=== PATIENT | male | born 1945 | race Caucasian/White ===

== ENCOUNTER 2016-07-11 17:50 | Inpatient (IN) | payer MEDICARE, OTHER ==
[2016-07-11] MEDS ORDERED: Sodium Chloride 0.9% 10 ML Syringe FLUSH PRN (18:50)
[2016-07-11] MEDS ORDERED: Sodium Chloride 0.9% 1,000 ML IV SCH (19:00)
[2016-07-11] MEDS ORDERED: HYDROmorphone 0.5 MG/0.5 ML Syringe IVPUSH ONE (20:59)
[2016-07-11] MEDS ORDERED: Ondansetron 4 MG/2 ML SDV IVPUSH ONE (21:00)
--- NOTE | 2016-07-11 22:17 | EDM.PDOC ---
ED HPI LOWER BACK PAIN/INJURY - General Chief Complaint: Back Pain or Injury Stated Complaint: BACK PAIN Time Seen by Provider: 07/11/16 18:13 Source: Reports: Family History Limitations: Reports: Altered mental status - History of Present Illness INITIAL COMMENTS - FREE TEXT/NARRATIVE: This gentleman is brought in today mostly for back pain. He has a history of spinal stenosis and had an MRI last Saturday. He hasn't ointment tomorrow with the orthopedic surgeon. he's had some flulike symptoms for the past week. There 's been back pain for about one month. It's gotten worse over the past 3 days and now he is unable to get out of bed. His said that she and her son had to help him stand to use a walker and then you really couldn't even do that. He also seems to be confused today and doesn't know the day or date. The patient does complain of some generalized back pain he said his skin of all over the lower back. His did not note any leg weakness when she had him stand up. - Related Data Allergies/ADRs: Allergies Allergy/AdvReac Type Severity Reaction Status Date / Time No Known Allergies Allergy Verified 07/11/16 17:59 Home Meds: Home Meds Atenolol [Atenolol] 50 mg PO DAILY 07/11/16 [History] Carvedilol [Carvedilol] 6.25 mg PO BID 07/11/16 [History] HYDROcodone/Ibuprofen [Hydrocodone-Ibuprofen 5-200 mg] 1 each PO Q4HR 07/11/16 [ History] Insulin Glarg,Human.Rec.Analog [Lantus] 50 units SQ BEDTIME 07/11/16 [History] Pantoprazole [Protonix] 40 mg PO DAILY 07/11/16 [History] Ramipril [Ramipril] 10 mg PO BID 07/11/16 [History] Spironolactone 50 mg PO DAILY 07/11/16 [History] Warfarin [Coumadin] 5 mg PO ASDIRECTED 07/11/16 [History] traMADol [Ultram] 50 mg PO Q4H PRN 07/11/16 [History] Past Medical History Cardiovascular History: Reports: Heart valve replacement, Hypertension Respiratory History: Reports: Sleep apnea Gastrointestinal History: Reports: GERD Musculoskeletal History: Reports: Arthritis, Gout Endocrine/Metabolic History: Reports: Diabetes, type II - Infectious Disease History Infectious Disease History: Reports: Chicken pox, Influenza, Measles - Past Surgical History HEENT Surgical History: Reports: Other (see below) Other HEENT Surgeries/Procedures: eye bleed with repair GI Surgical History: Reports: Appendectomy Social & Family History - Tobacco Use Smoking Status *Q: Former Smoker Tobacco Use Comment: quit 20 years ago - Caffeine Use Caffeine Use: Reports: Coffee - Recreational Drug Use Recreational Drug Use: No ED ROS GENERAL - Review of Systems Review Of Systems: See Below (Review of systems Gen. he is given by his ) Constitutional: Reports: weakness HEENT: Reports: No symptoms Respiratory: Reports: no symptoms Cardiovascular: Reports: No symptoms Endocrine: Reports: no symptoms GI/Abdominal: Reports: No symptoms : Reports: no symptoms Musculoskeletal: Reports: no symptoms Skin: Reports: no symptoms Neurological: Reports: confusion Psychiatric: Reports: No symptoms ED EXAM,LOWER BACK PAIN/INJURY - Physical Exam Exam: See Below Exam Limited By: No limitations General Appearance: alert, mild distress Eye Exam: bilateral eye: normal inspection, PERRL Ears: normal TMs Nose: normal inspection Throat/Mouth: Normal inspection, Normal oropharynx Head: atraumatic Neck: normal inspection Respiratory/Chest: lungs clear Cardiovascular: regular rate, rhythm GI/Abdominal: soft, non tender Back Exam: normal inspection Extremities: normal inspection Neurological: alert, CN II-XII intact, other (Appears to move all extremities normally. I did not stand this patient up to check balance) Psychiatric: normal mood Course - Vital Signs Last Recorded V/S: Last Vital Signs Temp 37.4 C 07/11/16 21:14 Pulse 82 07/11/16 19:37 Resp 16 07/11/16 19:37 BP 161/87 H 07/11/16 19:37 Pulse Ox 96 07/11/16 19:37 - Orders/Labs/Meds Orders: Active Orders 24 hr Category Date Time Status EKG Documentation Completion [RC] ASDIRECTED Care 07/11/16 18:50 Active Abdomen Ltd [US] Stat Exams 07/11/16 22:10 Ordered Abdomen Pelvis wo Cont [CT] Stat Exams 07/11/16 21:13 Taken Chest 2V [CR] Urgent Exams 07/11/16 18:50 Taken Head wo Cont [CT] Stat Exams 07/11/16 21:13 Taken Sodium Chloride 0.9% [Normal Saline] 1,000 ml Med 07/11/16 19:00 Active IV ASDIRECTED Sodium Chloride 0.9% [Saline Flush] Med 07/11/16 18:50 Active 10 ml FLUSH ASDIRECTED PRN Saline Lock Insert [OM.PC] Urgent Oth 07/11/16 18:50 Ordered EKG 12 Lead [EK] Urgent Ther 07/11/16 18:50 Ordered Medication Orders Sodium Chloride (Normal Saline) 1,000 mls @ 999 mls/hr IV ASDIRECTED PATRICK Last Admin: 07/11/16 18:58 Dose: 999 mls/hr Sodium Chloride (Saline Flush) 10 ml FLUSH ASDIRECTED PRN PRN Reason: Keep Vein Open Last Admin: 07/11/16 18:58 Dose: 10 ml Labs: Laboratory Tests 07/11/16 07/11/16 07/11/16 Range/Units 18:50 18:50 18:50 WBC 12.6 H (4.5-11.0) K/uL RBC 4.16 L (4.30-5.90) M/uL Hgb 12.5 (12.0-15.0) g/dL Hct 36.8 L (40.0-54.0) % MCV 89 (80-98) fL MCH 30 (27-31) pg MCHC 34 (32-36) % Plt Count 316 (150-400) K/uL Neut % (Auto) 82 H (36-66) % Lymph % (Auto) 7 L (24-44) % [place] % (Auto) 10 H (2-6) % Eos % (Auto) 1 L (2-4) % Baso % (Auto) 0 (0-1) % PT > 100.0 H (9.5-12.0) sec INR (0.80-1.20) Sodium 129 L (140-148) mmol/L Potassium 4.8 (3.6-5.2) mmol/L Chloride 93 L (100-108) mmol/L Carbon Dioxide 27 (21-32) mmol/L Anion Gap 13.8 (5.0-14.0) mmol/L BUN 18 (7-18) mg/dL Creatinine 1.0 (0.8-1.3) mg/dL Est Cr Clr Drug Dosing 79.92 mL/min Estimated GFR (MDRD) > 60 (>60) Glucose 111 H (74-106) mg/dL Calcium 8.7 (8.5-10.1) mg/dL Total Bilirubin 0.8 (0.2-1.0) mg/dL AST 22 (15-37) U/L ALT 19 (12-78) U/L Alkaline Phosphatase 62 (46-116) U/L Total Protein 7.6 (6.4-8.2) g/dL Albumin 2.7 L (3.4-5.0) g/dL Globulin 4.9 H (2.3-3.5) g/dL Albumin/Globulin Ratio 0.6 L (1.2-2.2) Urine Color Urine Appearance Urine pH (4.5-8.0) Ur Specific [place] (1.008-1.030) Urine Protein (NEGATIVE) mg/dL Urine Glucose (UA) (NEGATIVE) mg/dL Urine Ketones (NEGATIVE) mg/dL Urine Occult Blood (NEGATIVE) Urine Nitrite (NEGAITVE) Urine Bilirubin (NEGATIVE) Urine Urobilinogen (NORMAL) mg/dL Ur Leukocyte Esterase (NEGATIVE) Urine RBC (0-5) Urine WBC (0-5) Ur Epithelial Cells Amorphous Sediment Urine Bacteria Urine Mucus 07/11/16 Range/Units 20:07 WBC (4.5-11.0) K/uL RBC (4.30-5.90) M/uL Hgb (12.0-15.0) g/dL Hct (40.0-54.0) % MCV (80-98) fL MCH (27-31) pg MCHC (32-36) % Plt Count (150-400) K/uL Neut % (Auto) (36-66) % Lymph % (Auto) (24-44) % [place] % (Auto) (2-6) % Eos % (Auto) (2-4) % Baso % (Auto) (0-1) % PT (9.5-12.0) sec INR (0.80-1.20) Sodium (140-148) mmol/L Potassium (3.6-5.2) mmol/L Chloride (100-108) mmol/L Carbon Dioxide (21-32) mmol/L Anion Gap (5.0-14.0) mmol/L BUN (7-18) mg/dL Creatinine (0.8-1.3) mg/dL Est Cr Clr Drug Dosing mL/min Estimated GFR (MDRD) (>60) Glucose (74-106) mg/dL Calcium (8.5-10.1) mg/dL Total Bilirubin (0.2-1.0) mg/dL AST (15-37) U/L ALT (12-78) U/L Alkaline Phosphatase (46-116) U/L Total Protein (6.4-8.2) g/dL Albumin (3.4-5.0) g/dL Globulin (2.3-3.5) g/dL Albumin/Globulin Ratio (1.2-2.2) Urine Color Other Urine Appearance Slightly cloudy Urine pH 5.0 (4.5-8.0) Ur Specific [place] 1.025 (1.008-1.030) Urine Protein 30 H (NEGATIVE) mg/dL Urine Glucose (UA) Normal (NEGATIVE) mg/dL Urine Ketones 15 H (NEGATIVE) mg/dL Urine Occult Blood Large (NEGATIVE) Urine Nitrite Negative (NEGAITVE) Urine Bilirubin Small (NEGATIVE) Urine Urobilinogen 4 (NORMAL) mg/dL Ur Leukocyte Esterase Negative (NEGATIVE) Urine RBC 40-50 H (0-5) Urine WBC 0-5 (0-5) Ur Epithelial Cells Few Amorphous Sediment Few Urine Bacteria Rare Urine Mucus Many Meds: Medications Generic Name Dose Route Start Last Admin Trade Name Freq PRN Reason Stop Dose Admin Sodium Chloride 1,000 mls @ 999 mls/hr 07/11/16 19:00 07/11/16 18:58 Normal Saline IV 999 mls/hr ASDIRECTED PATRICK Administration Sodium Chloride 10 ml 07/11/16 18:50 07/11/16 18:58 Saline Flush FLUSH 10 ml ASDIRECTED PRN Administration Keep Vein Open Discontinued Medications Generic Name Dose Route Start Last Admin Trade Name Freq PRN Reason Stop Dose Admin Hydromorphone HCl 0.5 mg 07/11/16 20:59 07/11/16 21:05 Dilaudid IVPUSH 07/11/16 21:00 0.5 mg ONETIME ONE Administration Ondansetron HCl 4 mg 07/11/16 21:00 07/11/16 21:05 Zofran IVPUSH 07/11/16 21:01 4 mg ONETIME ONE Administration - Radiology Interpretation Free Text/Narrative:: Chest x-ray shows normal heart size normal lung markings. Ahead and abdominal CTs were ordered after the patient was passed off to the hospitalist service. The CT shows an evolving cerebellar infarct - Re-Assessments/Exams Free Text/Narrative Re-Assessment/Exam: 07/11/16 22:21 Lore Mckinley with the hospitalist service was contacted and this patient will be admitted for further care Departure - Departure Time of Disposition: 22:21 Disposition: Admitted As Inpatient 67 Condition: serious Clinical Impression: Cerebellar infarct Forms: ED Department Discharge - My Orders Last 24 Hours: My Active Orders 07/11/16 18:50 EKG Documentation Completion [RC] ASDIRECTED Chest 2V [CR] Urgent Sodium Chloride 0.9% [Saline Flush] 10 ml FLUSH ASDIRECTED PRN Saline Lock Insert [OM.PC] Urgent EKG 12 Lead [EK] Urgent 07/11/16 19:00 Sodium Chloride 0.9% [Normal Saline] 1,000 ml IV ASDIRECTED - Assessment/Plan Last 24 Hours: My Active Orders 07/11/16 18:50 EKG Documentation Completion [RC] ASDIRECTED Chest 2V [CR] Urgent Sodium Chloride 0.9% [Saline Flush] 10 ml FLUSH ASDIRECTED PRN Saline Lock Insert [OM.PC] Urgent EKG 12 Lead [EK] Urgent 07/11/16 19:00 Sodium Chloride 0.9% [Normal Saline] 1,000 ml IV ASDIRECTED
[2016-07-11] MEDS ORDERED: HYDROmorphone 1 MG/ML Syringe IVPUSH ONE (22:33)
[2016-07-12] MEDS ORDERED: Albuterol 0.083% 2.5 MG/3 ML Neb Soln NEB PRN (00:10)
[2016-07-12] MEDS ORDERED: Ondansetron 4 MG Tab.DIS PO PRN (00:10)
[2016-07-12] MEDS ORDERED: LORazepam 2 MG/ML MDV IV PRN (00:10)
[2016-07-12] MEDS ORDERED: Zolpidem 5 MG Tab PO PRN (00:10)
[2016-07-12] MEDS ORDERED: HYDROmorphone 1 MG/ML Syringe IVPUSH PRN (00:10)
[2016-07-12] MEDS ORDERED: Bisacodyl 5 MG Tab PO PRN (00:10)
[2016-07-12] MEDS ORDERED: Docusate Sodium 100 MG Cap PO PRN (00:10)
[2016-07-12] MEDS ORDERED: Naloxone 0.4 MG/ML SDV IVPUSH PRN (00:10)
[2016-07-12] MEDS: Sodium Chloride 0.9% 1,000 ML IV SCH ×4 (01:29→19:22)
[2016-07-12] MEDS: Acetaminophen/HYDROcodone 325-5 MG Tab PO PRN ×4 (01:32→21:36)
--- NOTE | 2016-07-12 07:40 | PCM.HP ---
H&P History of Present Illness - General Date of Service: 07/11/16 Admit Problem/Dx: Admission Diagnosis/Problem Admission Diagnosis/Problem Ischemic stroke/CVA Source of Information: Patient, Family (Spouse) History Limitations: Reports: Altered mental status - History of Present Illness Initial Comments - Free Text/Narative: hsitory of present illness, ER notes This gentleman is brought in today mostly for back pain. He has a history of spinal stenosis and had an MRI last Saturday. He has appointment tomorrow with the orthopedic surgeon. he's had some flu-like symptoms for the past week. There's been back pain for about one month. It's gotten worse over the past 3 days and now he is unable to get out of bed. His said that she and her son had to help him stand to use a walker and then you really couldn't even do that. He also seems to be confused today and doesn't know the day or date. The patient does complain of some generalized back pain he said his skin of all over the lower back. His did not note any leg weakness when she had him stand up. reports did not get out of bed for 3 days due to back pain, decreased appetite. no vomiting., diarrhea, or constipation. Report was active and productive until 05-12-2016, when came in the house from working in the garage, sat down on a chair, said he was cold and didn't feel well. then he was sick for a month with flu like illness, worsen back pain, this past 3 weeks , difficulty walking due to weakness, decreasing appetite, weight loss over 15 pounds, he did have a day of confusion in May, but it was felt due to not eating for a couple of days. She is here today for back pain, unable to care for him at home due to increasing weakness, confusion, and pain. labs and imaging: Chest x-ray shows normal heart size normal lung markings. Ahead and abdominal CTs were ordered after the patient was transfer to the hospitalist service. The CT shows an evolving cerebellar infarct abdomen and pelvis; distended gallbladder withh apparent mild pericholecystic stranding versus artifact, splenomegaly. plan; consult with Hospitalist, and [facility] Neurologist; will admit to [facility] for further care and evaluation. Onset of Symptoms: Reports: gradual Duration of Symptoms: Reports: Getting worse Location: Reports: generalized Quality: Reports: Sharp (back), Stabbing (back) Severity: moderate Improves with: Reports: Rest (and medication) Worsens with: Reports: Movement Associated Symptoms: Reports: confusion (new onset), weakness Middle Back Pain Score (Numeric/FACES): 7 - Related Data Allergies/Adverse Reactions: Allergies Allergy/AdvReac Type Severity Reaction Status Date / Time No Known Allergies Allergy Verified 07/11/16 17:59 Home Medications: Home Meds Atenolol [Atenolol] 50 mg PO DAILY 07/11/16 [History] Carvedilol [Carvedilol] 6.25 mg PO BID 07/11/16 [History] HYDROcodone/Ibuprofen [Hydrocodone-Ibuprofen 5-200 mg] 1 each PO Q4HR 07/11/16 [ History] Insulin Glarg,Human.Rec.Analog [Lantus] 50 units SQ BEDTIME 07/11/16 [History] Pantoprazole [Protonix] 40 mg PO DAILY 07/11/16 [History] Ramipril [Ramipril] 10 mg PO BID 07/11/16 [History] Spironolactone 50 mg PO DAILY 07/11/16 [History] Warfarin [Coumadin] 5 mg PO ASDIRECTED 07/11/16 [History] traMADol [Ultram] 50 mg PO Q4H PRN 07/11/16 [History] Past Medical History Cardiovascular History: Reports: Afib, Heart murmur, Heart valve replacement, Hypertension Respiratory History: Reports: Sleep apnea Gastrointestinal History: Reports: GERD Musculoskeletal History: Reports: Arthritis, Back pain, chronic, Gout Other Neuro History: acute confusion in the last 3 days Endocrine/Metabolic History: Reports: Diabetes, type II - Infectious Disease History Infectious Disease History: Reports: Chicken pox, Influenza, Measles - Past Surgical History HEENT Surgical History: Reports: Other (see below) Other HEENT Surgeries/Procedures: eye bleed with repair of retina Cardiovascular Surgical History: Reports: Valve replacement GI Surgical History: Reports: Appendectomy Other Musculoskeletal Surgeries/Procedures:: spinal stenosis Social & Family History - Family History Cardiac: Reports: ID : Reports: None OBGYN: Reports: None Neurological: Reports: Parkinson's Other Neurological Family History: mother Endocrine/Metabolic: Reports: Diabetes, type II - Tobacco Use Smoking Status *Q: Former Smoker Used Tobacco, but Quit: Yes Month Tobacco Last Used: 16 years ago Tobacco Use Comment: quit 20 years ago - Caffeine Use Caffeine Use: Reports: Coffee Other Caffeine Use: a couple cups a day - Recreational Drug Use Recreational Drug Use: No H&P Review of Systems - Review of Systems: Review Of Systems: See Below General: Reports: other (complaints of acute and chronic back pain for the past month.) HEENT: Reports: visual changes (recent hemorrhage of conjunctivia. has been seen by [facility].) Pulmonary: Reports: cough Cardiovascular: Reports: no symptoms Gastrointestinal: Reports: Abdominal pain Genitourinary: Reports: other (decreasing urine output for 3 days) Musculoskeletal: Reports: neck pain, back pain (MRI spinal stenosis.), muscle pain (generalized back) Skin: Reports: dryness Psychiatric: Reports: confusion (Spouse noted changes today, seem confused with intermittent agitation.) Neurological: Reports: confusion, difficulty walking, weakness, gait disturbance Hematologic/Lymphatic: Reports: easy bleeding (coumadin therapy for heart valve , hx a-fib), easy bruising Immunologic: Reports: no symptoms Exam - Exam Exam: See Below - Vital Signs Vital Signs: Last Vital Signs Temp 35.9 C 07/12/16 07:22 Pulse 72 07/12/16 07:22 Resp 18 07/12/16 07:22 BP 159/88 H 07/12/16 07:22 Pulse Ox 97 07/12/16 07:22 Weight: 101.151 kg - Exam General: alert, cooperative, mild distress HEENT: PERRLA, EOMI, Nares patent, Posterior pharynx clear, Pupils equal, Pupils reactive, TMs clear, Glasses (reading), Other (left conjunctivia with resolving hemorrhage) Neck: supple, trachea midline, other (pain at base of neck with palpation.) Lungs: Clear to auscultation, Normal respiratory effort Cardiovascular: regular rate, regular rhythm, normal S1, normal S2, other ( murmur noted) Abdomen: normal bowel sounds, tenderness (pain across mid section of abdomen. Patient report not painful, but moan and whinces when examined.) (Male) Exam: Deferred Rectal (Males) Exam: Deferred Back Exam: normal inspection, muscle spasm, vertebral tenderness Extremities: normal inspection, normal pulses Skin: warm, dry, intact Neurological: strength equal bilateral Neuro Extensive - Mental Status: alert, disorientation to time, inattentive Neuro Extensive - Motor, Sensory, Reflexes: motor/sensory deficits, abnormal gait Psychiatric: other (pleasant, answer yes to every question) - Patient Data Lab Results last 24 hrs: Laboratory Results - last 24 hr 07/12/16 07/12/16 Range/Units 05:18 05:18 WBC 9.9 (4.5-11.0) K/uL RBC 3.75 L (4.30-5.90) M/uL Hgb 11.4 L (12.0-15.0) g/dL Hct 33.2 L (40.0-54.0) % MCV 89 (80-98) fL MCH 30 (27-31) pg MCHC 34 (32-36) % Plt Count 280 (150-400) K/uL Neut % (Auto) 74 H (36-66) % Lymph % (Auto) 13 L (24-44) % [place] % (Auto) 12 H (2-6) % Eos % (Auto) 1 L (2-4) % Baso % (Auto) 0 (0-1) % Sodium 131 L (140-148) mmol/L Potassium 4.7 (3.6-5.2) mmol/L Chloride 98 L (100-108) mmol/L Carbon Dioxide 24 (21-32) mmol/L Anion Gap 13.7 (5.0-14.0) mmol/L BUN 20 H (7-18) mg/dL Creatinine 1.0 (0.8-1.3) mg/dL Est Cr Clr Drug Dosing 79.92 mL/min Estimated GFR (MDRD) > 60 (>60) Glucose 187 H (74-106) mg/dL Calcium 8.4 L (8.5-10.1) mg/dL Result Diagrams: 07/12/16 05:18 07/12/16 05:18 *Q Meaningful Use (ADM) - VTE *Q VTE Criteria *Q: - Stroke *Q Stroke Criteria *Q: - AMI *Q AMI Criteria *Q: - Problem List (1) Spinal stenosis SNOMED Code(s): 89445784 ICD Code: M48.00 - SPINAL STENOSIS, SITE UNSPECIFIED Status: Acute Priority: High Current Visit: Yes Qualifiers: Spinal region: lumbar Qualified Code(s): M48.06 - Spinal stenosis, lumbar region (2) Cerebellar infarct SNOMED Code(s): 89945417 ICD Code: I63.9 - CEREBRAL INFARCTION, UNSPECIFIED Status: Acute Priority : High Current Visit: Yes (3) Abdominal pain SNOMED Code(s): 50479334 ICD Code: R10.9 - UNSPECIFIED ABDOMINAL PAIN Status: Acute Current Visit : Yes Qualifiers: Abdominal location: upper abdomen, unspecified Qualified Code(s): R10.10 - Upper abdominal pain, unspecified (4) Diabetes type 2, uncontrolled SNOMED Code(s): 61743756, 863149573 ICD Code: E11.65 - TYPE 2 DIABETES MELLITUS WITH HYPERGLYCEMIA Status: Acute Current Visit: Yes Qualifiers: Diabetes mellitus complication status: with ophthalmic complications Diabetes mellitus complication detail: with other ophthalmic complication Diabetes mellitus terminal worker insulin use: with terminal worker use Qualified Code(s) : E11.39 - Type 2 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 ; E11.65 - Type 2 diabetes mellitus with hyperglycemia; 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 Problem List Initiated/Reviewed/Updated: Yes Orders Last 24hrs: Active Orders 24 hr Category Date Time Status Patient Status [ADT] Routine ADT 07/12/16 00:10 Active Bedrest Bedside Commode [RC] ASDIRECTED Care 07/12/16 00:10 Active Blood Glucose Check, Bedside [RC] QIDACANDBED Care 07/12/16 00:10 Active Cardiac Monitoring [RC] .As Directed Care 07/12/16 00:10 Active Diabetes Education [RC] Click to Edit Care 07/12/16 00:10 Active Intake and Output [RC] QSHIFT Care 07/12/16 00:10 Active Notify Provider Consults [RC] ASDIRECTED Care 07/12/16 07:37 Ordered Notify Provider [RC] PRN Care 07/12/16 00:10 Active Oxygen Therapy [RC] PRN Care 07/12/16 00:10 Active RT Aerosol Therapy [RC] ASDIRECTED Care 07/12/16 00:10 Active VTE/DVT Education [RC] Per Unit Routine Care 07/12/16 00:10 Active Vital Signs [RC] Q4H Care 07/12/16 00:10 Active Consult to Physician [CONS] Routine Cons 07/12/16 07:31 Ordered Consult to Spiritual Care [CONS] Routine Cons 07/12/16 00:10 Active Nothing per Oral After Midnight Diet [DIET] Diet 07/12/16 Breakfast Active Brain wo Cont [MR] Urgent Exams 07/12/16 08:10 Ordered CULTURE URINE [RM] Stat Lab 07/12/16 02:07 Received GLUCOSE POC LAB TO COLLECT [POC] QIDACANDBED Lab 07/12/16 11:30 Ordered GLUCOSE POC LAB TO COLLECT [POC] QIDACANDBED Lab 07/12/16 16:30 Ordered GLUCOSE POC LAB TO COLLECT [POC] QIDACANDBED Lab 07/12/16 21:00 Ordered Acetaminophen [Tylenol] Med 07/12/16 00:10 Active 650 mg PO Q4H PRN Acetaminophen/HYDROcodone [[place] 325-5 MG] Med 07/12/16 00:10 Active 2 tab PO Q4H PRN Albuterol [Proventil Neb Soln] Med 07/12/16 00:10 Active 2.5 mg NEB Q4H PRN Atenolol [Tenormin] Med 07/12/16 09:00 Active 50 mg PO DAILY Bisacodyl [Dulcolax] Med 07/12/16 00:10 Active 5 mg PO DAILY PRN Carvedilol [Coreg] Med 07/12/16 09:00 Active 6.25 mg PO BID Docusate Sodium [Colace] Med 07/12/16 00:10 Active 100 mg PO BID PRN HYDROmorphone [Dilaudid] Med 07/12/16 00:10 Active 1 mg IVPUSH Q2H PRN Insulin Aspart [NovoLOG] Med 07/12/16 00:10 Active See Protocol SUBCUT ASDIRECTED Insulin Detemir [Levemir] Med 07/12/16 21:00 Active 50 unit SUBCUT BEDTIME LORazepam [Ativan] Med 07/12/16 00:10 Active 1 mg IV Q6H PRN Naloxone [Narcan] Med 07/12/16 00:10 Active 0.4 mg IVPUSH Q2M PRN Ondansetron [Zofran ODT] Med 07/12/16 00:10 Active 4 mg PO Q6H PRN Pantoprazole [Protonix IV] Med 07/12/16 09:00 Active 40 mg IVPUSH DAILY Ramipril [Altace] Med 07/12/16 09:00 Active 10 mg PO BID Sodium Chloride 0.9% [Normal Saline] 1,000 ml Med 07/12/16 00:10 Active IV ASDIRECTED Spironolactone [Aldactone] Med 07/12/16 09:00 Active 50 mg PO DAILY Zolpidem [Ambien] Med 07/12/16 00:10 Active 5 mg PO BEDTIME PRN Medication Discontinuation Instructions [OM.PC] Stat Oth 07/12/16 00:10 Ordered Sequential Compression Device [OM.PC] Per Unit Routine Oth 07/12/16 00:10 Ordered Resuscitation Status Routine Resus Stat 07/11/16 22:37 Ordered Medication Orders Acetaminophen (Tylenol) 650 mg PO Q4H PRN PRN Reason: Pain (Mild 1-3)/fever Acetaminophen/Hydrocodone Bitart ([place] 325-5 Mg) 2 tab PO Q4H PRN PRN Reason: Pain (moderate 4-6) Last Admin: 07/12/16 05:56 Dose: 2 tab Admin: 07/12/16 01:32 Dose: 2 tab Albuterol (Proventil Neb Soln) 2.5 mg NEB Q4H PRN PRN Reason: Shortness Of Breath/wheezing Atenolol (Tenormin) 50 mg PO DAILY PATRICK Bisacodyl (Dulcolax) 5 mg PO DAILY PRN PRN Reason: Constipation Carvedilol (Coreg) 6.25 mg PO BID PATRICK Docusate Sodium (Colace) 100 mg PO BID PRN PRN Reason: Constipation Hydromorphone HCl (Dilaudid) 1 mg IVPUSH Q2H PRN PRN Reason: Pain Sodium Chloride (Normal Saline) 1,000 mls @ 125 mls/hr IV ASDIRECTED PATRICK Last Admin: 07/12/16 01:29 Dose: 125 mls/hr Insulin Aspart (Novolog) 0 unit SUBCUT ASDIRECTED PATRICK PRN Reason: Protocol Insulin Detemir (Levemir) 50 unit SUBCUT BEDTIME [facility] Lorazepam (Ativan) 1 mg IV Q6H PRN PRN Reason: Nausea/Vomiting Naloxone HCl (Narcan) 0.4 mg IVPUSH Q2M PRN PRN Reason: Respiratory Distress Ondansetron HCl (Zofran Odt) 4 mg PO Q6H PRN PRN Reason: Nausea able to take PO Pantoprazole Sodium (Protonix Iv) 40 mg IVPUSH DAILY PATRICK Ramipril (Altace) 10 mg PO BID PATRICK Spironolactone (Aldactone) 50 mg PO DAILY PATRICK Zolpidem Tartrate (Ambien) 5 mg PO BEDTIME PRN PRN Reason: Sleep Assessment/Plan Comment:: ASSESSMENT / PLAN: admit to [address] [place] [address] of present illness, ER notes This gentleman is brought in today mostly for back pain. He has a history of spinal stenosis and had an MRI last Saturday. He has appointment tomorrow with the orthopedic surgeon. he's had some flu-like symptoms for the past week. There's been back pain for about one month. It's gotten worse over the past 3 days and now he is unable to get out of bed. His said that she and her son had to help him stand to use a walker and then you really couldn't even do that. He also seems to be confused today and doesn't know the day or date. The patient does complain of some generalized back pain he said his skin of all over the lower back. His did not note any leg weakness when she had him stand up. labs and imaging: Chest x-ray shows normal heart size normal lung markings. Ahead and abdominal CTs were ordered after the patient was transfer to the hospitalist service. The CT shows an evolving cerebellar infarct abdomen and pelvis; distended gallbladder withh apparent mild pericholecystic stranding versus artifact, splenomegaly. plan; consult with Hospitalist, and [facility] Neurologist; will admit to [facility] for further care and evaluation. Evolving left cerebellar infarct, additional left temporal lobe evolving ischemia can not be ruled out -consult with Dr. Sousa, Neurologist [facility], recommends MRI in am, and call with results to make recommendations for further care -order MRI of brain in am -bedrest Spinal Stensis -medications order for pain -physician consult to Dr. Tyree Whalen, Orthopedic Surgeon Abdominal pain -ultrasound abdomen complete in am -NPO after midnight til report/testing is completed -IV fluids; Normal Saline 125ml/hr --And a.m. labs: CBC, BMP, PT and INR Diabetes Type 2; poor control -Insulin; order Levimer 50 units at hs -Insulin sliding scale coverage; medium coverage Maintenance issues -Orders home meds: -Nutrition: NPO til am imaging is complete, then contact Hospitalist for order -Ramos catheter not indicated at this time -DVT: SCD, Coumadin therapy for Heart valve, will hold due to possible surgery and high PTT CODE STATUS: Full Admission status: Admit to [address] [place] [address] Admission justification. This patient will be admitted for inpatient services and is medically appropriate meeting medical necessity for inpatient admission as outlined in my documentation. I reasonably expect the patient will require inpatient services that span. Time over 2 midnights. I reasonably expect this patient to be discharged or transferred within 96 hours after admission to the [facility]. Disposition;home with [place] Primary care provider:Azul Palacio
[2016-07-12] MEDS ORDERED: Pantoprazole 40 MG Vial IVPUSH SCH (09:00)
[2016-07-12] MEDS ORDERED: Atenolol 50 MG Tab PO SCH (09:00)
[2016-07-12] MEDS: Spironolactone 25 MG Tab PO SCH (09:15)
--- NOTE | 2016-07-12 09:17 | CR ---
Chest 2V HISTORY: Pain COMPARISON: Chest CT scan 07/11/2016 FINDINGS: Prior median sternotomy. No focal infiltrates or effusions. Prior valve replacement.
[2016-07-12] MEDS: Insulin Aspart 100 Units/ML 3 ML Pen SUBCUT SCH ×3 (09:19→21:41)
--- NOTE | 2016-07-12 09:28 | US ---
Abdomen Ltd HISTORY: Distended gallbladder COMPARISON: CT scan 07/11/2016. FINDINGS: Gallbladder is mildly distended. No positive Friedman's sign. No gallbladder wall thickening . Common bile duct measures 4 mm. Liver appears normal. Right kidney unremarkable. No ascites. Infer ior vena cava patent. Mild splenomegaly. Pancreas not well seen due to overlying bowel gas. Impression: Distended gallbladder however no gallbladder wall thickening or stones seen. If patient has right up per quadrant pain HIDA scan could be considered to evaluate gallbladder function.
[2016-07-12] MEDS ORDERED: Phytonadione ORAL 5mg/5ml Soln Simple Syrup U/D PO ONE (09:45)
--- NOTE | 2016-07-12 10:35 | PCM.PN ---
- General Info Date of Service: 07/12/16 Functional Status: Reports: pain controlled, urinating - Review of Systems General: Reports: weakness Pulmonary: Denies: shortness of breath Gastrointestinal: Denies: Abdominal pain Musculoskeletal: Reports: back pain Systems Review Comment:: no acute events since the time of admission. The patient reports that he is feeling better today other than some lower back pain. No complaints of weakness. Family does report that he seems more confused than usual. He has been telling stories of [place] and thinks that he is in [place]. his echocardiogram looks good with normal left ventricular function and valves appear to be working well. MRI did show an evolving subacute stroke on the left side of the cerebellum. - Patient Data Vitals - most recent: Last Vital Signs Temp 35.9 C 07/12/16 07:22 Pulse 72 07/12/16 07:22 Resp 18 07/12/16 07:22 BP 159/88 H 07/12/16 09:15 Pulse Ox 97 07/12/16 07:22 Weight - most recent: 101.151 kg I&O - last 24 hours: Intake & Output 07/11/16 07/12/16 07/12/16 22:59 06:59 14:59 Output Total 400 Balance -400 Lab Results last 24 hrs: Laboratory Results - last 24 hr 07/12/16 07/12/16 07/12/16 Range/Units 04:50 05:18 05:18 WBC 9.9 (4.5-11.0) K/uL RBC 3.75 L (4.30-5.90) M/uL Hgb 11.4 L (12.0-15.0) g/dL Hct 33.2 L (40.0-54.0) % MCV 89 (80-98) fL MCH 30 (27-31) pg MCHC 34 (32-36) % Plt Count 280 (150-400) K/uL Neut % (Auto) 74 H (36-66) % Lymph % (Auto) 13 L (24-44) % [place] % (Auto) 12 H (2-6) % Eos % (Auto) 1 L (2-4) % Baso % (Auto) 0 (0-1) % PT > 100.0 H (9.5-12.0) sec Sodium 131 L (140-148) mmol/L Potassium 4.7 (3.6-5.2) mmol/L Chloride 98 L (100-108) mmol/L Carbon Dioxide 24 (21-32) mmol/L Anion Gap 13.7 (5.0-14.0) mmol/L BUN 20 H (7-18) mg/dL Creatinine 1.0 (0.8-1.3) mg/dL Est Cr Clr Drug Dosing 79.92 mL/min Estimated GFR (MDRD) > 60 (>60) Glucose 187 H (74-106) mg/dL Calcium 8.4 L (8.5-10.1) mg/dL Med Orders - Current: Current Medications Acetaminophen (Tylenol) 650 mg PO Q4H PRN PRN Reason: Pain (Mild 1-3)/fever Acetaminophen/Hydrocodone Bitart ([place] 325-5 Mg) 2 tab PO Q4H PRN PRN Reason: Pain (moderate 4-6) Last Admin: 07/12/16 05:56 Dose: 2 tab Albuterol (Proventil Neb Soln) 2.5 mg NEB Q4H PRN PRN Reason: Shortness Of Breath/wheezing Bisacodyl (Dulcolax) 5 mg PO DAILY PRN PRN Reason: Constipation Carvedilol (Coreg) 6.25 mg PO BID [facility] Docusate Sodium (Colace) 100 mg PO BID PRN PRN Reason: Constipation Hydromorphone HCl (Dilaudid) 1 mg IVPUSH Q2H PRN PRN Reason: Pain Sodium Chloride (Normal Saline) 1,000 mls @ 125 mls/hr IV ASDIRECTED [facility] Last Admin: 07/12/16 08:30 Dose: 125 mls/hr Insulin Aspart (Novolog) 0 unit SUBCUT ASDIRECTED [facility] PRN Reason: Protocol Last Admin: 07/12/16 09:19 Dose: 2 units Insulin Detemir (Levemir) 50 unit SUBCUT BEDTIME [facility] Lorazepam (Ativan) 1 mg IV Q6H PRN PRN Reason: Nausea/Vomiting Naloxone HCl (Narcan) 0.4 mg IVPUSH Q2M PRN PRN Reason: Respiratory Distress Ondansetron HCl (Zofran Odt) 4 mg PO Q6H PRN PRN Reason: Nausea able to take PO Ramipril (Altace) 10 mg PO BID [facility] Last Admin: 07/12/16 09:15 Dose: 10 mg Spironolactone (Aldactone) 50 mg PO DAILY [facility] Last Admin: 07/12/16 09:15 Dose: 50 mg Zolpidem Tartrate (Ambien) 5 mg PO BEDTIME PRN PRN Reason: Sleep Discontinued Medications Atenolol (Tenormin) 50 mg PO DAILY [facility] Hydromorphone HCl (Dilaudid) 0.5 mg IVPUSH ONETIME ONE Stop: 07/11/16 21:00 Last Admin: 07/11/16 21:05 Dose: 0.5 mg Hydromorphone HCl (Dilaudid) 1 mg IVPUSH ONETIME ONE Stop: 07/11/16 22:34 Last Admin: 07/11/16 22:42 Dose: 1 mg Sodium Chloride (Normal Saline) 1,000 mls @ 999 mls/hr IV ASDIRECTED [facility] Last Admin: 07/11/16 18:58 Dose: 999 mls/hr Ondansetron HCl (Zofran) 4 mg IVPUSH ONETIME ONE Stop: 07/11/16 21:01 Last Admin: 07/11/16 21:05 Dose: 4 mg Pantoprazole Sodium (Protonix Iv) 40 mg IVPUSH DAILY [facility] Last Admin: 07/12/16 09:14 Dose: 40 mg Pantoprazole Sodium (Protonix Iv) 40 mg IVPUSH DAILY [facility] Phytonadione (Aquamephyton) 2.5 mg PO ONETIME ONE Stop: 07/12/16 09:46 Last Admin: 07/12/16 09:57 Dose: 2.5 mg Sodium Chloride (Saline Flush) 10 ml FLUSH ASDIRECTED PRN PRN Reason: Keep Vein Open Last Admin: 07/11/16 18:58 Dose: 10 ml - Exam Quality Assessment: No: supplemental oxygen General: alert, oriented, cooperative, no acute distress HEENT: Pupils equal. No: Scleral icterus Neck: supple Lungs: Clear to auscultation, Normal respiratory effort Cardiovascular: regular rate, regular rhythm, murmurs (blowing beatrice llsb and apex ) Abdomen: soft, no distension Extremities: no edema, normal pulses, no cyanosis Neurological: normal speech, strength equal bilateral, other (EOM intact) Psy/Mental Status: alert, normal affect - Problem List & Annotations (1) Cerebellar infarct SNOMED Code(s): 55938809 Code(s): I63.9 - CEREBRAL INFARCTION, UNSPECIFIED Status: Acute Priority : High Current Visit: Yes (2) Spinal stenosis SNOMED Code(s): 74642530 Code(s): M48.00 - SPINAL STENOSIS, SITE UNSPECIFIED Status: Acute Priority: High Current Visit: Yes Qualifiers: Spinal region: lumbar Qualified Code(s): M48.06 - Spinal stenosis, lumbar region (3) Abdominal pain SNOMED Code(s): 91506327 Code(s): R10.9 - UNSPECIFIED ABDOMINAL PAIN Status: Acute Current Visit: Yes Qualifiers: Abdominal location: upper abdomen, unspecified Qualified Code(s): R10.10 - Upper abdominal pain, unspecified (4) Diabetes type 2, uncontrolled SNOMED Code(s): 82742473, 814441443 Code(s): E11.65 - TYPE 2 DIABETES MELLITUS WITH HYPERGLYCEMIA Status: Acute Current Visit: Yes Qualifiers: Diabetes mellitus complication status: with ophthalmic complications Diabetes mellitus complication detail: with other ophthalmic complication Diabetes mellitus terminal worker insulin use: with terminal worker use Qualified Code(s) : E11.39 - Type 2 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 ; E11.65 - Type 2 diabetes mellitus with hyperglycemia; Z79.4 - [facility] ( current) use of insulin - Problem List Review Problem List Initiated/Reviewed/Updated: Yes - My Orders Last 24 Hours: My Active Orders 07/12/16 09:22 Echo Comp wo Cont [US] Routine 07/13/16 05:00 BASIC METABOLIC PANEL,BMP [CHEM] Timed CBC W/O DIFF,HEMOGRAM [HEME] Timed (1) INR,PT,PROTHROMBIN TIME [COAG] Timed TSH ULTRASENSITIVE [CHEM] Timed 07/13/16 07:30 Pantoprazole [Protonix] 40 mg PO ACBREAKFAST - Plan Plan:: ASSESSMENT / PLAN: Left cerebellar infarct - CT scan suggestive and this was confirmed with an MRI. Appears to be subacute happening within the last few days. No obvious neurologic deficits at this time. Balance not fully assessed today. Echocardiogram did not show obvious source of thrombus. vital signs are acceptable at this time. He would benefit from better glycemic control and increased medical management as discussed below. -blood pressure control -Start statin -Aspirin daily -Warfarin -Physical therapy Supratherapeutic INR - level too high to calculate at this time. He does have a mechanical heart valve. I'm going to give him a small dose of vitamin K and recheck his level. We will need to try to keep him in the therapeutic range. -2.5 mg vitamin K today -INR in the morning Spinal Stensis - worsening back pain recently. X-ray shows mostly lower lumbar arthritis. MRI from [place] revealed lumbar spinal stenosis. -medications order for pain -outpatient followup with Dr. Tyree Whalen, Orthopedic Surgeon Abdominal pain - no pain today. CT scan showed distended gallbladder. Ultrasound did not show definitive evidence for acute cholecystitis. no pain at this time. -trial of regular diet -Monitor for pain Diabetes Type 2; poor control - sugars acceptable so far. -Insulin; order Levimer 50 units at -Insulin sliding scale coverage; medium coverage Maintenance issues -Orders home meds: -Nutrition: consistent carbohydrate diet -Ramos catheter not indicated at this time -DVT: SCD, Coumadin Disposition;home with , [place] Primary care provider:Azul Palacio M.D.
[2016-07-12] MEDS: Carvedilol 6.25 MG Tab PO SCH ×2 (11:50→21:28)
--- NOTE | 2016-07-12 12:00 | CR ---
Lumbar Spine Min 4V HISTORY: Back pain COMPARISON: MRI scan 07/04/2016. FINDINGS: Moderate degenerative change in the lower lumbar spine with loss of disc space and margina l osteophyte formation. With flexion and extension maneuvers there is no anterior or posterior sublu xation seen. No acute fracture.
--- NOTE | 2016-07-12 12:05 | MR ---
Brain wo Cont HISTORY: Evolving left cerebellar infarct COMPARISON: CT brain 07/11/2016 FINDINGS: Diffusion images demonstrate more recent or acute ischemia in the inferior medial aspect o f the left cerebellum measuring 4 cm x 2 cm in size. No other areas of recent ischemia. There is dif fuse cerebral atrophy. Chronic small vessel ischemic change in the periventricular region. No acute hemorrhage. Impression: 1. More recent area of ischemia in the inferior medial left cerebellum likely 3-7 days old. 2. No acute hemorrhage. Diffuse cerebral atrophy.
[2016-07-12] MEDS ORDERED: Insulin Detemir 100 Units/ML 3 ML Pen SUBCUT SCH (21:00)
[2016-07-12] MEDS: atorvaSTATin 20 MG Tab PO SCH (21:29)
[2016-07-12] MEDS: Insulin Detemir 100 Units/ML 3 ML Pen SUBCUT SCH (21:42)
[2016-07-13] MEDS: Sodium Chloride 0.9% 1,000 ML IV SCH ×2 (02:35→10:51)
[2016-07-13] MEDS: Acetaminophen/HYDROcodone 325-5 MG Tab PO PRN (07:29)
[2016-07-13] MEDS: Pantoprazole 40 MG Tab.CR PO SCH (07:29)
[2016-07-13] MEDS ORDERED: Pantoprazole 40 MG Tab.CR PO SCH (07:30)
[2016-07-13] MEDS ORDERED: Pantoprazole 40 MG Vial IVPUSH SCH (09:00)
[2016-07-13] MEDS: Spironolactone 25 MG Tab PO SCH (09:06)
[2016-07-13] MEDS: Carvedilol 6.25 MG Tab PO SCH ×2 (09:07→22:08)
[2016-07-13] MEDS: Aspirin 81 MG Tab.EC PO SCH (09:15)
[2016-07-13] MEDS ORDERED: HYDROmorphone 1 MG/ML Syringe IVPUSH PRN (11:23)
--- NOTE | 2016-07-13 11:25 | PCM.PN ---
- General Info Date of Service: 07/13/16 Functional Status: Reports: pain controlled, tolerating diet, ambulating - Review of Systems General: Reports: weakness Neurological: Reports: difficulty walking Systems Review Comment:: no acute events overnight. Blood sugar was low this morning but responded to juice and crackers. Patient says he feels well other than his ongoing back pain. No complaints of dizziness or lightheadedness. No shortness of breath. Back pain does not radiate. Pain pills aren't helping much. When he worked with physical therapy he had a tendency to lean to one side and backwards. Physical therapy evaluation recommended that he go to a longterm for a while for rehabilitation. - Patient Data Vitals - most recent: Last Vital Signs Temp 36.2 C 07/13/16 10:43 Pulse 71 07/13/16 10:43 Resp 16 07/13/16 10:43 BP 152/74 H 07/13/16 10:43 Pulse Ox 96 07/13/16 10:43 Weight - most recent: 101.151 kg I&O - last 24 hours: Intake & Output 07/12/16 07/13/16 07/13/16 22:59 06:59 14:59 Intake Total 2656 1591 240 Output Total 600 400 Balance 2056 1191 240 Lab Results last 24 hrs: Laboratory Results - last 24 hr 07/13/16 07/13/16 07/13/16 Range/Units 04:45 04:45 05:00 WBC 9.8 (4.5-11.0) K/uL RBC 3.24 L (4.30-5.90) M/uL Hgb 9.7 L (12.0-15.0) g/dL Hct 29.2 L (40.0-54.0) % MCV 90 (80-98) fL MCH 30 (27-31) pg MCHC 33 (32-36) % Plt Count 221 (150-400) K/uL PT 39.7 H (9.5-12.0) sec INR 3.60 H (0.80-1.20) Sodium 134 L (140-148) mmol/L Potassium 4.2 (3.6-5.2) mmol/L Chloride 102 (100-108) mmol/L Carbon Dioxide 26 (21-32) mmol/L Anion Gap 10.2 (5.0-14.0) mmol/L BUN 19 H (7-18) mg/dL Creatinine 0.9 (0.8-1.3) mg/dL Est Cr Clr Drug Dosing 88.83 mL/min Estimated GFR (MDRD) > 60 (>60) Glucose 59 L (74-106) mg/dL Calcium 8.0 L (8.5-10.1) mg/dL TSH, Ultra Sensitive 1.071 (0.358-3.740) uIU/mL Rito Results last 24 hrs: Microbiology 07/12/16 02:07 Urine Culture - Preliminary Urine, Clean Catch MIXED POSITIVE DRE DAY 1 Med Orders - Current: Current Medications Acetaminophen (Tylenol) 650 mg PO Q4H PRN PRN Reason: Pain (Mild 1-3)/fever Acetaminophen/Hydrocodone Bitart ([place] 325-5 Mg) 2 tab PO Q4H PRN PRN Reason: Pain (moderate 4-6) Last Admin: 07/13/16 07:29 Dose: 2 tab Albuterol (Proventil Neb Soln) 2.5 mg NEB Q4H PRN PRN Reason: Shortness Of Breath/wheezing Aspirin (Halfprin) 81 mg PO DAILY [facility] Last Admin: 07/13/16 09:15 Dose: 81 mg Atorvastatin Calcium (Lipitor) 40 mg PO BEDTIME [facility] Last Admin: 07/12/16 21:29 Dose: 40 mg Bisacodyl (Dulcolax) 5 mg PO DAILY PRN PRN Reason: Constipation Carvedilol (Coreg) 6.25 mg PO BID [facility] Last Admin: 07/13/16 09:07 Dose: 6.25 mg Docusate Sodium (Colace) 100 mg PO BID PRN PRN Reason: Constipation Hydromorphone HCl (Dilaudid) 1 mg IVPUSH Q2H PRN PRN Reason: Pain Last Admin: 07/13/16 02:18 Dose: 1 mg Sodium Chloride (Normal Saline) 1,000 mls @ 125 mls/hr IV ASDIRECTED [facility] Last Admin: 07/13/16 10:51 Dose: 125 mls/hr Insulin Aspart (Novolog) 0 unit SUBCUT ASDIRECTED [facility] PRN Reason: Protocol Last Admin: 07/12/16 21:41 Dose: 4 units Insulin Detemir (Levemir) 50 unit SUBCUT BEDTIME [facility] Last Admin: 07/12/16 21:42 Dose: 50 units Lorazepam (Ativan) 1 mg IV Q6H PRN PRN Reason: Nausea/Vomiting Last Admin: 07/12/16 23:18 Dose: 1 mg Naloxone HCl (Narcan) 0.4 mg IVPUSH Q2M PRN PRN Reason: Respiratory Distress Ondansetron HCl (Zofran Odt) 4 mg PO Q6H PRN PRN Reason: Nausea able to take PO Pantoprazole Sodium (Protonix) 40 mg PO ACBREAKFAST [facility] Last Admin: 07/13/16 07:29 Dose: 40 mg Ramipril (Altace) 10 mg PO BID [facility] Last Admin: 07/13/16 09:06 Dose: 10 mg Spironolactone (Aldactone) 50 mg PO DAILY [facility] Last Admin: 07/13/16 09:06 Dose: 50 mg Zolpidem Tartrate (Ambien) 5 mg PO BEDTIME PRN PRN Reason: Sleep Discontinued Medications Atenolol (Tenormin) 50 mg PO DAILY [facility] Last Admin: 07/12/16 15:06 Dose: Not Given Hydromorphone HCl (Dilaudid) 0.5 mg IVPUSH ONETIME ONE Stop: 07/11/16 21:00 Last Admin: 07/11/16 21:05 Dose: 0.5 mg Hydromorphone HCl (Dilaudid) 1 mg IVPUSH ONETIME ONE Stop: 07/11/16 22:34 Last Admin: 07/11/16 22:42 Dose: 1 mg Sodium Chloride (Normal Saline) 1,000 mls @ 999 mls/hr IV ASDIRECTED [facility] Last Admin: 07/11/16 18:58 Dose: 999 mls/hr Ondansetron HCl (Zofran) 4 mg IVPUSH ONETIME ONE Stop: 07/11/16 21:01 Last Admin: 07/11/16 21:05 Dose: 4 mg Pantoprazole Sodium (Protonix Iv) 40 mg IVPUSH DAILY [facility] Last Admin: 07/12/16 09:14 Dose: 40 mg Pantoprazole Sodium (Protonix Iv) 40 mg IVPUSH DAILY [facility] Phytonadione (Aquamephyton) 2.5 mg PO ONETIME ONE Stop: 07/12/16 09:46 Last Admin: 07/12/16 09:57 Dose: 2.5 mg Sodium Chloride (Saline Flush) 10 ml FLUSH ASDIRECTED PRN PRN Reason: Keep Vein Open Last Admin: 07/11/16 18:58 Dose: 10 ml - Exam Quality Assessment: No: supplemental oxygen General: alert, oriented, cooperative, no acute distress Neck: supple Lungs: Normal respiratory effort - Problem List & Annotations (1) Cerebellar infarct SNOMED Code(s): 47264233 Code(s): I63.9 - CEREBRAL INFARCTION, UNSPECIFIED Status: Acute Priority : High Current Visit: Yes (2) Spinal stenosis SNOMED Code(s): 10028456 Code(s): M48.00 - SPINAL STENOSIS, SITE UNSPECIFIED Status: Acute Priority: High Current Visit: Yes Qualifiers: Spinal region: lumbar Qualified Code(s): M48.06 - Spinal stenosis, lumbar region (3) Abdominal pain SNOMED Code(s): 26183138 Code(s): R10.9 - UNSPECIFIED ABDOMINAL PAIN Status: Acute Current Visit: Yes Qualifiers: Abdominal location: upper abdomen, unspecified Qualified Code(s): R10.10 - Upper abdominal pain, unspecified (4) Diabetes type 2, uncontrolled SNOMED Code(s): 41516859, 958987149 Code(s): E11.65 - TYPE 2 DIABETES MELLITUS WITH HYPERGLYCEMIA Status: Acute Current Visit: Yes Qualifiers: Diabetes mellitus complication status: with ophthalmic complications Diabetes mellitus complication detail: with other ophthalmic complication Diabetes mellitus manager long term care insulin use: with [facility] use Qualified Code(s) : E11.39 - Type 2 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 ; E11.65 - Type 2 diabetes mellitus with hyperglycemia; Z79.4 - [facility] ( current) use of insulin - Problem List Review Problem List Initiated/Reviewed/Updated: Yes - My Orders Last 24 Hours: My Active Orders 07/12/16 21:00 atorvaSTATin [Lipitor] 40 mg PO BEDTIME 07/12/16 Dinner Consistent Carbohydrate Diet [DIET] 07/13/16 06:30 POC Glucose [Blood Glucose Check, Bedside] [RC] ONETIME 07/13/16 07:30 Pantoprazole [Protonix] 40 mg PO ACBREAKFAST 07/13/16 09:00 Aspirin [Halfprin] 81 mg PO DAILY 07/13/16 09:39 PT Evaluation and Treatment [CONS] Routine 07/13/16 11:18 oxyCODONE 5 - 10 mg PO Q4H PRN 07/13/16 11:19 Convert IV to Saline Lock [OM.PC] Routine 07/13/16 11:20 Up With Assistance [RC] ASDIRECTED 07/13/16 11:22 Cooling Warming Measures [RC] ASDIRECTED Heat Therapy [OM.PC] Routine 07/13/16 11:23 HYDROmorphone [Dilaudid] 0.5 - 1 mg IVPUSH Q2H PRN 07/13/16 11:30 Gabapentin [Neurontin] 300 mg PO BID Lidocaine 5% [Lidoderm 5%] 700 mg TOP Q24H 07/13/16 13:00 Warfarin [Coumadin] 2.5 mg PO DAILY@1300 07/14/16 05:00 BASIC METABOLIC PANEL,BMP [CHEM] Timed HGB [HEMOGLOBIN] [HEME] Timed INR,PT,PROTHROMBIN TIME [COAG] Timed - Plan Plan:: ASSESSMENT / PLAN: Left cerebellar infarct - CT scan suggestive and this was confirmed with an MRI. clinical deficits currently include some balance difficulties but otherwise he seems to be doing well. Tolerating current medical cares. -blood pressure control -continue statin -Aspirin daily -Warfarin -Physical therapy Supratherapeutic INR - level now in normal range with a small dose of vitamin K. -2.5 mg vitamin K today -INR in the morning Spinal Stensis - worsening back pain recently. X-ray shows mostly lower lumbar arthritis. MRI from [place] revealed lumbar spinal stenosis. -start lidocaine patch -Acetaminophen -Trial of oxycodone -Physical therapy -outpatient followup with Dr. Tyree Whalen, Orthopedic Surgeon Abdominal pain - no pain today. CT scan showed distended gallbladder. Ultrasound did not show definitive evidence for acute cholecystitis. no pain at this time. -trial of regular diet -Monitor for pain Diabetes Type 2; poor control - sugars acceptable other than low sugar this morning. -Insulin; order Levimer 50 units at hs -Insulin sliding scale coverage; medium coverage Maintenance issues -Nutrition: consistent carbohydrate diet -Ramos catheter not indicated at this time -DVT: SCD, Coumadin Disposition - physical therapy recommending subacute rehabilitation at a longterm, no beds available until Saturday. Primary care provider:Azul Palacio M.D.
[2016-07-13] MEDS ORDERED: Lidocaine 5% 700 MG Patch TOP SCH (11:30)
[2016-07-13] MEDS: Gabapentin 300 MG Cap PO SCH ×2 (12:31→22:05)
[2016-07-13] MEDS: Warfarin 2.5 MG Tab PO SCH (12:31)
[2016-07-13] MEDS: oxyCODONE 5 MG Tab PO PRN ×3 (12:32→22:14)
[2016-07-13] MEDS: Acetaminophen 325 MG Tab PO PRN ×3 (12:32→22:14)
[2016-07-13] MEDS: Insulin Aspart 100 Units/ML 3 ML Pen SUBCUT SCH ×3 (12:34→22:02)
[2016-07-13] MEDS ORDERED: LORazepam 1 MG Tab PO PRN (15:21)
[2016-07-13] MEDS: Insulin Detemir 100 Units/ML 3 ML Pen SUBCUT SCH (22:03)
[2016-07-13] MEDS: atorvaSTATin 20 MG Tab PO SCH (22:04)
[2016-07-14] MEDS: oxyCODONE 5 MG Tab PO PRN ×5 (02:14→21:53)
[2016-07-14] MEDS: Pantoprazole 40 MG Tab.CR PO SCH (07:58)
[2016-07-14] MEDS: Lidocaine 5% 700 MG Patch TOP SCH (08:01)
[2016-07-14] MEDS: Insulin Aspart 100 Units/ML 3 ML Pen SUBCUT SCH ×4 (08:13→21:46)
[2016-07-14] MEDS: Carvedilol 12.5 MG Tab PO SCH ×2 (09:45→16:40)
[2016-07-14] MEDS: Spironolactone 25 MG Tab PO SCH (09:45)
[2016-07-14] MEDS: Gabapentin 300 MG Cap PO SCH ×2 (09:46→21:44)
[2016-07-14] MEDS: Aspirin 81 MG Tab.EC PO SCH (09:47)
--- NOTE | 2016-07-14 10:46 | PCM.PN ---
- General Info Date of Service: 07/14/16 Functional Status: Reports: pain controlled, tolerating diet, ambulating - Review of Systems General: Denies: weakness Gastrointestinal: Denies: Abdominal pain Neurological: Reports: difficulty walking Systems Review Comment:: No acute events overnight. Blood sugar was low again this morning though patient does not remember feeling symptomatic. Ongoing back pain but he thinks this is a little better today. Ambulation seems to be improving slightly. No complaints of weakness. Appetite has been good. He did have a fever overnight. No complaints of abdominal pain, cough or shortness of breath. - Patient Data Vitals - most recent: Last Vital Signs Temp 37.3 C 07/14/16 07:37 Pulse 82 07/14/16 09:45 Resp 16 07/14/16 07:37 BP 168/86 H 07/14/16 09:46 Pulse Ox 96 07/14/16 07:37 Weight - most recent: 101.151 kg I&O - last 24 hours: Intake & Output 07/13/16 07/14/16 07/14/16 22:59 06:59 14:59 Intake Total 420 840 Balance 420 840 Lab Results last 24 hrs: Laboratory Results - last 24 hr 07/14/16 07/14/16 07/14/16 Range/Units 05:40 05:40 05:40 Hgb 9.6 L (12.0-15.0) g/dL PT 35.5 H (9.5-12.0) sec INR 3.23 H (0.80-1.20) Sodium 133 L (140-148) mmol/L Potassium 4.1 (3.6-5.2) mmol/L Chloride 101 (100-108) mmol/L Carbon Dioxide 28 (21-32) mmol/L Anion Gap 8.1 (5.0-14.0) mmol/L BUN 15 (7-18) mg/dL Creatinine 0.8 (0.8-1.3) mg/dL Est Cr Clr Drug Dosing 99.94 mL/min Estimated GFR (MDRD) > 60 (>60) Glucose 50 L (74-106) mg/dL Calcium 8.2 L (8.5-10.1) mg/dL Rito Results last 24 hrs: Microbiology 07/12/16 02:07 Urine Culture - Final Urine, Clean Catch MIXED POSITIVE DRE DAY 2 Med Orders - Current: Current Medications Acetaminophen (Tylenol) 650 mg PO Q4H PRN PRN Reason: Pain (Mild 1-3)/fever Last Admin: 07/13/16 22:14 Dose: 650 mg Albuterol (Proventil Neb Soln) 2.5 mg NEB Q4H PRN PRN Reason: Shortness Of Breath/wheezing Aspirin (Halfprin) 81 mg PO DAILY [facility] Last Admin: 07/14/16 09:47 Dose: 81 mg Atorvastatin Calcium (Lipitor) 40 mg PO BEDTIME [facility] Last Admin: 07/13/16 22:04 Dose: 40 mg Bisacodyl (Dulcolax) 5 mg PO DAILY PRN PRN Reason: Constipation Carvedilol (Coreg) 12.5 mg PO BIDMEALS [facility] Last Admin: 07/14/16 09:45 Dose: 12.5 mg Docusate Sodium (Colace) 100 mg PO BID PRN PRN Reason: Constipation Gabapentin (Neurontin) 300 mg PO BID [facility] Last Admin: 07/14/16 09:46 Dose: 300 mg Hydromorphone HCl (Dilaudid) 0.5 - 1 mg IVPUSH Q2H PRN PRN Reason: Pain Insulin Aspart (Novolog) 0 unit SUBCUT ASDIRECTED [facility] PRN Reason: Protocol Last Admin: 07/14/16 08:13 Dose: 2 units Insulin Detemir (Levemir) 45 unit SUBCUT BEDTIME [facility] Lidocaine (Lidoderm 5%) 700 mg TOP Q24H [facility] Last Admin: 07/14/16 08:01 Dose: 700 mg Lorazepam (Ativan) 1 mg PO Q6H PRN PRN Reason: Anxiety Miscellaneous Information (Remove Patch) 0 ea TRDERM Q24H [facility] Naloxone HCl (Narcan) 0.4 mg IVPUSH Q2M PRN PRN Reason: Respiratory Distress Ondansetron HCl (Zofran Odt) 4 mg PO Q6H PRN PRN Reason: Nausea able to take PO Oxycodone HCl (Oxycodone) 5 - 10 mg PO Q4H PRN PRN Reason: Pain Last Admin: 07/14/16 06:50 Dose: 10 mg Pantoprazole Sodium (Protonix) 40 mg PO ACBREAKFAST [facility] Last Admin: 07/14/16 07:58 Dose: 40 mg Ramipril (Altace) 10 mg PO BID [facility] Last Admin: 07/14/16 09:46 Dose: 10 mg Spironolactone (Aldactone) 50 mg PO DAILY [facility] Last Admin: 07/14/16 09:45 Dose: 50 mg Warfarin Sodium (Coumadin) 2.5 mg PO DAILY@1300 [facility] Last Admin: 07/13/16 12:31 Dose: 2.5 mg Zolpidem Tartrate (Ambien) 5 mg PO BEDTIME PRN PRN Reason: Sleep Discontinued Medications Acetaminophen/Hydrocodone Bitart ([place] 325-5 Mg) 2 tab PO Q4H PRN PRN Reason: Pain (moderate 4-6) Last Admin: 07/13/16 07:29 Dose: 2 tab Atenolol (Tenormin) 50 mg PO DAILY [facility] Last Admin: 07/12/16 15:06 Dose: Not Given Carvedilol (Coreg) 6.25 mg PO BID [facility] Last Admin: 07/13/16 22:08 Dose: 6.25 mg Hydromorphone HCl (Dilaudid) 0.5 mg IVPUSH ONETIME ONE Stop: 07/11/16 21:00 Last Admin: 07/11/16 21:05 Dose: 0.5 mg Hydromorphone HCl (Dilaudid) 1 mg IVPUSH ONETIME ONE Stop: 07/11/16 22:34 Last Admin: 07/11/16 22:42 Dose: 1 mg Hydromorphone HCl (Dilaudid) 1 mg IVPUSH Q2H PRN PRN Reason: Pain Last Admin: 07/13/16 02:18 Dose: 1 mg Sodium Chloride (Normal Saline) 1,000 mls @ 999 mls/hr IV ASDIRECTED [facility] Last Admin: 07/11/16 18:58 Dose: 999 mls/hr Sodium Chloride (Normal Saline) 1,000 mls @ 125 mls/hr IV ASDIRECTED [facility] Last Admin: 07/13/16 10:51 Dose: 125 mls/hr Insulin Detemir (Levemir) 50 unit SUBCUT BEDTIME [facility] Last Admin: 07/13/16 22:03 Dose: 50 units Lidocaine (Lidoderm 5%) 700 mg TOP Q24H [facility] Last Admin: 07/13/16 12:31 Dose: 700 mg Lorazepam (Ativan) 1 mg IV Q6H PRN PRN Reason: Nausea/Vomiting Last Admin: 07/12/16 23:18 Dose: 1 mg Miscellaneous Information (Remove Patch) 0 ea TRDERM Q24H [facility] Last Admin: 07/13/16 23:00 Dose: Not Given Ondansetron HCl (Zofran) 4 mg IVPUSH ONETIME ONE Stop: 07/11/16 21:01 Last Admin: 07/11/16 21:05 Dose: 4 mg Pantoprazole Sodium (Protonix Iv) 40 mg IVPUSH DAILY [facility] Last Admin: 07/12/16 09:14 Dose: 40 mg Pantoprazole Sodium (Protonix Iv) 40 mg IVPUSH DAILY [facility] Phytonadione (Aquamephyton) 2.5 mg PO ONETIME ONE Stop: 07/12/16 09:46 Last Admin: 07/12/16 09:57 Dose: 2.5 mg Sodium Chloride (Saline Flush) 10 ml FLUSH ASDIRECTED PRN PRN Reason: Keep Vein Open Last Admin: 07/11/16 18:58 Dose: 10 ml - Exam Quality Assessment: No: supplemental oxygen General: alert, oriented, cooperative, no acute distress Neck: supple Lungs: Clear to auscultation, Normal respiratory effort Cardiovascular: regular rate, regular rhythm Abdomen: soft, no tenderness, no distension Extremities: no edema, no cyanosis Skin: warm, dry Neurological: no new focal deficit Psy/Mental Status: alert, normal affect - Problem List & Annotations (1) Cerebellar infarct SNOMED Code(s): 01976309 Code(s): I63.9 - CEREBRAL INFARCTION, UNSPECIFIED Status: Acute Priority : High Current Visit: Yes (2) Spinal stenosis SNOMED Code(s): 82429799 Code(s): M48.00 - SPINAL STENOSIS, SITE UNSPECIFIED Status: Acute Priority: High Current Visit: Yes Qualifiers: Spinal region: lumbar Qualified Code(s): M48.06 - Spinal stenosis, lumbar region (3) Abdominal pain SNOMED Code(s): 12979153 Code(s): R10.9 - UNSPECIFIED ABDOMINAL PAIN Status: Acute Current Visit: Yes Qualifiers: Abdominal location: upper abdomen, unspecified Qualified Code(s): R10.10 - Upper abdominal pain, unspecified (4) Diabetes type 2, uncontrolled SNOMED Code(s): 10359313, 856832308 Code(s): E11.65 - TYPE 2 DIABETES MELLITUS WITH HYPERGLYCEMIA Status: Acute Current Visit: Yes Qualifiers: Diabetes mellitus complication status: with ophthalmic complications Diabetes mellitus complication detail: with other ophthalmic complication Diabetes mellitus correction insulin use: with correction use Qualified Code(s) : E11.39 - Type 2 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 ; E11.65 - Type 2 diabetes mellitus with hyperglycemia; Z79.4 - correction ( current) use of insulin - Problem List Review Problem List Initiated/Reviewed/Updated: Yes - My Orders Last 24 Hours: My Active Orders 07/13/16 11:18 oxyCODONE 5 - 10 mg PO Q4H PRN 07/13/16 11:19 Convert IV to Saline Lock [OM.PC] Routine 07/13/16 11:20 Up With Assistance [RC] ASDIRECTED 07/13/16 11:22 Cooling Warming Measures [RC] ASDIRECTED Heat Therapy [OM.PC] Routine 07/13/16 11:23 HYDROmorphone [Dilaudid] 0.5 - 1 mg IVPUSH Q2H PRN 07/13/16 11:30 Gabapentin [Neurontin] 300 mg PO BID 07/13/16 13:00 Warfarin [Coumadin] 2.5 mg PO DAILY@1300 07/13/16 15:21 LORazepam [Ativan] 1 mg PO Q6H PRN 07/14/16 08:00 Lidocaine 5% [Lidoderm 5%] 700 mg TOP Q24H 07/14/16 09:30 Carvedilol [Coreg] 12.5 mg PO BIDMEALS 07/14/16 14:00 Acetaminophen [Tylenol Extra Strength] 1,000 mg PO TID 07/14/16 20:00 Remove Patch 0 ea TRDERM Q24H 07/14/16 21:00 Insulin Detemir [Levemir] 45 unit SUBCUT BEDTIME 07/15/16 05:00 BASIC METABOLIC PANEL,BMP [CHEM] Timed INR,PT,PROTHROMBIN TIME [COAG] Timed - Plan Plan:: ASSESSMENT / PLAN: Left cerebellar infarct - CT scan suggestive and this was confirmed with an MRI. Clinically seems a little bit more steady today. Physical therapy evaluation was pending at the time of me seeing him this morning. Physical therapy had been recommending senior care placement for rehabilitation. Blood pressure still elevated. -blood pressure control -continue statin -Aspirin daily -Warfarin -Physical therapy Supratherapeutic INR - level stable and warfarin has been reinitiated. -2.5 mg vitamin K today -INR in the morning Spinal Stensis - worsening back pain recently. X-ray shows mostly lower lumbar arthritis. MRI from [place] revealed lumbar spinal stenosis. -start lidocaine patch -Acetaminophen -Trial of oxycodone -Physical therapy -outpatient followup with Dr. Tyree Whalen, Orthopedic Surgeon Abdominal pain - no pain today. CT scan showed distended gallbladder. Ultrasound did not show definitive evidence for acute cholecystitis. no active abdominal symptoms such as pain, nausea or vomiting. -trial of regular diet -Monitor for pain Diabetes Type 2; poor control - sugars low to mornings in a row. Planning to reduce evening dose. -Insulin; order Levimer 45 units at -Insulin sliding scale coverage; medium coverage Maintenance issues -Nutrition: consistent carbohydrate diet -Ramos catheter not indicated at this time -DVT: SCD, Coumadin Disposition - physical therapy recommending subacute rehabilitation at a senior care, no beds available until Saturday. Primary care provider:Azul Palacio M.D.
[2016-07-14] MEDS: Acetaminophen 500 MG Tab PO SCH ×3 (12:14→21:43)
[2016-07-14] MEDS: Carvedilol 6.25 MG Tab PO SCH (12:56)
[2016-07-14] MEDS: Warfarin 2.5 MG Tab PO SCH (13:27)
[2016-07-14] MEDS: atorvaSTATin 20 MG Tab PO SCH (21:43)
[2016-07-14] MEDS: Insulin Detemir 100 Units/ML 3 ML Pen SUBCUT SCH (21:45)
[2016-07-15] MEDS: oxyCODONE 5 MG Tab PO PRN ×5 (03:51→20:44)
[2016-07-15] MEDS: Pantoprazole 40 MG Tab.CR PO SCH (07:36)
[2016-07-15] MEDS: Lidocaine 5% 700 MG Patch TOP SCH (07:43)
[2016-07-15] MEDS: Acetaminophen 500 MG Tab PO SCH ×4 (07:47→20:39)
[2016-07-15] MEDS: Aspirin 81 MG Tab.EC PO SCH (08:32)
[2016-07-15] MEDS: Spironolactone 25 MG Tab PO SCH (08:32)
[2016-07-15] MEDS: Gabapentin 300 MG Cap PO SCH ×2 (08:32→20:39)
[2016-07-15] MEDS: Carvedilol 12.5 MG Tab PO SCH ×2 (09:09→16:58)
[2016-07-15] MEDS: fentaNYL 12 MCG/HR Transdermal Patch TRDERM SCH (11:53)
--- NOTE | 2016-07-15 12:07 | PCM.PN ---
- General Info Date of Service: 07/15/16 Functional Status: Reports: pain controlled, tolerating diet - Review of Systems General: Denies: weakness Gastrointestinal: Denies: Abdominal pain Musculoskeletal: Reports: other (right 3rd finger pain) Neurological: Reports: tingling (fingertips) Systems Review Comment:: No acute events overnight. Strength seems to be good at this point but he still has some difficulty with his balance. Blood sugar on the low side of normal again this morning. Sugars did run high yesterday afternoon. Continues to endorse a fair amount of lower back pain and is interested in a trial of a long-acting pain medication, at least until he can have his epidural steroid injections. Did run a low-grade temperature again last night but no obvious localizing symptoms. - Patient Data Vitals - most recent: Last Vital Signs Temp 36.5 C 07/15/16 11:59 Pulse 76 07/15/16 11:59 Resp 20 07/15/16 11:59 BP 142/77 H 07/15/16 11:59 Pulse Ox 95 07/15/16 11:59 Weight - most recent: 101.151 kg I&O - last 24 hours: Intake & Output 07/14/16 07/15/16 07/15/16 22:59 06:59 14:59 Intake Total 1080 Output Total 150 Balance -150 1080 Lab Results last 24 hrs: Laboratory Results - last 24 hr 07/15/16 07/15/16 Range/Units 06:03 06:03 PT 39.5 H (9.5-12.0) sec INR 3.58 H (0.80-1.20) Sodium 133 L (140-148) mmol/L Potassium 4.5 (3.6-5.2) mmol/L Chloride 98 L (100-108) mmol/L Carbon Dioxide 29 (21-32) mmol/L Anion Gap 10.5 (5.0-14.0) mmol/L BUN 15 (7-18) mg/dL Creatinine 0.9 (0.8-1.3) mg/dL Est Cr Clr Drug Dosing 88.83 mL/min Estimated GFR (MDRD) > 60 (>60) Glucose 83 (74-106) mg/dL Calcium 8.6 (8.5-10.1) mg/dL Med Orders - Current: Current Medications Acetaminophen (Tylenol Extra Strength) 1,000 mg PO TID [facility] Last Admin: 07/15/16 10:32 Dose: Not Given Albuterol (Proventil Neb Soln) 2.5 mg NEB Q4H PRN PRN Reason: Shortness Of Breath/wheezing Aspirin (Halfprin) 81 mg PO DAILY [facility] Last Admin: 07/15/16 08:32 Dose: 81 mg Atorvastatin Calcium (Lipitor) 40 mg PO BEDTIME [facility] Last Admin: 07/14/16 21:43 Dose: 40 mg Bisacodyl (Dulcolax) 5 mg PO DAILY PRN PRN Reason: Constipation Last Admin: 07/15/16 07:48 Dose: 5 mg Carvedilol (Coreg) 12.5 mg PO BIDMEALS [facility] Last Admin: 07/15/16 09:09 Dose: 12.5 mg Docusate Sodium (Colace) 100 mg PO BID PRN PRN Reason: Constipation Last Admin: 07/15/16 07:48 Dose: 100 mg Fentanyl (Duragesic) 12 mcg TRDERM Q72H [facility] Last Admin: 07/15/16 11:53 Dose: 12 mcg Gabapentin (Neurontin) 300 mg PO BID [facility] Last Admin: 07/15/16 08:32 Dose: 300 mg Hydromorphone HCl (Dilaudid) 0.5 - 1 mg IVPUSH Q2H PRN PRN Reason: Pain Insulin Aspart (Novolog) 0 unit SUBCUT ASDIRECTED [facility] PRN Reason: Protocol Last Admin: 07/14/16 21:46 Dose: 8 units Insulin Detemir (Levemir) 45 unit SUBCUT BEDTIME [facility] Last Admin: 07/14/16 21:45 Dose: 45 units Lorazepam (Ativan) 1 mg PO Q6H PRN PRN Reason: Anxiety Miscellaneous Information (Remove Patch) 0 ea TRDERM Q24H [facility] Last Admin: 07/14/16 21:20 Dose: Not Given Naloxone HCl (Narcan) 0.4 mg IVPUSH Q2M PRN PRN Reason: Respiratory Distress Fentanyl Patch Check 0 each TOP DAILY [facility] Ondansetron HCl (Zofran Odt) 4 mg PO Q6H PRN PRN Reason: Nausea able to take PO Oxycodone HCl (Oxycodone) 5 - 10 mg PO Q4H PRN PRN Reason: Pain Last Admin: 07/15/16 11:49 Dose: 10 mg Pantoprazole Sodium (Protonix) 40 mg PO ACBREAKFAST [facility] Last Admin: 07/15/16 07:36 Dose: 40 mg Ramipril (Altace) 10 mg PO BID [facility] Last Admin: 07/15/16 08:32 Dose: 10 mg Spironolactone (Aldactone) 50 mg PO DAILY [facility] Last Admin: 07/15/16 08:32 Dose: 50 mg Warfarin Sodium (Coumadin) 2.5 mg PO DAILY@1300 [facility] Last Admin: 07/14/16 13:27 Dose: 2.5 mg Zolpidem Tartrate (Ambien) 5 mg PO BEDTIME PRN PRN Reason: Sleep Discontinued Medications Acetaminophen (Tylenol) 650 mg PO Q4H PRN PRN Reason: Pain (Mild 1-3)/fever Last Admin: 07/13/16 22:14 Dose: 650 mg Acetaminophen/Hydrocodone Bitart ([place] 325-5 Mg) 2 tab PO Q4H PRN PRN Reason: Pain (moderate 4-6) Last Admin: 07/13/16 07:29 Dose: 2 tab Atenolol (Tenormin) 50 mg PO DAILY [facility] Last Admin: 07/12/16 15:06 Dose: Not Given Carvedilol (Coreg) 6.25 mg PO BID [facility] Last Admin: 07/14/16 12:56 Dose: Not Given Hydromorphone HCl (Dilaudid) 0.5 mg IVPUSH ONETIME ONE Stop: 07/11/16 21:00 Last Admin: 07/11/16 21:05 Dose: 0.5 mg Hydromorphone HCl (Dilaudid) 1 mg IVPUSH ONETIME ONE Stop: 07/11/16 22:34 Last Admin: 07/11/16 22:42 Dose: 1 mg Hydromorphone HCl (Dilaudid) 1 mg IVPUSH Q2H PRN PRN Reason: Pain Last Admin: 07/13/16 02:18 Dose: 1 mg Sodium Chloride (Normal Saline) 1,000 mls @ 999 mls/hr IV ASDIRECTED [facility] Last Admin: 07/11/16 18:58 Dose: 999 mls/hr Sodium Chloride (Normal Saline) 1,000 mls @ 125 mls/hr IV ASDIRECTED [facility] Last Admin: 07/13/16 10:51 Dose: 125 mls/hr Insulin Detemir (Levemir) 50 unit SUBCUT BEDTIME [facility] Last Admin: 07/13/16 22:03 Dose: 50 units Lidocaine (Lidoderm 5%) 700 mg TOP Q24H [facility] Last Admin: 07/13/16 12:31 Dose: 700 mg Lidocaine (Lidoderm 5%) 700 mg TOP Q24H [facility] Last Admin: 07/15/16 07:43 Dose: 700 mg Lorazepam (Ativan) 1 mg IV Q6H PRN PRN Reason: Nausea/Vomiting Last Admin: 07/12/16 23:18 Dose: 1 mg Miscellaneous Information (Remove Patch) 0 ea TRDERM Q24H [facility] Last Admin: 07/13/16 23:00 Dose: Not Given Ondansetron HCl (Zofran) 4 mg IVPUSH ONETIME ONE Stop: 07/11/16 21:01 Last Admin: 07/11/16 21:05 Dose: 4 mg Pantoprazole Sodium (Protonix Iv) 40 mg IVPUSH DAILY [facility] Last Admin: 07/12/16 09:14 Dose: 40 mg Pantoprazole Sodium (Protonix Iv) 40 mg IVPUSH DAILY [facility] Phytonadione (Aquamephyton) 2.5 mg PO ONETIME ONE Stop: 07/12/16 09:46 Last Admin: 07/12/16 09:57 Dose: 2.5 mg Sodium Chloride (Saline Flush) 10 ml FLUSH ASDIRECTED PRN PRN Reason: Keep Vein Open Last Admin: 07/11/16 18:58 Dose: 10 ml - Exam Quality Assessment: No: supplemental oxygen General: alert, oriented, cooperative, no acute distress Neck: supple Lungs: Clear to auscultation, Normal respiratory effort Cardiovascular: regular rate, regular rhythm Abdomen: soft, no tenderness, no distension Extremities: no edema, normal pulses Skin: warm, dry Neurological: no new focal deficit Psy/Mental Status: alert, normal affect - Problem List & Annotations (1) Cerebellar infarct SNOMED Code(s): 98142696 Code(s): I63.9 - CEREBRAL INFARCTION, UNSPECIFIED Status: Acute Priority : High Current Visit: Yes (2) Spinal stenosis SNOMED Code(s): 87564479 Code(s): M48.00 - SPINAL STENOSIS, SITE UNSPECIFIED Status: Acute Priority: High Current Visit: Yes Qualifiers: Spinal region: lumbar Qualified Code(s): M48.06 - Spinal stenosis, lumbar region (3) Abdominal pain SNOMED Code(s): 61475565 Code(s): R10.9 - UNSPECIFIED ABDOMINAL PAIN Status: Acute Current Visit: Yes Qualifiers: Abdominal location: upper abdomen, unspecified Qualified Code(s): R10.10 - Upper abdominal pain, unspecified (4) Diabetes type 2, uncontrolled SNOMED Code(s): 47240919, 051857422 Code(s): E11.65 - TYPE 2 DIABETES MELLITUS WITH HYPERGLYCEMIA Status: Acute Current Visit: Yes Qualifiers: Diabetes mellitus complication status: with ophthalmic complications Diabetes mellitus complication detail: with other ophthalmic complication Diabetes mellitus termite treater insulin use: with fdc use Qualified Code(s) : E11.39 - Type 2 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 ; E11.65 - Type 2 diabetes mellitus with hyperglycemia; Z79.4 - [facility] ( current) use of insulin - Problem List Review Problem List Initiated/Reviewed/Updated: Yes - My Orders Last 24 Hours: My Active Orders 07/14/16 14:00 Acetaminophen [Tylenol Extra Strength] 1,000 mg PO TID 07/14/16 20:00 Remove Patch 0 ea TRDERM Q24H 07/14/16 21:00 Insulin Detemir [Levemir] 45 unit SUBCUT BEDTIME 07/15/16 12:00 fentaNYL [Duragesic] 12 mcg TRDERM Q72H 07/16/16 05:00 INR,PT,PROTHROMBIN TIME [COAG] Timed 07/16/16 09:00 Non-Formulary Medication [NF Drug] 0 each TOP DAILY - Plan Plan:: ASSESSMENT / PLAN: Left cerebellar infarct - CT scan suggestive and this was confirmed with an MRI. Strength good balance remains an issue. Physical therapy had been recommending prison placement for rehabilitation. Blood pressure still elevated despite medication adjustments. -blood pressure control -continue statin -Aspirin daily -Warfarin -Physical therapy Supratherapeutic INR - level slightly therapeutic and warfarin will be held today. - Hold warfarin today -INR in the morning Spinal Stensis - worsening back pain recently. X-ray shows mostly lower lumbar arthritis. MRI from [place] revealed lumbar spinal stenosis. Lidocaine patch was not effective. -Trial of fentanyl patch -Continue oxycodone -Scheduled acetaminophen -Physical therapy -outpatient followup with Dr. Tyree Whalen, Orthopedic Surgeon Abdominal pain - no pain for the past few days.. CT scan showed distended gallbladder. Ultrasound did not show definitive evidence for acute cholecystitis. no active abdominal symptoms such as pain, nausea or vomiting. -Diabetic diet -Monitor for pain Diabetes Type 2; poor control - sugars running low in the morning but high in the afternoon. May benefit from mealtime insulin. -Insulin; order Levimer 45 units at hs -Insulin sliding scale coverage; medium coverage Maintenance issues -Nutrition: consistent carbohydrate diet -Ramos catheter not indicated at this time -DVT: SCD, Coumadin Disposition - physical therapy recommending subacute rehabilitation at a prison, no beds available until Saturday. Primary care provider:Azul Palacio M.D.
[2016-07-15] MEDS ORDERED: Polyethylene Glycol 3350 Powder 17 GM Packet PO PRN (13:10)
[2016-07-15] MEDS: Insulin Aspart 100 Units/ML 3 ML Pen SUBCUT SCH ×2 (17:03→21:03)
[2016-07-15] MEDS ORDERED: Insulin Aspart 100 Units/ML 3 ML Pen SUBCUT ONE (17:15)
[2016-07-15] MEDS: atorvaSTATin 20 MG Tab PO SCH (20:39)
[2016-07-15] MEDS: Insulin Detemir 100 Units/ML 3 ML Pen SUBCUT SCH (21:02)
[2016-07-16] MEDS: oxyCODONE 5 MG Tab PO PRN ×4 (04:20→17:47)
[2016-07-16] MEDS: Pantoprazole 40 MG Tab.CR PO SCH (07:30)
[2016-07-16] MEDS: Carvedilol 12.5 MG Tab PO SCH ×2 (07:31→17:34)
[2016-07-16] MEDS: Spironolactone 25 MG Tab PO SCH (08:24)
[2016-07-16] MEDS: Aspirin 81 MG Tab.EC PO SCH (08:25)
[2016-07-16] MEDS: Gabapentin 300 MG Cap PO SCH ×2 (08:25→20:10)
[2016-07-16] MEDS: Acetaminophen 500 MG Tab PO SCH ×3 (08:26→20:09)
[2016-07-16] MEDS: FENTANYL PATCH CHECK TOP SCH (08:32)
[2016-07-16] MEDS: Insulin Aspart 100 Units/ML 3 ML Pen SUBCUT SCH ×3 (12:22→21:43)
[2016-07-16] MEDS ORDERED: Insulin Detemir 100 Units/ML 3 ML Pen SUBCUT SCH (14:15)
--- NOTE | 2016-07-16 14:20 | PCM.PN ---
- General Info Date of Service: 07/16/16 - Review of Systems General: Reports: weakness. Denies: fever, chills Pulmonary: Reports: no symptoms Cardiovascular: Reports: no symptoms Gastrointestinal: Reports: No symptoms Neurological: Reports: confusion, difficulty walking, other (discoordination) Systems Review Comment:: Mr. 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 He has been able to walk with use of walker but has significant difficulty with transfers and transitions. experienced hypoglycemia this morning with a glucose of 59 and some associated confusion. He had a second episode of confusion associated with diaphoresis later in the morning, at that time his glucose level was 177. Family has noted some intermittent confusion since his CVA. - Patient Data Vitals - most recent: Last Vital Signs Temp 97.6 F 07/16/16 11:11 Pulse 66 07/16/16 11:11 Resp 17 07/16/16 11:11 BP 141/68 H 07/16/16 11:11 Pulse Ox 96 07/16/16 11:11 Weight - most recent: 222 lb 15.996 oz I&O - last 24 hours: Intake & Output 07/15/16 07/16/16 07/16/16 22:59 06:59 14:59 Intake Total 720 650 480 Output Total 50 Balance 670 650 480 Lab Results last 24 hrs: Laboratory Results - last 24 hr 07/16/16 Range/Units 05:00 PT 41.0 H (9.5-12.0) sec INR 3.71 H (0.80-1.20) Med Orders - Current: Current Medications Acetaminophen (Tylenol Extra Strength) 1,000 mg PO TID [facility] Last Admin: 07/16/16 08:26 Dose: 1,000 mg Albuterol (Proventil Neb Soln) 2.5 mg NEB Q4H PRN PRN Reason: Shortness Of Breath/wheezing Aspirin (Halfprin) 81 mg PO DAILY [facility] Last Admin: 07/16/16 08:25 Dose: 81 mg Atorvastatin Calcium (Lipitor) 40 mg PO BEDTIME [facility] Last Admin: 07/15/16 20:39 Dose: 40 mg Bisacodyl (Dulcolax) 5 mg PO DAILY PRN PRN Reason: Constipation Last Admin: 07/15/16 07:48 Dose: 5 mg Carvedilol (Coreg) 12.5 mg PO BIDMEALS [facility] Last Admin: 07/16/16 07:31 Dose: 12.5 mg Docusate Sodium (Colace) 100 mg PO BID PRN PRN Reason: Constipation Last Admin: 07/15/16 07:48 Dose: 100 mg Fentanyl (Duragesic) 12 mcg TRDERM Q72H [facility] Last Admin: 07/15/16 11:53 Dose: 12 mcg Gabapentin (Neurontin) 300 mg PO BID [facility] Last Admin: 07/16/16 08:25 Dose: 300 mg Hydromorphone HCl (Dilaudid) 0.5 - 1 mg IVPUSH Q2H PRN PRN Reason: Pain Insulin Aspart (Novolog) 0 unit SUBCUT ASDIRECTED [facility] PRN Reason: Protocol Last Admin: 07/16/16 12:22 Dose: 2 units Insulin Detemir (Levemir) 20 unit SUBCUT BID [facility] Lorazepam (Ativan) 1 mg PO Q6H PRN PRN Reason: Anxiety Miscellaneous Information (Remove Patch) 0 ea TRDERM Q24H [facility] Last Admin: 07/15/16 20:36 Dose: Not Given Naloxone HCl (Narcan) 0.4 mg IVPUSH Q2M PRN PRN Reason: Respiratory Distress Fentanyl Patch Check 0 each TOP DAILY [facility] Last Admin: 07/16/16 08:32 Dose: Not Given Ondansetron HCl (Zofran Odt) 4 mg PO Q6H PRN PRN Reason: Nausea able to take PO Oxycodone HCl (Oxycodone) 5 - 10 mg PO Q4H PRN PRN Reason: Pain Last Admin: 07/16/16 12:25 Dose: 10 mg Pantoprazole Sodium (Protonix) 40 mg PO ACBREAKFAST [facility] Last Admin: 07/16/16 07:30 Dose: 40 mg Polyethylene Glycol (Miralax) 17 gm PO DAILY PRN PRN Reason: Constipation Last Admin: 07/15/16 14:35 Dose: 17 gm Ramipril (Altace) 10 mg PO BID [facility] Last Admin: 07/16/16 08:25 Dose: 10 mg Spironolactone (Aldactone) 50 mg PO DAILY [facility] Last Admin: 07/16/16 08:24 Dose: 50 mg Warfarin Sodium (Coumadin) 2.5 mg PO DAILY@1300 [facility] Last Admin: 07/14/16 13:27 Dose: 2.5 mg Zolpidem Tartrate (Ambien) 5 mg PO BEDTIME PRN PRN Reason: Sleep Discontinued Medications Acetaminophen (Tylenol) 650 mg PO Q4H PRN PRN Reason: Pain (Mild 1-3)/fever Last Admin: 07/13/16 22:14 Dose: 650 mg Acetaminophen/Hydrocodone Bitart ([place] 325-5 Mg) 2 tab PO Q4H PRN PRN Reason: Pain (moderate 4-6) Last Admin: 07/13/16 07:29 Dose: 2 tab Atenolol (Tenormin) 50 mg PO DAILY [facility] Last Admin: 07/12/16 15:06 Dose: Not Given Carvedilol (Coreg) 6.25 mg PO BID [facility] Last Admin: 07/14/16 12:56 Dose: Not Given Hydromorphone HCl (Dilaudid) 0.5 mg IVPUSH ONETIME ONE Stop: 07/11/16 21:00 Last Admin: 07/11/16 21:05 Dose: 0.5 mg Hydromorphone HCl (Dilaudid) 1 mg IVPUSH ONETIME ONE Stop: 07/11/16 22:34 Last Admin: 07/11/16 22:42 Dose: 1 mg Hydromorphone HCl (Dilaudid) 1 mg IVPUSH Q2H PRN PRN Reason: Pain Last Admin: 07/13/16 02:18 Dose: 1 mg Sodium Chloride (Normal Saline) 1,000 mls @ 999 mls/hr IV ASDIRECTED [facility] Last Admin: 07/11/16 18:58 Dose: 999 mls/hr Sodium Chloride (Normal Saline) 1,000 mls @ 125 mls/hr IV ASDIRECTED [facility] Last Admin: 07/13/16 10:51 Dose: 125 mls/hr Insulin Aspart (Novolog) 10 unit SUBCUT ONETIME ONE Stop: 07/15/16 17:16 Last Admin: 07/15/16 17:51 Dose: Not Given Insulin Detemir (Levemir) 50 unit SUBCUT BEDTIME [facility] Last Admin: 07/13/16 22:03 Dose: 50 units Insulin Detemir (Levemir) 45 unit SUBCUT BEDTIME [facility] Last Admin: 07/15/16 21:02 Dose: 45 units Insulin Detemir (Levemir) 30 unit SUBCUT BEDTIME [facility] Lidocaine (Lidoderm 5%) 700 mg TOP Q24H [facility] Last Admin: 07/13/16 12:31 Dose: 700 mg Lidocaine (Lidoderm 5%) 700 mg TOP Q24H [facility] Last Admin: 07/15/16 07:43 Dose: 700 mg Lorazepam (Ativan) 1 mg IV Q6H PRN PRN Reason: Nausea/Vomiting Last Admin: 07/12/16 23:18 Dose: 1 mg Miscellaneous Information (Remove Patch) 0 ea TRDERM Q24H [facility] Last Admin: 07/13/16 23:00 Dose: Not Given Ondansetron HCl (Zofran) 4 mg IVPUSH ONETIME ONE Stop: 07/11/16 21:01 Last Admin: 07/11/16 21:05 Dose: 4 mg Pantoprazole Sodium (Protonix Iv) 40 mg IVPUSH DAILY [facility] Last Admin: 07/12/16 09:14 Dose: 40 mg Pantoprazole Sodium (Protonix Iv) 40 mg IVPUSH DAILY [facility] Phytonadione (Aquamephyton) 2.5 mg PO ONETIME ONE Stop: 07/12/16 09:46 Last Admin: 07/12/16 09:57 Dose: 2.5 mg Sodium Chloride (Saline Flush) 10 ml FLUSH ASDIRECTED PRN PRN Reason: Keep Vein Open Last Admin: 07/11/16 18:58 Dose: 10 ml - Exam General: alert, cooperative, no acute distress Lungs: Clear to auscultation, Normal respiratory effort, Decreased breath sounds Cardiovascular: regular rate, regular rhythm, no murmurs Abdomen: bowel sounds present, soft, no tenderness, no distension Extremities: no edema Skin: warm, dry, intact Neurological: no new focal deficit, normal speech, normal tone, strength equal bilateral, sensation intact - Problem List Review Problem List Initiated/Reviewed/Updated: Yes - My Orders Last 24 Hours: My Active Orders 07/16/16 10:22 GLUCOSE POC LAB TO COLLECT [POC] Stat 07/16/16 21:00 Insulin Detemir [Levemir] 20 unit SUBCUT BID 07/17/16 05:00 BASIC METABOLIC PANEL,BMP [CHEM] Timed CBC WITH AUTO DIFF [HEME] Timed INR,PT,PROTHROMBIN TIME [COAG] Timed - Plan Plan:: ASSESSMENT / PLAN: Left cerebellar infarct - CT scan suggestive and this was confirmed with an MRI. Strength good balance remains an issue. Physical therapy had been recommending fdc placement for rehabilitation. Blood pressure still elevated despite medication adjustments. -blood pressure control -continue statin -Aspirin daily -Warfarin -Physical therapy Supratherapeutic INR - level slightly therapeutic and warfarin will be held today. - Hold warfarin today -INR in the morning Spinal Stenosis - worsening back pain recently. X-ray shows mostly lower lumbar arthritis. MRI from [place] revealed lumbar spinal stenosis. Lidocaine patch was not effective. -Trial of fentanyl patch -Continue oxycodone -Scheduled acetaminophen -Physical therapy -outpatient followup with Dr. Tyree Whalen, Orthopedic Surgeon Abdominal pain - resolved -Diabetic diet -Monitor for pain Diabetes Type 2; poor control - sugars running low in the morning but high in the afternoon. -Insulin; change oligomeric to 20 units in the morning and 20 units in the evening -Insulin sliding scale coverage; medium coverage Maintenance issues -Nutrition: consistent carbohydrate diet -Ramos catheter not indicated at this time -DVT: SCD, Coumadin Disposition - physical therapy recommending subacute rehabilitation at a fdc, no beds available until Saturday. Primary care provider:Azul Palacio
[2016-07-16] MEDS: HYDROmorphone 2 MG Tab PO PRN (20:07)
[2016-07-16] MEDS: atorvaSTATin 20 MG Tab PO SCH (20:10)
[2016-07-16] MEDS: Insulin Detemir 100 Units/ML 3 ML Pen SUBCUT SCH (21:42)
[2016-07-17] MEDS: HYDROmorphone 2 MG Tab PO PRN ×5 (01:04→21:38)
[2016-07-17] MEDS: Pantoprazole 40 MG Tab.CR PO SCH (07:13)
[2016-07-17] MEDS: Carvedilol 12.5 MG Tab PO SCH ×2 (07:14→17:12)
[2016-07-17] MEDS: Gabapentin 300 MG Cap PO SCH ×2 (08:21→21:34)
[2016-07-17] MEDS: Spironolactone 25 MG Tab PO SCH (08:21)
[2016-07-17] MEDS: Acetaminophen 500 MG Tab PO SCH ×3 (08:21→21:34)
[2016-07-17] MEDS: Aspirin 81 MG Tab.EC PO SCH (08:21)
[2016-07-17] MEDS: FENTANYL PATCH CHECK TOP SCH (08:33)
[2016-07-17] MEDS: Insulin Detemir 100 Units/ML 3 ML Pen SUBCUT SCH ×2 (08:36→21:32)
[2016-07-17] MEDS: Warfarin 2.5 MG Tab PO SCH (13:37)
--- NOTE | 2016-07-17 14:57 | PCM.PN ---
- General Info Date of Service: 07/17/16 Functional Status: Reports: pain controlled - Review of Systems General: Reports: weakness Pulmonary: Reports: no symptoms Cardiovascular: Reports: no symptoms Gastrointestinal: Reports: No symptoms Musculoskeletal: Reports: back pain Systems Review Comment:: This patient appears to be somewhat improved today, reports that his back pain is under better control. Vital signs have been stable and he has remained afebrile. Sodium level is lower than it had been at previous baseline likely secondary to mild fluid overload. - Patient Data Vitals - most recent: Last Vital Signs Temp 99.1 F 07/17/16 14:21 Pulse 76 07/17/16 14:21 Resp 18 07/17/16 14:21 BP 110/87 07/17/16 14:21 Pulse Ox 94 L 07/17/16 14:21 Weight - most recent: 222 lb 15.996 oz I&O - last 24 hours: Intake & Output 07/16/16 07/17/16 07/17/16 22:59 06:59 14:59 Intake Total 680 600 720 Output Total 300 Balance 680 300 720 Lab Results last 24 hrs: Laboratory Results - last 24 hr 07/17/16 07/17/16 07/17/16 Range/Units 05:00 05:00 05:00 WBC 11.2 H (4.5-11.0) K/uL RBC 3.35 L (4.30-5.90) M/uL Hgb 9.8 L (12.0-15.0) g/dL Hct 29.8 L (40.0-54.0) % MCV 89 (80-98) fL MCH 29 (27-31) pg MCHC 33 (32-36) % Plt Count 297 (150-400) K/uL Neut % (Auto) 75 H (36-66) % Lymph % (Auto) 14 L (24-44) % Todd % (Auto) 9 H (2-6) % Eos % (Auto) 2 (2-4) % Baso % (Auto) 0 (0-1) % PT 32.1 H (9.5-12.0) sec INR 2.93 H (0.80-1.20) Sodium 128 L (140-148) mmol/L Potassium 4.8 (3.6-5.2) mmol/L Chloride 95 L (100-108) mmol/L Carbon Dioxide 28 (21-32) mmol/L Anion Gap 9.8 (5.0-14.0) mmol/L BUN 16 (7-18) mg/dL Creatinine 1.0 (0.8-1.3) mg/dL Est Cr Clr Drug Dosing 79.95 mL/min Estimated GFR (MDRD) > 60 (>60) Glucose 134 H (74-106) mg/dL Calcium 8.5 (8.5-10.1) mg/dL Med Orders - Current: Current Medications Acetaminophen (Tylenol Extra Strength) 1,000 mg PO TID [facility] Last Admin: 07/17/16 13:38 Dose: 1,000 mg Albuterol (Proventil Neb Soln) 2.5 mg NEB Q4H PRN PRN Reason: Shortness Of Breath/wheezing Aspirin (Halfprin) 81 mg PO DAILY [facility] Last Admin: 07/17/16 08:21 Dose: 81 mg Atorvastatin Calcium (Lipitor) 40 mg PO BEDTIME [facility] Last Admin: 07/16/16 20:10 Dose: 40 mg Bisacodyl (Dulcolax) 5 mg PO DAILY PRN PRN Reason: Constipation Last Admin: 07/15/16 07:48 Dose: 5 mg Carvedilol (Coreg) 12.5 mg PO BIDMEALS [facility] Last Admin: 07/17/16 07:14 Dose: 12.5 mg Docusate Sodium (Colace) 100 mg PO BID PRN PRN Reason: Constipation Last Admin: 07/15/16 07:48 Dose: 100 mg Fentanyl (Duragesic) 12 mcg TRDERM Q72H [facility] Last Admin: 07/15/16 11:53 Dose: 12 mcg Furosemide (Lasix) 40 mg IVPUSH NOW ONE Stop: 07/17/16 14:53 Gabapentin (Neurontin) 300 mg PO BID [facility] Last Admin: 07/17/16 08:21 Dose: 300 mg Hydromorphone HCl (Dilaudid) 2 - 4 mg PO Q3H PRN PRN Reason: Pain Last Admin: 07/17/16 13:37 Dose: 4 mg Insulin Aspart (Novolog) 0 unit SUBCUT ASDIRECTED [facility] PRN Reason: Protocol Last Admin: 07/16/16 21:43 Dose: 6 units Insulin Detemir (Levemir) 20 unit SUBCUT BID [facility] Last Admin: 07/17/16 08:36 Dose: 20 units Lorazepam (Ativan) 1 mg PO Q6H PRN PRN Reason: Anxiety Miscellaneous Information (Remove Patch) 0 ea TRDERM Q24H [facility] Last Admin: 07/16/16 20:09 Dose: Not Given Naloxone HCl (Narcan) 0.4 mg IVPUSH Q2M PRN PRN Reason: Respiratory Distress Fentanyl Patch Check 0 each TOP DAILY [facility] Last Admin: 07/17/16 08:33 Dose: Not Given Ondansetron HCl (Zofran Odt) 4 mg PO Q6H PRN PRN Reason: Nausea able to take PO Pantoprazole Sodium (Protonix) 40 mg PO ACBREAKFAST [facility] Last Admin: 07/17/16 07:13 Dose: 40 mg Polyethylene Glycol (Miralax) 17 gm PO DAILY PRN PRN Reason: Constipation Last Admin: 07/15/16 14:35 Dose: 17 gm Ramipril (Altace) 10 mg PO BID [facility] Last Admin: 07/17/16 08:22 Dose: 10 mg Spironolactone (Aldactone) 50 mg PO DAILY [facility] Last Admin: 07/17/16 08:21 Dose: 50 mg Warfarin Sodium (Coumadin) 2.5 mg PO DAILY@1300 [facility] Last Admin: 07/17/16 13:37 Dose: 2.5 mg Zolpidem Tartrate (Ambien) 5 mg PO BEDTIME PRN PRN Reason: Sleep Discontinued Medications Acetaminophen (Tylenol) 650 mg PO Q4H PRN PRN Reason: Pain (Mild 1-3)/fever Last Admin: 07/13/16 22:14 Dose: 650 mg Acetaminophen/Hydrocodone Bitart ([place] 325-5 Mg) 2 tab PO Q4H PRN PRN Reason: Pain (moderate 4-6) Last Admin: 07/13/16 07:29 Dose: 2 tab Atenolol (Tenormin) 50 mg PO DAILY [facility] Last Admin: 07/12/16 15:06 Dose: Not Given Carvedilol (Coreg) 6.25 mg PO BID [facility] Last Admin: 07/14/16 12:56 Dose: Not Given Hydromorphone HCl (Dilaudid) 0.5 mg IVPUSH ONETIME ONE Stop: 07/11/16 21:00 Last Admin: 07/11/16 21:05 Dose: 0.5 mg Hydromorphone HCl (Dilaudid) 1 mg IVPUSH ONETIME ONE Stop: 07/11/16 22:34 Last Admin: 07/11/16 22:42 Dose: 1 mg Hydromorphone HCl (Dilaudid) 1 mg IVPUSH Q2H PRN PRN Reason: Pain Last Admin: 07/13/16 02:18 Dose: 1 mg Hydromorphone HCl (Dilaudid) 0.5 - 1 mg IVPUSH Q2H PRN PRN Reason: Pain Sodium Chloride (Normal Saline) 1,000 mls @ 999 mls/hr IV ASDIRECTED [facility] Last Admin: 07/11/16 18:58 Dose: 999 mls/hr Sodium Chloride (Normal Saline) 1,000 mls @ 125 mls/hr IV ASDIRECTED [facility] Last Admin: 07/13/16 10:51 Dose: 125 mls/hr Insulin Aspart (Novolog) 10 unit SUBCUT ONETIME ONE Stop: 07/15/16 17:16 Last Admin: 07/15/16 17:51 Dose: Not Given Insulin Detemir (Levemir) 50 unit SUBCUT BEDTIME [facility] Last Admin: 07/13/16 22:03 Dose: 50 units Insulin Detemir (Levemir) 45 unit SUBCUT BEDTIME [facility] Last Admin: 07/15/16 21:02 Dose: 45 units Insulin Detemir (Levemir) 30 unit SUBCUT BEDTIME [facility] Lidocaine (Lidoderm 5%) 700 mg TOP Q24H [facility] Last Admin: 07/13/16 12:31 Dose: 700 mg Lidocaine (Lidoderm 5%) 700 mg TOP Q24H [facility] Last Admin: 07/15/16 07:43 Dose: 700 mg Lorazepam (Ativan) 1 mg IV Q6H PRN PRN Reason: Nausea/Vomiting Last Admin: 07/12/16 23:18 Dose: 1 mg Miscellaneous Information (Remove Patch) 0 ea TRDERM Q24H [facility] Last Admin: 07/13/16 23:00 Dose: Not Given Ondansetron HCl (Zofran) 4 mg IVPUSH ONETIME ONE Stop: 07/11/16 21:01 Last Admin: 07/11/16 21:05 Dose: 4 mg Oxycodone HCl (Oxycodone) 5 - 10 mg PO Q4H PRN PRN Reason: Pain Last Admin: 07/16/16 17:47 Dose: 10 mg Pantoprazole Sodium (Protonix Iv) 40 mg IVPUSH DAILY [facility] Last Admin: 07/12/16 09:14 Dose: 40 mg Pantoprazole Sodium (Protonix Iv) 40 mg IVPUSH DAILY [facility] Phytonadione (Aquamephyton) 2.5 mg PO ONETIME ONE Stop: 07/12/16 09:46 Last Admin: 07/12/16 09:57 Dose: 2.5 mg Sodium Chloride (Saline Flush) 10 ml FLUSH ASDIRECTED PRN PRN Reason: Keep Vein Open Last Admin: 07/11/16 18:58 Dose: 10 ml - Exam Quality Assessment: DVT prophylaxis General: alert, cooperative, no acute distress Lungs: Clear to auscultation, Normal respiratory effort Cardiovascular: regular rate, regular rhythm, no murmurs Abdomen: bowel sounds present, soft, no tenderness, no distension Extremities: no edema, edema Skin: warm, dry, intact - Problem List Review Problem List Initiated/Reviewed/Updated: Yes - My Orders Last 24 Hours: My Active Orders 07/16/16 19:49 HYDROmorphone [Dilaudid] 2 - 4 mg PO Q3H PRN 07/16/16 21:00 Insulin Detemir [Levemir] 20 unit SUBCUT BID 07/17/16 14:52 Furosemide [Lasix] 40 mg IVPUSH NOW ONE 07/18/16 05:00 BASIC METABOLIC PANEL,BMP [CHEM] Timed INR,PT,PROTHROMBIN TIME [COAG] Timed 07/18/16 08:00 Cholescintigraphy w Pharm Int [NM] Urgent - Plan Plan:: ASSESSMENT / PLAN: Left cerebellar infarct - CT scan suggestive and this was confirmed with an MRI. Strength good balance remains an issue. Physical therapy had been recommending jail placement for rehabilitation. Blood pressure still elevated despite medication adjustments. -blood pressure control -continue statin -Aspirin daily -Warfarin -Physical therapy Hyponatremia-likely secondary to increase fluids given during hospitalization -Furosemide 40 mg IV now -Recheck sodium in the a.m. Supratherapeutic INR - INR within the desired range today -Resume usual dose of warfarin -INR in the morning Spinal Stenosis - worsening back pain recently. X-ray shows mostly lower lumbar arthritis. MRI from [place] revealed lumbar spinal stenosis. Lidocaine patch was not effective. -Trial of fentanyl patch -Continue oxycodone -Scheduled acetaminophen -Physical therapy -CCK stimulated HIDA scan in a.m. to rule out gallbladder disease as a potential cause of back pain -outpatient followup with Dr. Tyree Whalen, Orthopedic Surgeon Abdominal pain - resolved -Diabetic diet -Monitor for pain Diabetes Type 2; poor control -glucose management improved with current regimen -Insulin; change Levemir to 20 units in the morning and 20 units in the evening -Insulin sliding scale coverage; medium coverage Maintenance issues -Nutrition: consistent carbohydrate diet -Ramos catheter not indicated at this time -DVT: SCD, Coumadin Disposition - physical therapy recommending subacute rehabilitation at a jail, no beds available until Saturday. Primary care provider:Azul Palacio
[2016-07-17] MEDS ORDERED: Furosemide 40 MG/4 ML VIAL IVPUSH ONE (15:15)
[2016-07-17] MEDS: Insulin Aspart 100 Units/ML 3 ML Pen SUBCUT SCH (21:31)
[2016-07-17] MEDS: atorvaSTATin 20 MG Tab PO SCH (21:34)
[2016-07-18] MEDS: HYDROmorphone 2 MG Tab PO PRN ×5 (03:34→19:53)
[2016-07-18] MEDS ORDERED: Furosemide 40 MG/4 ML VIAL IVPUSH ONE (08:00)
[2016-07-18] MEDS: Aspirin 81 MG Tab.EC PO SCH (09:24)
[2016-07-18] MEDS: Spironolactone 25 MG Tab PO SCH (09:24)
[2016-07-18] MEDS: Gabapentin 300 MG Cap PO SCH ×2 (09:24→21:55)
[2016-07-18] MEDS: Pantoprazole 40 MG Tab.CR PO SCH (09:24)
[2016-07-18] MEDS: Carvedilol 12.5 MG Tab PO SCH ×2 (09:24→18:08)
[2016-07-18] MEDS: Acetaminophen 500 MG Tab PO SCH ×3 (09:25→21:55)
[2016-07-18] MEDS: FENTANYL PATCH CHECK TOP SCH (09:26)
--- NOTE | 2016-07-18 11:45 | NM ---
Nuclear medicine HIDA scan. History: Back pain and nausea. Technique: The patient received intravenously 5.05 millicuries of technetium 99 Choletec followed by static imaging of the upper abdomen. Subsequently, the patient received 2.02 micrograms of CCK foll owed by the gallbladder ejection fraction calculation. The patient complained of back pain and nausea following CCK administration. Findings: There is uniform distribution of the radiopharmaceutical throughout the liver. The gallbla dder is visualized at 25 minutes into the exam. There is emptying through the common bile duct into the small bowel. The gallbladder ejection fraction is significantly decreased equal to 10.6%. Iva l is generally considered greater than 35%. Impression: 1. Abnormal low ejection fraction with reproduction of the presenting symptoms. The findings suggest underlying biliary dyskinesia. 2. Normal visualization of the gallbladder.
[2016-07-18] MEDS ORDERED: Phytonadione 10 MG in Sodium Chloride 0.9% 50 ML IV ONE (13:30)
[2016-07-18] MEDS: fentaNYL 12 MCG/HR Transdermal Patch TRDERM SCH (14:01)
[2016-07-18] MEDS: Warfarin 2.5 MG Tab PO SCH (14:01)
[2016-07-18] MEDS: Insulin Detemir 100 Units/ML 3 ML Pen SUBCUT SCH ×2 (14:05→21:54)
--- NOTE | 2016-07-18 16:09 | PCM.PN ---
- General Info Date of Service: 07/18/16 Functional Status: Reports: pain controlled - Review of Systems General: Reports: weakness. Denies: fever, chills Pulmonary: Reports: no symptoms Cardiovascular: Reports: no symptoms Gastrointestinal: Reports: Abdominal pain. Denies: Nausea, Vomiting Musculoskeletal: Reports: back pain Systems Review Comment:: This patient has been fairly stable since yesterday, CCK stimulated HIDA scan reproduced symptoms that he is had with eating and showed significantly decreased ejection fraction consistent with chronic cholecystitis. Vital signs have been stable and he has remained afebrile. He is been seen and evaluated by Dr. Whalen with the plan for laparoscopic cholecystectomy tomorrow. Anticoagulation will be reversed today with vitamin K. - Patient Data Vitals - most recent: Last Vital Signs Temp 97.9 F 07/18/16 14:33 Pulse 84 07/18/16 14:33 Resp 16 07/18/16 14:33 BP 144/76 H 07/18/16 14:33 Pulse Ox 98 07/18/16 14:33 Weight - most recent: 222 lb 15.996 oz I&O - last 24 hours: Intake & Output 07/18/16 07/18/16 07/18/16 06:59 14:59 22:59 Intake Total 540 Output Total 275 100 Balance -275 440 Lab Results last 24 hrs: Laboratory Results - last 24 hr 07/18/16 07/18/16 Range/Units 05:00 05:00 PT 32.0 H (9.5-12.0) sec INR 2.92 H (0.80-1.20) Sodium 129 L (140-148) mmol/L Potassium 4.1 (3.6-5.2) mmol/L Chloride 94 L (100-108) mmol/L Carbon Dioxide 29 (21-32) mmol/L Anion Gap 10.1 (5.0-14.0) mmol/L BUN 16 (7-18) mg/dL Creatinine 1.0 (0.8-1.3) mg/dL Est Cr Clr Drug Dosing 79.95 mL/min Estimated GFR (MDRD) > 60 (>60) Glucose 108 H (74-106) mg/dL Calcium 8.5 (8.5-10.1) mg/dL Med Orders - Current: Current Medications Acetaminophen (Tylenol Extra Strength) 1,000 mg PO TID [facility] Last Admin: 07/18/16 14:01 Dose: 1,000 mg Albuterol (Proventil Neb Soln) 2.5 mg NEB Q4H PRN PRN Reason: Shortness Of Breath/wheezing Aspirin (Halfprin) 81 mg PO DAILY [facility] Last Admin: 07/18/16 09:24 Dose: 81 mg Atorvastatin Calcium (Lipitor) 40 mg PO BEDTIME [facility] Last Admin: 07/17/16 21:34 Dose: 40 mg Bisacodyl (Dulcolax) 5 mg PO DAILY PRN PRN Reason: Constipation Last Admin: 07/15/16 07:48 Dose: 5 mg Carvedilol (Coreg) 12.5 mg PO BIDMEALS [facility] Last Admin: 07/18/16 09:24 Dose: 12.5 mg Docusate Sodium (Colace) 100 mg PO BID PRN PRN Reason: Constipation Last Admin: 07/15/16 07:48 Dose: 100 mg Fentanyl (Duragesic) 12 mcg TRDERM Q72H [facility] Last Admin: 07/18/16 14:01 Dose: 12 mcg Gabapentin (Neurontin) 300 mg PO BID [facility] Last Admin: 07/18/16 09:24 Dose: 300 mg Hydromorphone HCl (Dilaudid) 2 - 4 mg PO Q3H PRN PRN Reason: Pain Last Admin: 07/18/16 14:01 Dose: 4 mg Cefoxitin Sodium 2 gm/ Sodium (Chloride) 50 mls @ 100 mls/hr IV ONETIME ONE Stop: 07/19/16 10:29 Potassium Chloride/Sodium Chloride (Normal Saline With 20 Meq Kcl) 1,000 mls @ 100 mls/hr IV ASDIRECTED [facility] Insulin Aspart (Novolog) 0 unit SUBCUT ASDIRECTED [facility] PRN Reason: Protocol Last Admin: 07/17/16 21:31 Dose: 2 units Insulin Detemir (Levemir) 20 unit SUBCUT BID [facility] Last Admin: 07/18/16 14:05 Dose: 20 units Lorazepam (Ativan) 1 mg PO Q6H PRN PRN Reason: Anxiety Miscellaneous Information (Remove Patch) 0 ea TRDERM Q24H [facility] Last Admin: 07/17/16 21:33 Dose: Not Given Naloxone HCl (Narcan) 0.4 mg IVPUSH Q2M PRN PRN Reason: Respiratory Distress Fentanyl Patch Check 0 each TOP DAILY [facility] Last Admin: 07/18/16 09:26 Dose: Not Given Ondansetron HCl (Zofran Odt) 4 mg PO Q6H PRN PRN Reason: Nausea able to take PO Pantoprazole Sodium (Protonix) 40 mg PO ACBREAKFAST [facility] Last Admin: 07/18/16 09:24 Dose: 40 mg Polyethylene Glycol (Miralax) 17 gm PO DAILY PRN PRN Reason: Constipation Last Admin: 07/15/16 14:35 Dose: 17 gm Ramipril (Altace) 10 mg PO BID [facility] Last Admin: 07/18/16 09:24 Dose: 10 mg Spironolactone (Aldactone) 50 mg PO DAILY [facility] Last Admin: 07/18/16 09:24 Dose: 50 mg Zolpidem Tartrate (Ambien) 5 mg PO BEDTIME PRN PRN Reason: Sleep Discontinued Medications Acetaminophen (Tylenol) 650 mg PO Q4H PRN PRN Reason: Pain (Mild 1-3)/fever Last Admin: 07/13/16 22:14 Dose: 650 mg Acetaminophen/Hydrocodone Bitart ([place] 325-5 Mg) 2 tab PO Q4H PRN PRN Reason: Pain (moderate 4-6) Last Admin: 07/13/16 07:29 Dose: 2 tab Atenolol (Tenormin) 50 mg PO DAILY [facility] Last Admin: 07/12/16 15:06 Dose: Not Given Carvedilol (Coreg) 6.25 mg PO BID [facility] Last Admin: 07/14/16 12:56 Dose: Not Given Furosemide (Lasix) 40 mg IVPUSH NOW ONE Stop: 07/17/16 15:16 Last Admin: 07/17/16 17:11 Dose: 40 mg Furosemide (Lasix) 40 mg IVPUSH NOW ONE Stop: 07/18/16 08:01 Last Admin: 07/18/16 08:01 Dose: 40 mg Hydromorphone HCl (Dilaudid) 0.5 mg IVPUSH ONETIME ONE Stop: 07/11/16 21:00 Last Admin: 07/11/16 21:05 Dose: 0.5 mg Hydromorphone HCl (Dilaudid) 1 mg IVPUSH ONETIME ONE Stop: 07/11/16 22:34 Last Admin: 07/11/16 22:42 Dose: 1 mg Hydromorphone HCl (Dilaudid) 1 mg IVPUSH Q2H PRN PRN Reason: Pain Last Admin: 07/13/16 02:18 Dose: 1 mg Hydromorphone HCl (Dilaudid) 0.5 - 1 mg IVPUSH Q2H PRN PRN Reason: Pain Sodium Chloride (Normal Saline) 1,000 mls @ 999 mls/hr IV ASDIRECTED [facility] Last Admin: 07/11/16 18:58 Dose: 999 mls/hr Sodium Chloride (Normal Saline) 1,000 mls @ 125 mls/hr IV ASDIRECTED [facility] Last Admin: 07/13/16 10:51 Dose: 125 mls/hr Phytonadione 10 mg/ Sodium (Chloride) 51 mls @ 100 mls/hr IV ONETIME ONE Stop: 07/18/16 14:00 Potassium Chloride/Dextrose/Sod Cl (D5 1/2 Ns W/ 20 Meq/L Kcl) 1,000 mls @ 100 mls/hr IV ASDIRECTED [facility] Insulin Aspart (Novolog) 10 unit SUBCUT ONETIME ONE Stop: 07/15/16 17:16 Last Admin: 07/15/16 17:51 Dose: Not Given Insulin Detemir (Levemir) 50 unit SUBCUT BEDTIME [facility] Last Admin: 07/13/16 22:03 Dose: 50 units Insulin Detemir (Levemir) 45 unit SUBCUT BEDTIME [facility] Last Admin: 07/15/16 21:02 Dose: 45 units Insulin Detemir (Levemir) 30 unit SUBCUT BEDTIME [facility] Lidocaine (Lidoderm 5%) 700 mg TOP Q24H [facility] Last Admin: 07/13/16 12:31 Dose: 700 mg Lidocaine (Lidoderm 5%) 700 mg TOP Q24H [facility] Last Admin: 07/15/16 07:43 Dose: 700 mg Lorazepam (Ativan) 1 mg IV Q6H PRN PRN Reason: Nausea/Vomiting Last Admin: 07/12/16 23:18 Dose: 1 mg Miscellaneous Information (Remove Patch) 0 ea TRDERM Q24H [facility] Last Admin: 07/13/16 23:00 Dose: Not Given Ondansetron HCl (Zofran) 4 mg IVPUSH ONETIME ONE Stop: 07/11/16 21:01 Last Admin: 07/11/16 21:05 Dose: 4 mg Oxycodone HCl (Oxycodone) 5 - 10 mg PO Q4H PRN PRN Reason: Pain Last Admin: 07/16/16 17:47 Dose: 10 mg Pantoprazole Sodium (Protonix Iv) 40 mg IVPUSH DAILY [facility] Last Admin: 07/12/16 09:14 Dose: 40 mg Pantoprazole Sodium (Protonix Iv) 40 mg IVPUSH DAILY [facility] Phytonadione (Aquamephyton) 2.5 mg PO ONETIME ONE Stop: 07/12/16 09:46 Last Admin: 07/12/16 09:57 Dose: 2.5 mg Sodium Chloride (Saline Flush) 10 ml FLUSH ASDIRECTED PRN PRN Reason: Keep Vein Open Last Admin: 07/11/16 18:58 Dose: 10 ml Warfarin Sodium (Coumadin) 2.5 mg PO DAILY@1300 [facility] Last Admin: 07/18/16 14:01 Dose: Not Given - Exam General: alert, cooperative, no acute distress Lungs: Clear to auscultation, Normal respiratory effort Cardiovascular: regular rate, regular rhythm, no murmurs Abdomen: bowel sounds present, soft, no tenderness, no distension Extremities: no edema Skin: warm, dry, intact - Problem List Review Problem List Initiated/Reviewed/Updated: Yes - My Orders Last 24 Hours: My Active Orders 07/18/16 20:00 NS + KCl 20mEq/L [Normal Saline with 20 mEq KCl] 1,000 ml IV ASDIRECTED 07/19/16 05:00 BASIC METABOLIC PANEL,BMP [CHEM] Timed - Plan Plan:: ASSESSMENT / PLAN: Left cerebellar infarct - CT scan suggestive and this was confirmed with an MRI. Strength good balance remains an issue. Physical therapy had been recommending custodial placement for rehabilitation. Blood pressure still elevated despite medication adjustments. -blood pressure control -continue statin -Aspirin daily -Hold Warfarin -Physical therapy Acute on chronic cholecystitis-likely explains prolonged illness over the past few months and ongoing difficulty with pain. Would prefer to hold off on surgery until one month after his CVA but because of ongoing symptoms I do not think we'll be able to do this. -Laparoscopic cholecystectomy in a.m. Hyponatremia-likely secondary to increase fluids given during hospitalization -Recheck sodium in the a.m. Chronic anticoagulation- INR within the desired range today, but anticoagulation will be reversed because of pending surgery -Hold warfarin -vitamin K as ordered by Dr. Whalen -INR in the morning Spinal Stenosis - some of his current back pain may be secondary to cholecystitis, hopefully we'll see improvement following surgery tomorrow -Trial of fentanyl patch -Continue oxycodone -Scheduled acetaminophen -Physical therapy -CCK stimulated HIDA scan in a.m. to rule out gallbladder disease as a potential cause of back pain -outpatient followup with Dr. Tyree Whalen, Orthopedic Surgeon Abdominal pain - resolved -Diabetic diet -Monitor for pain Diabetes Type 2; poor control -glucose management improved with current regimen -Insulin; change Levemir to 20 units in the morning and 20 units in the evening -Insulin sliding scale coverage; medium coverage Maintenance issues -Nutrition: consistent carbohydrate diet -Ramos catheter not indicated at this time -DVT: SCD, Coumadin Disposition - physical therapy recommending subacute rehabilitation at a custodial, no beds available until Saturday. Primary care provider:Azul Palacio
[2016-07-18] MEDS: Insulin Aspart 100 Units/ML 3 ML Pen SUBCUT SCH (18:09)
[2016-07-18] MEDS ORDERED: D5 1/2 NS w/ 20 mEq/L KCl 1,000 ML IV SCH (20:00)
[2016-07-18] MEDS ORDERED: Insulin Aspart 100 Units/ML 3 ML Pen SUBCUT ONE (21:20)
[2016-07-18] MEDS: atorvaSTATin 20 MG Tab PO SCH (21:55)
[2016-07-19] MEDS: NS + KCl 20mEq/L 1,000 ML IV SCH ×4 (00:14→23:41)
[2016-07-19] MEDS: HYDROmorphone 2 MG Tab PO PRN ×3 (00:52→07:37)
[2016-07-19] MEDS ORDERED: Insulin Aspart 100 Units/ML 3 ML Pen SUBCUT SCH (07:00)
--- NOTE | 2016-07-19 08:02 | PN ---
DATE OF SERVICE: 07/19/2016 SUBJECTIVE: Peter is n.p.o. He will be having a laparoscopic cholecystectomy today for abnormal HIDA scan. Preoperative instructions, possible risks and benefits were discussed with both and Ms. Simms. Vital signs have been stable. He had a low-grade temp max of 100.1. PT this morning was 1.42, blood sugar was 95. REVIEW OF SYSTEMS: Remainder of review of systems negative for any pertinent positives and negatives. OBJECTIVE: GENERAL: Peter Simms is a 71-year-old male. VITAL SIGNS: TPR is 99.3, 83, 18. Blood pressure 178/92. HEENT: Negative. NECK: Supple. HEART: Regular rate and rhythm. LUNGS: Clear. ABDOMEN: Slightly distended. Minimal tenderness in the right upper quadrant. EXTREMITIES: Without peripheral edema. ASSESSMENT: Biliary dyskinesia. PLAN: 1. Check CMP. 2. Incentive spirometer. Teach patient to use 10 times every hour while awake. 3. Orders will be written postoperatively. Yumiko Hernandez PA-C /[id number]
[2016-07-19] MEDS: Pantoprazole 40 MG Tab.CR PO SCH (08:40)
[2016-07-19] MEDS: Gabapentin 300 MG Cap PO SCH ×2 (08:41→20:32)
[2016-07-19] MEDS: Acetaminophen 500 MG Tab PO SCH ×3 (08:41→20:32)
[2016-07-19] MEDS: Aspirin 81 MG Tab.EC PO SCH (08:41)
[2016-07-19] MEDS: Carvedilol 12.5 MG Tab PO SCH ×2 (08:44→17:54)
[2016-07-19] MEDS: Spironolactone 25 MG Tab PO SCH (08:45)
[2016-07-19] MEDS: FENTANYL PATCH CHECK TOP SCH (08:47)
[2016-07-19] MEDS ORDERED: Bupivacaine 0.5%/EPINEPHrine 1:200,000 50 ML MDV ONE (11:25)
[2016-07-19] MEDS ORDERED: fentaNYL 250 MCG/5 ML SDV ONE (11:28)
[2016-07-19] MEDS ORDERED: Propofol 200 MG/20 ML SDV ONE (11:29)
[2016-07-19] MEDS ORDERED: Rocuronium 50 MG/5 ML Vial ONE (11:29)
[2016-07-19] MEDS ORDERED: Dexamethasone 4 MG/ML SDV ONE (11:29)
[2016-07-19] MEDS ORDERED: Ondansetron 4 MG/2 ML SDV ONE (11:29)
[2016-07-19] MEDS: Insulin Detemir 100 Units/ML 3 ML Pen SUBCUT SCH ×2 (11:39→21:45)
[2016-07-19] MEDS: Insulin Aspart 100 Units/ML 3 ML Pen SUBCUT SCH ×3 (11:40→21:46)
[2016-07-19] MEDS ORDERED: Lactated Ringers 1,000 ML ONE (12:24)
[2016-07-19] MEDS: cefOXitin 2 GM in Sodium Chloride 0.9% 50 ML IV ONE ×2 (12:29→13:55)
[2016-07-19] MEDS ORDERED: Neostigmine Methylsulfate 1 MG/ML 5 ML Syringe ONE (12:43)
[2016-07-19] MEDS ORDERED: fentaNYL 100 MCG/2 ML SDV ONE (12:46)
--- NOTE | 2016-07-19 13:09 | PCM.PN ---
- General Info Date of Service: 07/19/16 - Review of Systems General: Reports: weakness. Denies: fever, chills Pulmonary: Reports: no symptoms Cardiovascular: Reports: no symptoms Gastrointestinal: Reports: No symptoms Musculoskeletal: Reports: back pain, leg pain Systems Review Comment:: This patient had an abnormal gallbladder evaluation and is scheduled for laparoscopic cholecystectomy today. When seen this morning he reports posterior left hip pain, he did fall 2 days ago and at that time reported no significant pain or injury. Now has a fairly large ecchymosis over the area and will require further evaluation with x-rays. - Patient Data Vitals - most recent: Last Vital Signs Temp 100 F 07/19/16 11:07 Pulse 82 07/19/16 11:07 Resp 16 07/19/16 11:07 BP 153/90 H 07/19/16 11:07 Pulse Ox 96 07/19/16 11:07 Weight - most recent: 222 lb 15.996 oz I&O - last 24 hours: Intake & Output 07/18/16 07/19/16 07/19/16 22:59 06:59 14:59 Intake Total 50 1480 Output Total 725 250 Balance 50 755 -250 Lab Results last 24 hrs: Laboratory Results - last 24 hr 07/19/16 07/19/16 07/19/16 Range/Units 04:00 04:00 06:53 PT 15.2 H (9.5-12.0) sec INR 1.42 H (0.80-1.20) Sodium 129 L (140-148) mmol/L Potassium 4.5 (3.6-5.2) mmol/L Chloride 94 L (100-108) mmol/L Carbon Dioxide 30 (21-32) mmol/L Anion Gap 9.5 (5.0-14.0) mmol/L BUN 20 H (7-18) mg/dL Creatinine 1.0 (0.8-1.3) mg/dL Est Cr Clr Drug Dosing 79.95 mL/min Estimated GFR (MDRD) > 60 (>60) Glucose 195 H (74-106) mg/dL Calcium 8.2 L (8.5-10.1) mg/dL Total Bilirubin 0.6 (0.2-1.0) mg/dL Direct Bilirubin 0.18 (0.0-0.2) mg/dL Indirect Bilirubin 0.42 AST 28 (15-37) U/L ALT 26 (12-78) U/L Alkaline Phosphatase 71 (46-116) U/L Total Protein 6.3 L (6.4-8.2) g/dL Albumin 2.0 L (3.4-5.0) g/dL Globulin 4.3 H (2.3-3.5) g/dL Albumin/Globulin Ratio 0.5 L (1.2-2.2) Med Orders - Current: Current Medications Acetaminophen (Tylenol Extra Strength) 1,000 mg PO TID [facility] Last Admin: 07/19/16 08:41 Dose: Not Given Albuterol (Proventil Neb Soln) 2.5 mg NEB Q4H PRN PRN Reason: Shortness Of Breath/wheezing Aspirin (Halfprin) 81 mg PO DAILY [facility] Last Admin: 07/19/16 08:41 Dose: Not Given Atorvastatin Calcium (Lipitor) 40 mg PO BEDTIME [facility] Last Admin: 07/18/16 21:55 Dose: 40 mg Bisacodyl (Dulcolax) 5 mg PO DAILY PRN PRN Reason: Constipation Last Admin: 07/15/16 07:48 Dose: 5 mg Carvedilol (Coreg) 12.5 mg PO BIDMEALS [facility] Last Admin: 07/19/16 08:44 Dose: 12.5 mg Docusate Sodium (Colace) 100 mg PO BID PRN PRN Reason: Constipation Last Admin: 07/15/16 07:48 Dose: 100 mg Fentanyl (Duragesic) 12 mcg TRDERM Q72H [facility] Last Admin: 07/18/16 14:01 Dose: 12 mcg Gabapentin (Neurontin) 300 mg PO BID [facility] Last Admin: 07/19/16 08:41 Dose: Not Given Hydromorphone HCl (Dilaudid) 2 - 4 mg PO Q3H PRN PRN Reason: Pain Last Admin: 07/19/16 07:37 Dose: 4 mg Potassium Chloride/Sodium Chloride (Normal Saline With 20 Meq Kcl) 1,000 mls @ 100 mls/hr IV ASDIRECTED [facility] Last Admin: 07/19/16 10:09 Dose: 100 mls/hr Insulin Aspart (Novolog) 0 unit SUBCUT ASDIRECTED [facility] PRN Reason: Protocol Stop: 07/24/16 07:00 Last Admin: 07/19/16 11:40 Dose: 4 units Insulin Detemir (Levemir) 20 unit SUBCUT BID [facility] Last Admin: 07/19/16 11:39 Dose: 20 units Lorazepam (Ativan) 1 mg PO Q6H PRN PRN Reason: Anxiety Miscellaneous Information (Remove Patch) 0 ea TRDERM Q24H [facility] Last Admin: 07/18/16 19:55 Dose: Not Given Naloxone HCl (Narcan) 0.4 mg IVPUSH Q2M PRN PRN Reason: Respiratory Distress Fentanyl Patch Check 0 each TOP DAILY [facility] Last Admin: 07/19/16 08:47 Dose: Not Given Ondansetron HCl (Zofran Odt) 4 mg PO Q6H PRN PRN Reason: Nausea able to take PO Pantoprazole Sodium (Protonix) 40 mg PO ACBREAKFAST [facility] Last Admin: 07/19/16 08:40 Dose: Not Given Polyethylene Glycol (Miralax) 17 gm PO DAILY PRN PRN Reason: Constipation Last Admin: 07/15/16 14:35 Dose: 17 gm Ramipril (Altace) 10 mg PO BID [facility] Last Admin: 07/19/16 08:44 Dose: 10 mg Spironolactone (Aldactone) 50 mg PO DAILY [facility] Last Admin: 07/19/16 08:45 Dose: 50 mg Zolpidem Tartrate (Ambien) 5 mg PO BEDTIME PRN PRN Reason: Sleep Discontinued Medications Acetaminophen (Tylenol) 650 mg PO Q4H PRN PRN Reason: Pain (Mild 1-3)/fever Last Admin: 07/13/16 22:14 Dose: 650 mg Acetaminophen/Hydrocodone Bitart ([place] 325-5 Mg) 2 tab PO Q4H PRN PRN Reason: Pain (moderate 4-6) Last Admin: 07/13/16 07:29 Dose: 2 tab Atenolol (Tenormin) 50 mg PO DAILY [facility] Last Admin: 07/12/16 15:06 Dose: Not Given Bupivacaine HCl/Epinephrine Bitart ([place] 0.5%/Epinephrine 1:200,000) Confirm Administered Dose 50 ml .ROUTE .STK-MED ONE Stop: 07/19/16 11:26 Last Admin: 07/19/16 12:33 Dose: 5 ml Carvedilol (Coreg) 6.25 mg PO BID [facility] Last Admin: 07/14/16 12:56 Dose: Not Given Dexamethasone (Dexamethasone) Confirm Administered Dose 4 mg .ROUTE .STK-MED ONE Stop: 07/19/16 11:30 Fentanyl (Sublimaze) Confirm Administered Dose 250 mcg .ROUTE .STK-MED ONE Stop: 07/19/16 11:29 Fentanyl (Sublimaze) Confirm Administered Dose 100 mcg .ROUTE .STK-MED ONE Stop: 07/19/16 12:47 Furosemide (Lasix) 40 mg IVPUSH NOW ONE Stop: 07/17/16 15:16 Last Admin: 07/17/16 17:11 Dose: 40 mg Furosemide (Lasix) 40 mg IVPUSH NOW ONE Stop: 07/18/16 08:01 Last Admin: 07/18/16 08:01 Dose: 40 mg Glycopyrrolate () Confirm Administered Dose 1 mg .ROUTE .STK-MED ONE Stop: 07/19/16 12:44 Hydromorphone HCl (Dilaudid) 0.5 mg IVPUSH ONETIME ONE Stop: 07/11/16 21:00 Last Admin: 07/11/16 21:05 Dose: 0.5 mg Hydromorphone HCl (Dilaudid) 1 mg IVPUSH ONETIME ONE Stop: 07/11/16 22:34 Last Admin: 07/11/16 22:42 Dose: 1 mg Hydromorphone HCl (Dilaudid) 1 mg IVPUSH Q2H PRN PRN Reason: Pain Last Admin: 07/13/16 02:18 Dose: 1 mg Hydromorphone HCl (Dilaudid) 0.5 - 1 mg IVPUSH Q2H PRN PRN Reason: Pain Sodium Chloride (Normal Saline) 1,000 mls @ 999 mls/hr IV ASDIRECTED [facility] Last Admin: 07/11/16 18:58 Dose: 999 mls/hr Sodium Chloride (Normal Saline) 1,000 mls @ 125 mls/hr IV ASDIRECTED [facility] Last Admin: 07/13/16 10:51 Dose: 125 mls/hr Phytonadione 10 mg/ Sodium (Chloride) 51 mls @ 100 mls/hr IV ONETIME ONE Stop: 07/18/16 14:00 Last Admin: 07/18/16 16:25 Dose: 100 mls/hr Potassium Chloride/Dextrose/Sod Cl (D5 1/2 Ns W/ 20 Meq/L Kcl) 1,000 mls @ 100 mls/hr IV ASDIRECTED [facility] Cefoxitin Sodium 2 gm/ Sodium (Chloride) 50 mls @ 100 mls/hr IV ONETIME ONE Stop: 07/19/16 10:29 Last Admin: 07/19/16 12:29 Dose: 100 mls/hr Lactated Ringer's (Ringers, Lactated) Confirm Administered Dose 1,000 mls @ as directed .ROUTE .STK-MED ONE Stop: 07/19/16 12:25 Insulin Aspart (Novolog) 0 unit SUBCUT ASDIRECTED [facility] PRN Reason: Protocol Last Admin: 07/18/16 18:09 Dose: 6 units Insulin Aspart (Novolog) 10 unit SUBCUT ONETIME ONE Stop: 07/15/16 17:16 Last Admin: 07/15/16 17:51 Dose: Not Given Insulin Aspart (Novolog) 10 unit SUBCUT ONETIME ONE PRN Reason: Protocol Stop: 07/18/16 21:21 Last Admin: 07/18/16 21:53 Dose: 10 units Insulin Aspart (Novolog) 0 unit SUBCUT QIDACANDBED [facility] PRN Reason: Protocol Stop: 07/24/16 07:00 Insulin Detemir (Levemir) 50 unit SUBCUT BEDTIME [facility] Last Admin: 07/13/16 22:03 Dose: 50 units Insulin Detemir (Levemir) 45 unit SUBCUT BEDTIME [facility] Last Admin: 07/15/16 21:02 Dose: 45 units Insulin Detemir (Levemir) 30 unit SUBCUT BEDTIME [facility] Lidocaine (Lidoderm 5%) 700 mg TOP Q24H [facility] Last Admin: 07/13/16 12:31 Dose: 700 mg Lidocaine (Lidoderm 5%) 700 mg TOP Q24H [facility] Last Admin: 07/15/16 07:43 Dose: 700 mg Lorazepam (Ativan) 1 mg IV Q6H PRN PRN Reason: Nausea/Vomiting Last Admin: 07/12/16 23:18 Dose: 1 mg Miscellaneous Information (Remove Patch) 0 ea TRDERM Q24H [facility] Last Admin: 07/13/16 23:00 Dose: Not Given Neostigmine Methylsulfate (Neostigmine) Confirm Administered Dose 5 mg .ROUTE .STK-MED ONE Stop: 07/19/16 12:44 Ondansetron HCl (Zofran) 4 mg IVPUSH ONETIME ONE Stop: 07/11/16 21:01 Last Admin: 07/11/16 21:05 Dose: 4 mg Ondansetron HCl (Zofran) Confirm Administered Dose 4 mg .ROUTE .STK-MED ONE Stop: 07/19/16 11:30 Oxycodone HCl (Oxycodone) 5 - 10 mg PO Q4H PRN PRN Reason: Pain Last Admin: 07/16/16 17:47 Dose: 10 mg Pantoprazole Sodium (Protonix Iv) 40 mg IVPUSH DAILY [facility] Last Admin: 07/12/16 09:14 Dose: 40 mg Pantoprazole Sodium (Protonix Iv) 40 mg IVPUSH DAILY [facility] Phytonadione (Aquamephyton) 2.5 mg PO ONETIME ONE Stop: 07/12/16 09:46 Last Admin: 07/12/16 09:57 Dose: 2.5 mg Propofol (Diprivan 20 Ml) Confirm Administered Dose 200 mg .ROUTE .STK-MED ONE Stop: 07/19/16 11:30 Rocuronium S[place] (Zemuron) Confirm Administered Dose 50 mg .ROUTE .STK-MED ONE Stop: 07/19/16 11:30 Sodium Chloride (Saline Flush) 10 ml FLUSH ASDIRECTED PRN PRN Reason: Keep Vein Open Last Admin: 07/11/16 18:58 Dose: 10 ml Warfarin Sodium (Coumadin) 2.5 mg PO DAILY@1300 [facility] Last Admin: 07/18/16 14:01 Dose: Not Given - Exam General: alert, cooperative, mild distress Lungs: Clear to auscultation, Normal respiratory effort Cardiovascular: regular rate, regular rhythm, no murmurs Abdomen: bowel sounds present, soft, no tenderness, no distension Extremities: other (Ecchymosis left buttock and lateral hip) Skin: warm, dry, intact - Problem List Review Problem List Initiated/Reviewed/Updated: Yes - My Orders Last 24 Hours: My Active Orders 07/18/16 20:00 NS + KCl 20mEq/L [Normal Saline with 20 mEq KCl] 1,000 ml IV ASDIRECTED 07/19/16 12:55 Hip Min 3V or 4V w Pelvis Bi [CR] Urgent 07/20/16 05:00 BASIC METABOLIC PANEL,BMP [CHEM] Timed INR,PT,PROTHROMBIN TIME [COAG] Timed - Plan Plan:: ASSESSMENT / PLAN: Left cerebellar infarct - CT scan suggestive and this was confirmed with an MRI. Strength good balance remains an issue. Physical therapy had been recommending jail placement for rehabilitation. -blood pressure control -continue statin -Aspirin daily -Hold Warfarin -Physical therapy Acute on chronic cholecystitis-likely explains prolonged illness over the past few months and ongoing difficulty with pain. Would prefer to hold off on surgery until one month after his CVA but because of ongoing symptoms I do not think we'll be able to do this. -Laparoscopic cholecystectomy today Left lateral and posterior hip pain-he did experience a fall 2 days ago -Pelvic and left hip x-rays Hyponatremia-likely secondary to increase fluids given during hospitalization -Recheck sodium in the a.m. Chronic anticoagulation- INR within the desired range today, but anticoagulation will be reversed because of pending surgery -Hold warfarin -vitamin K as ordered by Dr. Whalen -INR in the morning Spinal Stenosis - some of his current back pain may be secondary to cholecystitis, hopefully we'll see improvement following surgery -Trial of fentanyl patch -Continue oxycodone -Scheduled acetaminophen -Physical therapy -CCK stimulated HIDA scan in a.m. to rule out gallbladder disease as a potential cause of back pain -outpatient followup with Dr. Tyree Whalen, Orthopedic Surgeon Abdominal pain - resolved -Diabetic diet -Monitor for pain Diabetes Type 2; poor control -glucose management improved with current regimen -Insulin; change Levemir to 20 units in the morning and 20 units in the evening -Insulin sliding scale coverage; medium coverage Maintenance issues -Nutrition: consistent carbohydrate diet -Ramos catheter not indicated at this time -DVT: SCD, Coumadin Disposition - physical therapy recommending subacute rehabilitation at a jail, no beds available until Saturday. Primary care provider:Azul Palacio
[2016-07-19] MEDS ORDERED: Naloxone 0.4 MG/ML SDV IV PRN (14:10)
[2016-07-19] MEDS ORDERED: HYDROmorphone/Normal Saline 15 MG/30 ML PCA IV PRN (14:10)
[2016-07-19] MEDS: Acetaminophen/HYDROcodone 325-5 MG Tab PO PRN ×2 (14:35→18:25)
--- NOTE | 2016-07-19 14:36 | CR ---
Pelvis bilateral hips The pelvic structures are unremarkable. The hips demonstrate mild joint space loss bilaterally. Ther e are no posttraumatic findings. The soft tissues are unremarkable. Impression: 1. 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
[2016-07-19] MEDS: cefOXitin 2 GM in Sodium Chloride 0.9% 50 ML IV SCH ×2 (17:46→23:34)
[2016-07-19] MEDS ORDERED: Enoxaparin 100 MG/1 ML Syringe SUBCUT ONE (18:00)
[2016-07-19] MEDS ORDERED: HYDROmorphone/Normal Saline 15 MG/30 ML PCA IV ONE (18:44)
[2016-07-19] MEDS ORDERED: Warfarin 5 MG Tab PO ONE (20:00)
[2016-07-19] MEDS: atorvaSTATin 20 MG Tab PO SCH (20:38)
[2016-07-19] MEDS: VERIFY FENT PATCH TOP SCH (21:44)
[2016-07-20] MEDS: cefOXitin 2 GM in Sodium Chloride 0.9% 50 ML IV SCH ×3 (05:44→20:57)
[2016-07-20] MEDS ORDERED: Acetaminophen/HYDROcodone 325-5 MG Tab PO PRN (07:13)
[2016-07-20] MEDS ORDERED: NS + KCl 20mEq/L 1,000 ML IV SCH (07:16)
[2016-07-20] MEDS: Pantoprazole 40 MG Tab.CR PO SCH (07:49)
[2016-07-20] MEDS: Carvedilol 12.5 MG Tab PO SCH ×2 (07:50→16:36)
[2016-07-20] MEDS: Acetaminophen/HYDROcodone 325-5 MG Tab PO PRN ×3 (08:28→16:39)
--- NOTE | 2016-07-20 08:53 | PN ---
DATE OF SERVICE: 07/20/2016 SUBJECTIVE: Peter is postop day 1 following a laparoscopic cholecystectomy. His vital signs have been stable. His PT was 13.9, INR is 1.30. Hemoglobin is 8.4. Magnesium is 1.4. DOLORES drain has put out 60 mL of a pink serosanguinous drainage. There is no bile noted. REVIEW OF SYSTEMS: Remainder of review of systems negative for any pertinent positives and negatives. OBJECTIVE: GENERAL: Peter Simms is a 71-year-old male, somewhat confused. VITAL SIGNS: TPR is 98.9, 76, 20. Blood pressure 161/81. HEENT: Negative. NECK: Supple. HEART: Regular rate and rhythm. LUNGS: Clear. ABDOMEN: Dressings dry and intact. DOLORES drain as above. EXTREMITIES: Without peripheral edema. ASSESSMENT: Laparoscopic cholecystectomy. PLAN: 1. Magnesium 2 g IV q.6 hours x72 hours. 2. Lovenox 100 subcu tonight one time. 3. Coumadin 7.5 mg p.o. one time today. 4. [place] 5/325 mg 1 to 2 every 4 hours p.r.n. pain. 5. Regular consistent carb diet. 6. Atenolol 50 mg p.o. daily. 7. Decrease lactated Ringer's IV to 60 mL/h. 8. Good pulmonary toilet encouraged. 9. We will evaluate p.r.n. or in a.m. Yumiko Hernandez PA-C /[id number]
[2016-07-20] MEDS ORDERED: Warfarin 2.5 MG Tab PO ONE (09:00)
[2016-07-20] MEDS ORDERED: Enoxaparin 100 MG/1 ML Syringe SUBCUT ONE (09:00)
[2016-07-20] MEDS: Gabapentin 300 MG Cap PO SCH ×2 (09:01→21:03)
[2016-07-20] MEDS: Atenolol 50 MG Tab PO SCH (09:01)
[2016-07-20] MEDS: Aspirin 81 MG Tab.EC PO SCH (09:01)
[2016-07-20] MEDS: Spironolactone 25 MG Tab PO SCH (09:03)
[2016-07-20] MEDS: Acetaminophen 500 MG Tab PO SCH ×3 (09:04→21:05)
[2016-07-20] MEDS: Magnesium Sulfate/Water 2 GM in Premix Bag 1 BAG IV SCH ×3 (09:05→22:16)
[2016-07-20] MEDS: VERIFY FENT PATCH TOP SCH ×2 (09:07→21:04)
[2016-07-20] MEDS: Insulin Detemir 100 Units/ML 3 ML Pen SUBCUT SCH ×2 (09:14→22:17)
--- NOTE | 2016-07-20 13:25 | PCM.PN ---
- General Info Date of Service: 07/20/16 Functional Status: Reports: pain controlled, ambulating, urinating - Review of Systems General: Reports: weakness. Denies: fever, chills Pulmonary: Reports: no symptoms Cardiovascular: Reports: no symptoms Gastrointestinal: Reports: Abdominal pain, Decreased appetite, Flatus. Denies: Nausea, Vomiting Musculoskeletal: Reports: back pain Psychiatric: Reports: confusion Systems Review Comment:: This patient has done well since laparoscopic cholecystectomy was performed yesterday. Vital signs have been stable and he has remained afebrile. Thus far he is tolerating a diet without significant difficulty and has been able to ambulate in the hallway with assistance. Continues to experience some back pain but it does seem to be somewhat improved since the cholecystectomy. X- rays were obtained yesterday because of left hip and buttock pain following a fall 3 days previous. X-rays were negative showing no evidence of acute fracture. - Patient Data Vitals - most recent: Last Vital Signs Temp 98.1 F 07/20/16 10:55 Pulse 65 07/20/16 10:55 Resp 18 07/20/16 10:55 BP 134/65 07/20/16 10:55 Pulse Ox 96 07/20/16 10:55 Weight - most recent: 222 lb 15.996 oz I&O - last 24 hours: Intake & Output 07/19/16 07/20/16 07/20/16 22:59 06:59 14:59 Intake Total 838 1603 740 Output Total 150 660 200 Balance 688 943 540 Lab Results last 24 hrs: Laboratory Results - last 24 hr 07/20/16 07/20/16 07/20/16 Range/Units 03:57 03:57 04:02 WBC 9.2 (4.5-11.0) K/uL RBC 2.84 L (4.30-5.90) M/uL Hgb 8.4 L (12.0-15.0) g/dL Hct 25.3 L (40.0-54.0) % MCV 89 (80-98) fL MCH 30 (27-31) pg MCHC 33 (32-36) % Plt Count 364 (150-400) K/uL PT 13.9 H (9.5-12.0) sec INR 1.30 H (0.80-1.20) Sodium 131 L (140-148) mmol/L Potassium 4.5 (3.6-5.2) mmol/L Chloride 97 L (100-108) mmol/L Carbon Dioxide 28 (21-32) mmol/L Anion Gap 10.5 (5.0-14.0) mmol/L BUN 14 (7-18) mg/dL Creatinine 1.0 (0.8-1.3) mg/dL Est Cr Clr Drug Dosing 79.95 mL/min Estimated GFR (MDRD) > 60 (>60) Glucose 76 (74-106) mg/dL Calcium 8.3 L (8.5-10.1) mg/dL Phosphorus 3.7 (2.5-4.9) mg/dL Magnesium 1.4 L (1.8-2.4) mg/dL Total Bilirubin 0.6 (0.2-1.0) mg/dL AST 50 H D (15-37) U/L ALT 37 (12-78) U/L Alkaline Phosphatase 58 (46-116) U/L Total Protein 6.3 L (6.4-8.2) g/dL Albumin 2.0 L (3.4-5.0) g/dL Globulin 4.3 H (2.3-3.5) g/dL Albumin/Globulin Ratio 0.5 L (1.2-2.2) Med Orders - Current: Current Medications Acetaminophen (Tylenol Extra Strength) 1,000 mg PO TID [facility] Last Admin: 07/20/16 09:04 Dose: Not Given Acetaminophen/Hydrocodone Bitart ([place] 325-5 Mg) 1 - 2 tab PO Q4H PRN PRN Reason: PAIN Last Admin: 07/20/16 12:39 Dose: 2 tab Albuterol (Proventil Neb Soln) 2.5 mg NEB Q4H PRN PRN Reason: Shortness Of Breath/wheezing Aspirin (Halfprin) 81 mg PO DAILY [facility] Last Admin: 07/20/16 09:01 Dose: 81 mg Atenolol (Tenormin) 50 mg PO DAILY [facility] Last Admin: 07/20/16 09:01 Dose: 50 mg Atorvastatin Calcium (Lipitor) 40 mg PO BEDTIME [facility] Last Admin: 07/19/16 20:38 Dose: 40 mg Bisacodyl (Dulcolax) 5 mg PO DAILY PRN PRN Reason: Constipation Last Admin: 07/15/16 07:48 Dose: 5 mg Carvedilol (Coreg) 12.5 mg PO BIDMEALS [facility] Last Admin: 07/20/16 07:50 Dose: 12.5 mg Docusate Sodium (Colace) 100 mg PO BID PRN PRN Reason: Constipation Last Admin: 07/15/16 07:48 Dose: 100 mg Fentanyl (Duragesic) 12 mcg TRDERM Q72H [facility] Last Admin: 07/18/16 14:01 Dose: 12 mcg Gabapentin (Neurontin) 300 mg PO BID [facility] Last Admin: 07/20/16 09:01 Dose: 300 mg Cefoxitin Sodium 2 gm/ Sodium (Chloride) 50 mls @ 100 mls/hr IV Q6H [facility] Last Admin: 07/20/16 11:42 Dose: 100 mls/hr Magnesium Sulfate 2 gm/ Premix 50 mls @ 25 mls/hr IV Q6H [facility] Stop: 07/23/16 05:59 Last Admin: 07/20/16 09:05 Dose: 25 mls/hr Insulin Aspart (Novolog) 0 unit SUBCUT ASDIRECTED [facility] PRN Reason: Protocol Stop: 07/24/16 07:00 Last Admin: 07/19/16 21:46 Dose: 2 units Insulin Detemir (Levemir) 20 unit SUBCUT BID [facility] Last Admin: 07/20/16 09:14 Dose: 20 units Lorazepam (Ativan) 1 mg PO Q6H PRN PRN Reason: Anxiety Verify Fent Patch 0 each TOP BID [facility] Last Admin: 07/20/16 09:07 Dose: Not Given Ondansetron HCl (Zofran Odt) 4 mg PO Q6H PRN PRN Reason: Nausea able to take PO Pantoprazole Sodium (Protonix) 40 mg PO ACBREAKFAST [facility] Last Admin: 07/20/16 07:49 Dose: 40 mg Polyethylene Glycol (Miralax) 17 gm PO DAILY PRN PRN Reason: Constipation Last Admin: 07/15/16 14:35 Dose: 17 gm Ramipril (Altace) 10 mg PO BID [facility] Last Admin: 07/20/16 09:02 Dose: 10 mg Spironolactone (Aldactone) 50 mg PO DAILY [facility] Last Admin: 07/20/16 09:03 Dose: 50 mg Zolpidem Tartrate (Ambien) 5 mg PO BEDTIME PRN PRN Reason: Sleep Discontinued Medications Acetaminophen (Tylenol) 650 mg PO Q4H PRN PRN Reason: Pain (Mild 1-3)/fever Last Admin: 07/13/16 22:14 Dose: 650 mg Acetaminophen/Hydrocodone Bitart ([place] 325-5 Mg) 2 tab PO Q4H PRN PRN Reason: Pain (moderate 4-6) Last Admin: 07/13/16 07:29 Dose: 2 tab Atenolol (Tenormin) 50 mg PO DAILY [facility] Last Admin: 07/12/16 15:06 Dose: Not Given Bupivacaine HCl/Epinephrine Bitart ([place] 0.5%/Epinephrine 1:200,000) Confirm Administered Dose 50 ml .ROUTE .STK-MED ONE Stop: 07/19/16 11:26 Last Admin: 07/19/16 12:33 Dose: 5 ml Carvedilol (Coreg) 6.25 mg PO BID [facility] Last Admin: 07/14/16 12:56 Dose: Not Given Dexamethasone (Dexamethasone) Confirm Administered Dose 4 mg .ROUTE .STK-MED ONE Stop: 07/19/16 11:30 Enoxaparin Sodium (Lovenox) 100 mg SUBCUT ONETIME ONE Stop: 07/19/16 18:01 Last Admin: 07/19/16 17:55 Dose: 100 mg Enoxaparin Sodium (Lovenox) 100 mg SUBCUT ONETIME ONE Stop: 07/20/16 09:01 Last Admin: 07/20/16 09:02 Dose: 100 mg Fentanyl (Sublimaze) Confirm Administered Dose 250 mcg .ROUTE .STK-MED ONE Stop: 07/19/16 11:29 Fentanyl (Sublimaze) Confirm Administered Dose 100 mcg .ROUTE .STK-MED ONE Stop: 07/19/16 12:47 Furosemide (Lasix) 40 mg IVPUSH NOW ONE Stop: 07/17/16 15:16 Last Admin: 07/17/16 17:11 Dose: 40 mg Furosemide (Lasix) 40 mg IVPUSH NOW ONE Stop: 07/18/16 08:01 Last Admin: 07/18/16 08:01 Dose: 40 mg Glycopyrrolate () Confirm Administered Dose 1 mg .ROUTE .STK-MED ONE Stop: 07/19/16 12:44 Hydromorphone HCl (Dilaudid) 0.5 mg IVPUSH ONETIME ONE Stop: 07/11/16 21:00 Last Admin: 07/11/16 21:05 Dose: 0.5 mg Hydromorphone HCl (Dilaudid) 1 mg IVPUSH ONETIME ONE Stop: 07/11/16 22:34 Last Admin: 07/11/16 22:42 Dose: 1 mg Hydromorphone HCl (Dilaudid) 1 mg IVPUSH Q2H PRN PRN Reason: Pain Last Admin: 07/13/16 02:18 Dose: 1 mg Hydromorphone HCl (Dilaudid) 0.5 - 1 mg IVPUSH Q2H PRN PRN Reason: Pain Hydromorphone HCl (Dilaudid) 2 - 4 mg PO Q3H PRN PRN Reason: Pain Last Admin: 07/19/16 07:37 Dose: 4 mg Hydromorphone HCl (Dilaudid Penology Professor 15 Mg In Ns 30 Ml) 0 mg IV ASDIRECTED PRN; Protocol PRN Reason: [employer] PAIN CONTROL Last Admin: 07/19/16 18:53 Dose: 15 mg Hydromorphone HCl (Dilaudid Penology Professor 15 Mg In Ns 30 Ml) Confirm Administered Dose 15 mg IV .STK-MED ONE Stop: 07/19/16 18:45 Last Admin: 07/19/16 20:16 Dose: Not Given Sodium Chloride (Normal Saline) 1,000 mls @ 999 mls/hr IV ASDIRECTED [facility] Last Admin: 07/11/16 18:58 Dose: 999 mls/hr Sodium Chloride (Normal Saline) 1,000 mls @ 125 mls/hr IV ASDIRECTED [facility] Last Admin: 07/13/16 10:51 Dose: 125 mls/hr Phytonadione 10 mg/ Sodium (Chloride) 51 mls @ 100 mls/hr IV ONETIME ONE Stop: 07/18/16 14:00 Last Admin: 07/18/16 16:25 Dose: 100 mls/hr Potassium Chloride/Dextrose/Sod Cl (D5 1/2 Ns W/ 20 Meq/L Kcl) 1,000 mls @ 100 mls/hr IV ASDIRECTED [facility] Cefoxitin Sodium 2 gm/ Sodium (Chloride) 50 mls @ 100 mls/hr IV ONETIME ONE Stop: 07/19/16 10:29 Last Admin: 07/19/16 13:55 Dose: Not Given Potassium Chloride/Sodium Chloride (Normal Saline With 20 Meq Kcl) 1,000 mls @ 100 mls/hr IV ASDIRECTED [facility] Last Admin: 07/19/16 23:41 Dose: 100 mls/hr Lactated Ringer's (Ringers, Lactated) Confirm Administered Dose 1,000 mls @ as directed .ROUTE .STK-MED ONE Stop: 07/19/16 12:25 Potassium Chloride/Sodium Chloride (Normal Saline With 20 Meq Kcl) 1,000 mls @ 60 mls/hr IV ASDIRECTED [facility] Insulin Aspart (Novolog) 0 unit SUBCUT ASDIRECTED [facility] PRN Reason: Protocol Last Admin: 07/18/16 18:09 Dose: 6 units Insulin Aspart (Novolog) 10 unit SUBCUT ONETIME ONE Stop: 07/15/16 17:16 Last Admin: 07/15/16 17:51 Dose: Not Given Insulin Aspart (Novolog) 10 unit SUBCUT ONETIME ONE PRN Reason: Protocol Stop: 07/18/16 21:21 Last Admin: 07/18/16 21:53 Dose: 10 units Insulin Aspart (Novolog) 0 unit SUBCUT QIDACANDBED [facility] PRN Reason: Protocol Stop: 07/24/16 07:00 Insulin Detemir (Levemir) 50 unit SUBCUT BEDTIME [facility] Last Admin: 07/13/16 22:03 Dose: 50 units Insulin Detemir (Levemir) 45 unit SUBCUT BEDTIME [facility] Last Admin: 07/15/16 21:02 Dose: 45 units Insulin Detemir (Levemir) 30 unit SUBCUT BEDTIME [facility] Lidocaine (Lidoderm 5%) 700 mg TOP Q24H [facility] Last Admin: 07/13/16 12:31 Dose: 700 mg Lidocaine (Lidoderm 5%) 700 mg TOP Q24H [facility] Last Admin: 07/15/16 07:43 Dose: 700 mg Lorazepam (Ativan) 1 mg IV Q6H PRN PRN Reason: Nausea/Vomiting Last Admin: 07/12/16 23:18 Dose: 1 mg Miscellaneous Information (Remove Patch) 0 ea TRDERM Q24H [facility] Last Admin: 07/13/16 23:00 Dose: Not Given Miscellaneous Information (Remove Patch) 0 ea TRDERM Q24H [facility] Last Admin: 07/18/16 19:55 Dose: Not Given Naloxone HCl (Narcan) 0.4 mg IVPUSH Q2M PRN PRN Reason: Respiratory Distress Naloxone HCl (Narcan) 0.1 mg IV ASDIRECTED PRN PRN Reason: decreased respiratory rate Neostigmine Methylsulfate (Neostigmine) Confirm Administered Dose 5 mg .ROUTE .STK-MED ONE Stop: 07/19/16 12:44 Fentanyl Patch Check 0 each TOP DAILY [facility] Last Admin: 07/19/16 08:47 Dose: Not Given Ondansetron HCl (Zofran) 4 mg IVPUSH ONETIME ONE Stop: 07/11/16 21:01 Last Admin: 07/11/16 21:05 Dose: 4 mg Ondansetron HCl (Zofran) Confirm Administered Dose 4 mg .ROUTE .STK-MED ONE Stop: 07/19/16 11:30 Oxycodone HCl (Oxycodone) 5 - 10 mg PO Q4H PRN PRN Reason: Pain Last Admin: 07/16/16 17:47 Dose: 10 mg Pantoprazole Sodium (Protonix Iv) 40 mg IVPUSH DAILY [facility] Last Admin: 07/12/16 09:14 Dose: 40 mg Pantoprazole Sodium (Protonix Iv) 40 mg IVPUSH DAILY [facility] Phytonadione (Aquamephyton) 2.5 mg PO ONETIME ONE Stop: 07/12/16 09:46 Last Admin: 07/12/16 09:57 Dose: 2.5 mg Propofol (Diprivan 20 Ml) Confirm Administered Dose 200 mg .ROUTE .STK-MED ONE Stop: 07/19/16 11:30 Rocuronium [place] (Zemuron) Confirm Administered Dose 50 mg .ROUTE .STK-MED ONE Stop: 07/19/16 11:30 Sodium Chloride (Saline Flush) 10 ml FLUSH ASDIRECTED PRN PRN Reason: Keep Vein Open Last Admin: 07/11/16 18:58 Dose: 10 ml Warfarin Sodium (Coumadin) 2.5 mg PO DAILY@1300 [facility] Last Admin: 07/18/16 14:01 Dose: Not Given Warfarin Sodium (Coumadin) 5 mg PO ONETIME ONE Stop: 07/19/16 20:01 Last Admin: 03/09/17 20:32 Dose: 5 mg Warfarin Sodium (Coumadin) 7.5 mg PO ONETIME ONE Stop: 07/20/16 09:01 Last Admin: 07/20/16 09:01 Dose: 7.5 mg - Exam Quality Assessment: DVT prophylaxis General: alert, cooperative, mild distress Lungs: Clear to auscultation, Normal respiratory effort, Decreased breath sounds Cardiovascular: regular rate, regular rhythm, no murmurs Abdomen: bowel sounds present, soft, tenderness. No: rigidity, rebound, guarding, distension Extremities: no edema Skin: warm, dry, intact - Problem List Review Problem List Initiated/Reviewed/Updated: Yes - My Orders Last 24 Hours: My Active Orders 07/20/16 13:18 Convert IV to Saline Lock [OM.PC] Routine 07/21/16 05:00 BASIC METABOLIC PANEL,BMP [CHEM] Timed CBC WITH AUTO DIFF [HEME] Timed MAGNESIUM [CHEM] Timed - Plan Plan:: ASSESSMENT / PLAN: Left cerebellar infarct - CT scan suggestive and this was confirmed with an MRI. Strength good balance remains an issue. Physical therapy had been recommending half-way placement for rehabilitation. -blood pressure control -continue statin -Aspirin daily -Hold Warfarin -Physical therapy Acute on chronic cholecystitis-likely explains prolonged illness over the past few months and ongoing difficulty with pain. He is stable following laparoscopic cholecystectomy done yesterday by Dr. Whalen. -Postoperative care per Dr. Whalen Left lateral and posterior hip pain-x-rays of the hip and pelvis showed no evidence of fracture Hyponatremia-improved over the past few days -Recheck sodium in the a.m. Chronic anticoagulation- INR now subtherapeutic following reversal with vitamin K for surgery -Warfarin 7.5 mg by mouth today -INR in the morning Spinal Stenosis - pain has improved following cholecystectomy -Continue fentanyl patch 12 mcg -Continue oxycodone -Scheduled acetaminophen -Physical therapy -outpatient followup with Dr. Tyree Whalen, Orthopedic Surgeon Diabetes Type 2; poor control -glucose management improved with current regimen -Insulin; change Levemir to 20 units in the morning and 20 units in the evening -Insulin sliding scale coverage; medium coverage Maintenance issues -Nutrition: consistent carbohydrate diet -Ramos catheter not indicated at this time -DVT: SCD, Coumadin Disposition - physical therapy recommending subacute rehabilitation at a half-way, anticipate discharge tomorrow Primary care provider:Azul Palacio
[2016-07-20] MEDS: Insulin Aspart 100 Units/ML 3 ML Pen SUBCUT SCH ×2 (13:54→17:53)
[2016-07-20] MEDS: atorvaSTATin 20 MG Tab PO SCH (21:02)
[2016-07-21] MEDS: cefOXitin 2 GM in Sodium Chloride 0.9% 50 ML IV SCH ×2 (01:00→06:25)
[2016-07-21] MEDS: Acetaminophen/HYDROcodone 325-5 MG Tab PO PRN ×2 (01:00→09:43)
[2016-07-21] MEDS: Magnesium Sulfate/Water 2 GM in Premix Bag 1 BAG IV SCH ×2 (04:23→09:29)
[2016-07-21] MEDS: Pantoprazole 40 MG Tab.CR PO SCH (07:13)
--- NOTE | 2016-07-21 08:55 | PN ---
DATE OF SERVICE: 07/21/2016 SUBJECTIVE: Peter is postop day #2, following a laparoscopic cholecystectomy. He did have a CPAP prior to surgery, remains to be confused, white count is 13.2, temp max 99.8. DOLORES drain put out 70 mL of a light pink serous drainage. Oral fluids 500 and output incontinent. REVIEW OF SYSTEMS: Remainder of review of systems negative for any pertinent positives and negatives. OBJECTIVE: GENERAL: Peter Simms is a 71-year-old male. He is sitting up in the chair, cooperative, appears to be uncomfortable. VITAL SIGNS: TPR is 96.5, 65, 18, blood pressure 152/66. HEENT: Negative. NECK: Supple. HEART: Regular rate and rhythm. LUNGS: Clear. ABDOMEN: Incisions look good and DOLORES drain intact as above. Abdominal binder has been on. EXTREMITIES: Without peripheral edema. ASSESSMENT: Laparoscopic cholecystectomy on 07/19/2016. PLAN: 1. Remove DOLOERS drain and place 4x4 over DOLORES drain site. He plans to be discharged per Dr. Yogesh Laughlin to snf today, to follow up in Surgery Department on 07/30/2016 with Yumiko Hernandez PA-C, on 07/30/2016 at 10:00 a.m. 2. Continue good pulmonary toilet. 3. We will evaluate p.r.n. or in a.m. Yumiko Hernandez PA-C /[id number]
[2016-07-21] MEDS: Acetaminophen 500 MG Tab PO SCH (09:27)
[2016-07-21] MEDS: Atenolol 50 MG Tab PO SCH (09:27)
[2016-07-21 09:28] VITALS: BP 158/72
[2016-07-21] MEDS: Gabapentin 300 MG Cap PO SCH (09:28)
[2016-07-21] MEDS: Spironolactone 25 MG Tab PO SCH (09:28)
[2016-07-21] MEDS: Carvedilol 12.5 MG Tab PO SCH (09:28)
[2016-07-21] MEDS: Aspirin 81 MG Tab.EC PO SCH (09:28)
[2016-07-21] MEDS: VERIFY FENT PATCH TOP SCH (09:32)
[2016-07-21] MEDS: Insulin Detemir 100 Units/ML 3 ML Pen SUBCUT SCH (09:33)
[2016-07-21] MEDS ORDERED: Furosemide 20 MG/2 ML VIAL IV ONE (10:00)
--- NOTE | 2016-07-21 11:18 | PCM.DCSUM1 ---
Discharge Summary - Hospital Course Brief History: This patient is a 71-year-old gentleman who was admitted through the emergency room with weakness and instability secondary to a left cerebellar CVA. - Discharge Data Discharge Date: 07/21/16 Discharge Disposition: DC/Tfer to [facility] Condition: Fair - Discharge Diagnosis/Problem(s) (1) Cholecystitis SNOMED Code(s): 34171584 ICD Code: K81.9 - CHOLECYSTITIS, UNSPECIFIED Status: Acute (2) Dementia SNOMED Code(s): 02910377 ICD Code: F03.90 - UNSPECIFIED DEMENTIA WITHOUT BEHAVIORAL DISTURBANCE Status: Acute (3) Hyponatremia SNOMED Code(s): 60771860 ICD Code: E87.1 - HYPO-OSMOLALITY AND HYPONATREMIA Status: Acute (4) Cerebellar infarct SNOMED Code(s): 44294607 ICD Code: I63.9 - CEREBRAL INFARCTION, UNSPECIFIED Status: Acute Priority : High (5) Spinal stenosis SNOMED Code(s): 07330139 ICD Code: M48.00 - SPINAL STENOSIS, SITE UNSPECIFIED Status: Acute Priority: High Qualifiers: Spinal region: lumbar Qualified Code(s): M48.06 - Spinal stenosis, lumbar region (6) Diabetes type 2, uncontrolled SNOMED Code(s): 55560165, 047569000 ICD Code: E11.65 - TYPE 2 DIABETES MELLITUS WITH HYPERGLYCEMIA Status: Acute Qualifiers: Diabetes mellitus complication status: with ophthalmic complications Diabetes mellitus complication detail: with other ophthalmic complication Diabetes mellitus nursing home insulin use: with exterminator termite use Qualified Code(s) : E11.39 - Type 2 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 ; E11.65 - Type 2 diabetes mellitus with hyperglycemia; Z79.4 - half-way ( current) use of insulin - Patient Summary/Data Consults: Consultations 07/12/16 00:10 Consult to Spiritual Care [CONS] Routine 07/12/16 07:31 Consult to Physician [CONS] Routine Consulting Provider: Tyree Whalen Call Completed to Consulting Physician: No Reason for Consult: spinal stenosis Special Instructions: patient had an [facility] , would like patient seen in hospital. 07/13/16 09:39 PT Evaluation and Treatment [CONS] Routine Please Evaluate and Treat. PT Reason for Consult: Ambulation This query below is only for informational purposes and is not editable. Admission Diagnosis/Problem: Ischemic stroke/CVA Hospital Course: Mr. Simms is a 71-year-old gentleman who is admitted through the emergency department because of weakness and marked instability. Over the past 2 months prior to admission had had progressive decline and weakness. Prior to that he been functioning fairly well, but his reported that he had began to have some significant memory problems over the past year. For 3 days prior to admission he was unable to get out of bed was very weak on initial assessment. CT scan obtained initially and followed up by MRI documented a left cerebellar infarct. Initially was admitted and given IV fluids for hydration. Carotid Doppler studies were obtained and showed no significant occlusion that needed intervention. He was seen and evaluated by physical therapy and by the time of discharge was transferring and ambulating more independently but still had some obvious ataxia. During his hospital stay had ongoing difficulty with back pain he has a known history of spinal stenosis. He was seen and evaluated by Dr. Tyree Whalen for orthopedic and spine consult, was recommended that he can have injections as an outpatient once he had recovered from his current illness. He was given pain medication as needed for his back pain and started on a fentanyl patch 12 mcg in addition to hydrocodone. Because of the history of smoldering progressive weakness as well as some difficulty with eating nausea and increased back pain. HIDA scan was obtained with CCK stimulation, this did document reproduction of symptoms with CCK injection as well as severely decreased ejection fraction consistent with gallbladder disease. He was seen and evaluated by Dr. Jacoby Whalen or surgical consult and did undergo a laparoscopic cholecystectomy. There was some improvement in his symptoms with eating as well as back pain following cholecystectomy. Because of his known CVA he was evaluated for wrist fractures for cerebral vascular disease and treated for hypertension and as well as his hypercholesterolemia. Diabetes was monitored throughout his hospital stay and by the time of discharge his glucose levels were relatively stable on current management. He has a known history of atrial fibrillation and chronic anticoagulation with warfarin. INR levels were within the desired range prior to surgery but his INR was reversed with vitamin K prior to the cholecystectomy. After surgery was treated with Lovenox and restarted on oral anticoagulation with warfarin. Prior to discharge his INR was therapeutic, he will remain on warfarin 2 mg daily and a followup INR will be obtained in 2 days time. He was noted to have persistent hyponatremia throughout his hospital stay, prior to discharge his sodium had dropped to 127 which was felt to be secondary to increased fluids and he was given IV Lasix prior to discharge. He will have a followup sodium level obtained in 2 days time. He also had anemia noted through the hospital stay which became mildly worse following his cholecystectomy. He will be placed on iron therapy and a followup hemoglobin level will be obtained in 2 days time. He will be discharged to [facility] where he can receive restorative physical therapy and occupational therapy. Activity will be as tolerated and he will be on a low-sodium and diabetic diet. Followup will be with primary care at the [facility] as needed. - Patient Instructions Diet: Diabetic Diet Activity: As Tolerated Other/Special Instructions: Restorative physical therapy and occupational therapy while at the [facility]. Followup laboratory studies to be obtained on July 23; BMP, CBC, and INR. - Discharge Plan Prescriptions/Med Rec: Acetaminophen/HYDROcodone [[place] 325-5 MG] 1 tab PO Q4H PRN #40 tablet PRN Reason: Pain Aspirin [Halfprin] 81 mg PO DAILY #100 tab.ec Gabapentin [Neurontin] 300 mg PO BID #60 cap Insulin Detemir [Levemir] 25 unit SUBCUT BID #3 pen Warfarin [Coumadin] 2.5 mg PO DAILY #60 tablet atorvaSTATin [Lipitor] 40 mg PO BEDTIME #30 tablet fentaNYL [Duragesic] 12 mcg TRDERM Q72H #10 patch Home Medications: Home Meds Atenolol 50 mg PO DAILY 07/11/16 [History] Carvedilol 6.25 mg PO BID 07/11/16 [History] Pantoprazole [Protonix] 40 mg PO DAILY 07/11/16 [History] Ramipril 10 mg PO BID 07/11/16 [History] Spironolactone 50 mg PO DAILY 07/11/16 [History] Acetaminophen/HYDROcodone [[place] 325-5 MG] 1 tab PO Q4H PRN #40 tablet 07/21/16 [Rx] Aspirin [Halfprin] 81 mg PO DAILY #100 tab.ec 07/21/16 [Rx] Gabapentin [Neurontin] 300 mg PO BID #60 cap 07/21/16 [Rx] Insulin Detemir [Levemir] 25 unit SUBCUT BID #3 pen 07/21/16 [Rx] Warfarin [Coumadin] 2.5 mg PO DAILY #60 tablet 07/21/16 [Rx] atorvaSTATin [Lipitor] 40 mg PO BEDTIME #30 tablet 07/21/16 [Rx] fentaNYL [Duragesic] 12 mcg TRDERM Q72H #10 patch 07/21/16 [Rx] Forms: ED Department Discharge Referrals: Marizol Crane PA-C [Primary Care Provider] - Yumiko Hernandez PA-C [Physician Order Checker] - 07/30/16 10:00 am - Patient Data Vitals - Most Recent: Last Vital Signs Temp 96.5 F 07/21/16 07:38 Pulse 70 07/21/16 09:28 Resp 18 07/21/16 07:38 BP 158/72 H 07/21/16 09:28 Pulse Ox 96 07/21/16 07:38 Weight - Most Recent: 222 lb 15.996 oz I&O - Last 24 hours: Intake & Output 07/20/16 07/21/16 07/21/16 22:59 06:59 14:59 Intake Total 580 1010 Output Total 540 1280 Balance 40 -270 Lab Results - Last 24 hrs: Laboratory Results - last 24 hr 07/21/16 07/21/16 07/21/16 Range/Units 04:30 04:30 04:30 WBC 13.2 H (4.5-11.0) K/uL RBC 3.01 L (4.30-5.90) M/uL Hgb 8.8 L (12.0-15.0) g/dL Hct 26.9 L (40.0-54.0) % MCV 89 (80-98) fL MCH 29 (27-31) pg MCHC 33 (32-36) % Plt Count 538 H (150-400) K/uL Neut % (Auto) 76 H (36-66) % Lymph % (Auto) 9 L (24-44) % Greer % (Auto) 13 H (2-6) % Eos % (Auto) 2 (2-4) % Baso % (Auto) 0 (0-1) % PT (9.5-12.0) sec INR (0.80-1.20) Sodium 127 L (140-148) mmol/L Potassium 4.3 (3.6-5.2) mmol/L Chloride 96 L (100-108) mmol/L Carbon Dioxide 26 (21-32) mmol/L Anion Gap 9.3 (5.0-14.0) mmol/L BUN 15 (7-18) mg/dL Creatinine 1.0 (0.8-1.3) mg/dL Est Cr Clr Drug Dosing 79.95 mL/min Estimated GFR (MDRD) > 60 (>60) Glucose 62 L (74-106) mg/dL Calcium 8.7 (8.5-10.1) mg/dL Magnesium 2.0 D (1.8-2.4) mg/dL 07/21/16 Range/Units 04:30 WBC (4.5-11.0) K/uL RBC (4.30-5.90) M/uL Hgb (12.0-15.0) g/dL Hct (40.0-54.0) % MCV (80-98) fL MCH (27-31) pg MCHC (32-36) % Plt Count (150-400) K/uL Neut % (Auto) (36-66) % Lymph % (Auto) (24-44) % Greer % (Auto) (2-6) % Eos % (Auto) (2-4) % Baso % (Auto) (0-1) % PT 25.5 H (9.5-12.0) sec INR 2.34 H (0.80-1.20) Sodium (140-148) mmol/L Potassium (3.6-5.2) mmol/L Chloride (100-108) mmol/L Carbon Dioxide (21-32) mmol/L Anion Gap (5.0-14.0) mmol/L BUN (7-18) mg/dL Creatinine (0.8-1.3) mg/dL Est Cr Clr Drug Dosing mL/min Estimated GFR (MDRD) (>60) Glucose (74-106) mg/dL Calcium (8.5-10.1) mg/dL Magnesium (1.8-2.4) mg/dL Med Orders - Current: Current Medications Discontinued Medications Acetaminophen (Tylenol) 650 mg PO Q4H PRN PRN Reason: Pain (Mild 1-3)/fever Last Admin: 07/13/16 22:14 Dose: 650 mg Acetaminophen (Tylenol Extra Strength) 1,000 mg PO TID [facility] Last Admin: 07/21/16 09:27 Dose: Not Given Acetaminophen/Hydrocodone Bitart ([place] 325-5 Mg) 2 tab PO Q4H PRN PRN Reason: Pain (moderate 4-6) Last Admin: 07/13/16 07:29 Dose: 2 tab Acetaminophen/Hydrocodone Bitart ([place] 325-5 Mg) 1 - 2 tab PO Q4H PRN PRN Reason: PAIN Last Admin: 07/21/16 09:43 Dose: 2 tab Albuterol (Proventil Neb Soln) 2.5 mg NEB Q4H PRN PRN Reason: Shortness Of Breath/wheezing Aspirin (Halfprin) 81 mg PO DAILY [facility] Last Admin: 07/21/16 09:28 Dose: 81 mg Atenolol (Tenormin) 50 mg PO DAILY [facility] Last Admin: 07/12/16 15:06 Dose: Not Given Atenolol (Tenormin) 50 mg PO DAILY [facility] Last Admin: 07/21/16 09:27 Dose: 50 mg Atorvastatin Calcium (Lipitor) 40 mg PO BEDTIME [facility] Last Admin: 07/20/16 21:02 Dose: 40 mg Bisacodyl (Dulcolax) 5 mg PO DAILY PRN PRN Reason: Constipation Last Admin: 07/15/16 07:48 Dose: 5 mg Bupivacaine HCl/Epinephrine Bitart (Marcaine 0.5%/Epinephrine 1:200,000) Confirm Administered Dose 50 ml .ROUTE .STK-MED ONE Stop: 07/19/16 11:26 Last Admin: 07/19/16 12:33 Dose: 5 ml Carvedilol (Coreg) 6.25 mg PO BID [facility] Last Admin: 07/14/16 12:56 Dose: Not Given Carvedilol (Coreg) 12.5 mg PO BIDMEALS [facility] Last Admin: 07/21/16 09:28 Dose: 12.5 mg Dexamethasone (Dexamethasone) Confirm Administered Dose 4 mg .ROUTE .STK-MED ONE Stop: 07/19/16 11:30 Docusate Sodium (Colace) 100 mg PO BID PRN PRN Reason: Constipation Last Admin: 07/15/16 07:48 Dose: 100 mg Enoxaparin Sodium (Lovenox) 100 mg SUBCUT ONETIME ONE Stop: 07/19/16 18:01 Last Admin: 07/19/16 17:55 Dose: 100 mg Enoxaparin Sodium (Lovenox) 100 mg SUBCUT ONETIME ONE Stop: 07/20/16 09:01 Last Admin: 07/20/16 09:02 Dose: 100 mg Fentanyl (Duragesic) 12 mcg TRDERM Q72H [facility] Last Admin: 07/18/16 14:01 Dose: 12 mcg Fentanyl (Sublimaze) Confirm Administered Dose 250 mcg .ROUTE .STK-MED ONE Stop: 07/19/16 11:29 Fentanyl (Sublimaze) Confirm Administered Dose 100 mcg .ROUTE .STK-MED ONE Stop: 07/19/16 12:47 Furosemide (Lasix) 40 mg IVPUSH NOW ONE Stop: 07/17/16 15:16 Last Admin: 07/17/16 17:11 Dose: 40 mg Furosemide (Lasix) 40 mg IVPUSH NOW ONE Stop: 07/18/16 08:01 Last Admin: 07/18/16 08:01 Dose: 40 mg Furosemide (Lasix) 20 mg IV ONETIME ONE Stop: 07/21/16 10:01 Last Admin: 07/21/16 10:03 Dose: 20 mg Gabapentin (Neurontin) 300 mg PO BID [facility] Last Admin: 07/21/16 09:28 Dose: 300 mg Glycopyrrolate () Confirm Administered Dose 1 mg .ROUTE .STK-MED ONE Stop: 07/19/16 12:44 Hydromorphone HCl (Dilaudid) 0.5 mg IVPUSH ONETIME ONE Stop: 07/11/16 21:00 Last Admin: 07/11/16 21:05 Dose: 0.5 mg Hydromorphone HCl (Dilaudid) 1 mg IVPUSH ONETIME ONE Stop: 07/11/16 22:34 Last Admin: 07/11/16 22:42 Dose: 1 mg Hydromorphone HCl (Dilaudid) 1 mg IVPUSH Q2H PRN PRN Reason: Pain Last Admin: 07/13/16 02:18 Dose: 1 mg Hydromorphone HCl (Dilaudid) 0.5 - 1 mg IVPUSH Q2H PRN PRN Reason: Pain Hydromorphone HCl (Dilaudid) 2 - 4 mg PO Q3H PRN PRN Reason: Pain Last Admin: 07/19/16 07:37 Dose: 4 mg Hydromorphone HCl (Dilaudid [employer] 15 Mg In Ns 30 Ml) 0 mg IV ASDIRECTED PRN; Protocol PRN Reason: KNOT SAW OPERATOR PAIN CONTROL Last Admin: 07/19/16 18:53 Dose: 15 mg Hydromorphone HCl (Dilaudid [employer] 15 Mg In Ns 30 Ml) Confirm Administered Dose 15 mg IV .STK-MED ONE Stop: 07/19/16 18:45 Last Admin: 07/19/16 20:16 Dose: Not Given Sodium Chloride (Normal Saline) 1,000 mls @ 999 mls/hr IV ASDIRECTED [facility] Last Admin: 07/11/16 18:58 Dose: 999 mls/hr Sodium Chloride (Normal Saline) 1,000 mls @ 125 mls/hr IV ASDIRECTED [facility] Last Admin: 07/13/16 10:51 Dose: 125 mls/hr Phytonadione 10 mg/ Sodium (Chloride) 51 mls @ 100 mls/hr IV ONETIME ONE Stop: 07/18/16 14:00 Last Admin: 07/18/16 16:25 Dose: 100 mls/hr Potassium Chloride/Dextrose/Sod Cl (D5 1/2 Ns W/ 20 Meq/L Kcl) 1,000 mls @ 100 mls/hr IV ASDIRECTED [facility] Cefoxitin Sodium 2 gm/ Sodium (Chloride) 50 mls @ 100 mls/hr IV ONETIME ONE Stop: 07/19/16 10:29 Last Admin: 07/19/16 13:55 Dose: Not Given Potassium Chloride/Sodium Chloride (Normal Saline With 20 Meq Kcl) 1,000 mls @ 100 mls/hr IV ASDIRECTED [facility] Last Admin: 07/19/16 23:41 Dose: 100 mls/hr Lactated Ringer's (Ringers, Lactated) Confirm Administered Dose 1,000 mls @ as directed .ROUTE .STK-MED ONE Stop: 07/19/16 12:25 Cefoxitin Sodium 2 gm/ Sodium (Chloride) 50 mls @ 100 mls/hr IV Q6H [facility] Last Admin: 07/21/16 06:25 Dose: 100 mls/hr Magnesium Sulfate 2 gm/ Premix 50 mls @ 25 mls/hr IV Q6H [facility] Stop: 07/23/16 05:59 Last Admin: 07/21/16 09:29 Dose: 25 mls/hr Potassium Chloride/Sodium Chloride (Normal Saline With 20 Meq Kcl) 1,000 mls @ 60 mls/hr IV ASDIRECTED PATRICK Insulin Aspart (Novolog) 0 unit SUBCUT ASDIRECTED PATRICK PRN Reason: Protocol Last Admin: 07/18/16 18:09 Dose: 6 units Insulin Aspart (Novolog) 10 unit SUBCUT ONETIME ONE Stop: 07/15/16 17:16 Last Admin: 07/15/16 17:51 Dose: Not Given Insulin Aspart (Novolog) 10 unit SUBCUT ONETIME ONE PRN Reason: Protocol Stop: 07/18/16 21:21 Last Admin: 07/18/16 21:53 Dose: 10 units Insulin Aspart (Novolog) 0 unit SUBCUT QIDACANDBED [facility] PRN Reason: Protocol Stop: 07/24/16 07:00 Insulin Aspart (Novolog) 0 unit SUBCUT ASDIRECTED [facility] PRN Reason: Protocol Stop: 07/24/16 07:00 Last Admin: 07/20/16 17:53 Dose: 2 units Insulin Detemir (Levemir) 50 unit SUBCUT BEDTIME [facility] Last Admin: 07/13/16 22:03 Dose: 50 units Insulin Detemir (Levemir) 45 unit SUBCUT BEDTIME [facility] Last Admin: 07/15/16 21:02 Dose: 45 units Insulin Detemir (Levemir) 30 unit SUBCUT BEDTIME [facility] Insulin Detemir (Levemir) 20 unit SUBCUT BID [facility] Last Admin: 07/21/16 09:33 Dose: 20 units Lidocaine (Lidoderm 5%) 700 mg TOP Q24H [facility] Last Admin: 07/13/16 12:31 Dose: 700 mg Lidocaine (Lidoderm 5%) 700 mg TOP Q24H [facility] Last Admin: 07/15/16 07:43 Dose: 700 mg Lorazepam (Ativan) 1 mg IV Q6H PRN PRN Reason: Nausea/Vomiting Last Admin: 07/12/16 23:18 Dose: 1 mg Lorazepam (Ativan) 1 mg PO Q6H PRN PRN Reason: Anxiety Miscellaneous Information (Remove Patch) 0 ea TRDERM Q24H [facility] Last Admin: 07/13/16 23:00 Dose: Not Given Miscellaneous Information (Remove Patch) 0 ea TRDERM Q24H [facility] Last Admin: 07/18/16 19:55 Dose: Not Given Naloxone HCl (Narcan) 0.4 mg IVPUSH Q2M PRN PRN Reason: Respiratory Distress Naloxone HCl (Narcan) 0.1 mg IV ASDIRECTED PRN PRN Reason: decreased respiratory rate Neostigmine Methylsulfate (Neostigmine) Confirm Administered Dose 5 mg .ROUTE .STK-MED ONE Stop: 07/19/16 12:44 Fentanyl Patch Check 0 each TOP DAILY [facility] Last Admin: 07/19/16 08:47 Dose: Not Given Verify Fent Patch 0 each TOP BID [facility] Last Admin: 07/21/16 09:32 Dose: Not Given Ondansetron HCl (Zofran) 4 mg IVPUSH ONETIME ONE Stop: 07/11/16 21:01 Last Admin: 07/11/16 21:05 Dose: 4 mg Ondansetron HCl (Zofran Odt) 4 mg PO Q6H PRN PRN Reason: Nausea able to take PO Ondansetron HCl (Zofran) Confirm Administered Dose 4 mg .ROUTE .STK-MED ONE Stop: 07/19/16 11:30 Oxycodone HCl (Oxycodone) 5 - 10 mg PO Q4H PRN PRN Reason: Pain Last Admin: 07/16/16 17:47 Dose: 10 mg Pantoprazole Sodium (Protonix Iv) 40 mg IVPUSH DAILY [facility] Last Admin: 07/12/16 09:14 Dose: 40 mg Pantoprazole Sodium (Protonix Iv) 40 mg IVPUSH DAILY [facility] Pantoprazole Sodium (Protonix) 40 mg PO ACBREAKFAST [facility] Last Admin: 07/21/16 07:13 Dose: 40 mg Phytonadione (Aquamephyton) 2.5 mg PO ONETIME ONE Stop: 07/12/16 09:46 Last Admin: 07/12/16 09:57 Dose: 2.5 mg Polyethylene Glycol (Miralax) 17 gm PO DAILY PRN PRN Reason: Constipation Last Admin: 07/15/16 14:35 Dose: 17 gm Propofol (Diprivan 20 Ml) Confirm Administered Dose 200 mg .ROUTE .STK-MED ONE Stop: 07/19/16 11:30 Ramipril (Altace) 10 mg PO BID [facility] Last Admin: 07/21/16 09:27 Dose: 10 mg Rocuronium [place] (Zemuron) Confirm Administered Dose 50 mg .ROUTE .STK-MED ONE Stop: 07/19/16 11:30 Sodium Chloride (Saline Flush) 10 ml FLUSH ASDIRECTED PRN PRN Reason: Keep Vein Open Last Admin: 07/11/16 18:58 Dose: 10 ml Spironolactone (Aldactone) 50 mg PO DAILY [facility] Last Admin: 07/21/16 09:28 Dose: 50 mg Warfarin Sodium (Coumadin) 2.5 mg PO DAILY@1300 [facility] Last Admin: 07/18/16 14:01 Dose: Not Given Warfarin Sodium (Coumadin) 5 mg PO ONETIME ONE Stop: 07/19/16 20:01 Last Admin: 07/19/16 20:32 Dose: 5 mg Warfarin Sodium (Coumadin) 7.5 mg PO ONETIME ONE Stop: 07/20/16 09:01 Last Admin: 07/20/16 09:01 Dose: 7.5 mg Zolpidem Tartrate (Ambien) 5 mg PO BEDTIME PRN PRN Reason: Sleep *Q Meaningful Use (DIS) - VTE *Q VTE Criteria *Q: - Stroke *Q Stroke Criteria *Q: - AMI *Q AMI Criteria *Q:
--- NOTE | 2016-07-23 09:57 | OR ---
DATE OF PROCEDURE: 07/19/2016 PREOPERATIVE DIAGNOSIS: Biliary dyskinesia. POSTOPERATIVE DIAGNOSIS: Biliary dyskinesia associated with subacute cholecystitis. OPERATIVE PROCEDURE: Laparoscopic cholecystectomy (66557). ANESTHESIA: General. VERTICAL MILL OPERATOR: Yumiko Hernandez PA-C. INDICATION FOR PROCEDURE: A 71-year-old male presenting with some ongoing upper abdominal pain and nausea. Workup eventually included a CCK-stimulated HIDA scan which showed an 11% ejection fraction and the CCK injection also reproducing his symptoms. Given this, he is to undergo a cholecystectomy at this time. Potential risks including bleeding, infection, injury to underlying viscera, possible persistent symptoms postoperatively were all reviewed and the patient then wishes to proceed. DETAILS OF PROCEDURE: The patient was taken to the operating room and placed in a supine position. After general endotracheal anesthesia was induced, the abdomen was prepped and draped, a transverse incision just to the right of the umbilicus was made and peritoneal cavity was entered under direct vision with Optiview trocar inflated to 15 mmHg pressure with CO2. Laparoscope was reinserted. No underlying trocar insertion site injuries were seen. Following this, a HIDA 12-mm epigastric trocar was placed along with a single 5 mm right abdominal trocar. The upper abdomen was examined. The patient noted to have a subacute cholecystitis with gallbladder being quite strikingly edematous and distended. Gallbladder was retracted anterolaterally and dissection began on the gallbladder neck, continued around the gallbladder neck and cystic duct junction. Once that area was well delineated as was the cystic artery, both structures were clipped 3 times proximally and once distally and divided. The gallbladder was then dissected off the gallbladder bed with the Harmonic scalpel and delivered through the epigastric trocar site, noted to contain some fine sludge within the wall, as well as quite a bit in the way of cholesterolosis of the gallbladder mucosa. At this point, no further problems were noted. A Wilfredo-Desai drain was taken out through the right lateral trocar site, placed in the area of the gallbladder bed and remaining trocars were removed and the cavity deflated. The fascia at the 12-mm site was closed with 0-Vicryl stitch and the skin with 6-0 Vicryl skin stitch. Dressing was applied. The patient was taken to the recovery room in a satisfactory condition. Jacoby Whalen MD /[id number]
== END 2016-07-21 10:30 | DRG 988 ==
LOC: JP.ED 17:50 → JP.MS 22:34
PROVIDERS: ADMIT Internal Medicine; ATTEND Hospitalist
PROC: 0FT44ZZ Resection of Gallbladder, Percutaneous Endoscopic Approach (ICD-10-PCS; principal; 2016-07-19)
DX: I63.9 Cerebral infarction, unspecified (principal); K81.2 Acute cholecystitis with chronic cholecystitis; E87.1 Hypo-osmolality and hyponatremia; R26.0 Ataxic gait; M48.06 Spinal stenosis, lumbar region; I10 Essential (primary) hypertension; E11.65 Type 2 diabetes mellitus with hyperglycemia; Z79.4 Long term (current) use of insulin; Z87.891 Personal history of nicotine dependence; E11.39 Type 2 diabetes mellitus with other diabetic ophthalmic complication; R10.10 Upper abdominal pain, unspecified; R53.1 Weakness; R41.82 Altered mental status, unspecified; R79.1 Abnormal coagulation profile; I48.91 Unspecified atrial fibrillation; M46.96 Unspecified inflammatory spondylopathy, lumbar region; M19.90 Unspecified osteoarthritis, unspecified site; K21.9 Gastro-esophageal reflux disease without esophagitis; G47.30 Sleep apnea, unspecified; Z95.2 Presence of prosthetic heart valve; Z79.82 Long term (current) use of aspirin; Z79.01 Long term (current) use of anticoagulants; D64.9 Anemia, unspecified; M25.552 Pain in left hip; S70.12XA Contusion of left thigh, initial encounter; W18.30XA Fall on same level, unspecified, initial encounter; Y92.239 Unspecified place in hospital as the place of occurrence of the external cause
CPT/HCPCS: 36415; 70450; 71020 ×2; 74176; 80053; 81001; 85025; 85610; 93005; 93010; 96374; 96375; 99285 ×2; J1170; J2405; J7040; J7050; 70551; 70551-26; 72110; 72110-26; 73522; 73522-26; 76705; 76705-26; 78227; 78227-26; 80048; 80076; 82962; 83735; 84100; 84443; 85018; 85027; 87086; 88304; 93306; 94762; 96376; 97110-GP; 97116-GP; 97140-GP; 97162-GP; 97530-GP; A9270-GY; C9113; J0694; J1100; J1650; J1940; J2060; J2704; J3010; J3430; J3475; J3480; J7120

== ENCOUNTER 2016-07-30 11:27 | Emergency (ER) | payer MEDICARE, OTHER ==
[2016-07-30] MEDS ORDERED: HYDROmorphone 0.5 MG/0.5 ML Syringe IM ONE (12:37)
--- NOTE | 2016-07-30 12:38 | EDM.PDOC ---
ED HPI LOWER BACK PAIN/INJURY - General Chief Complaint: Back Pain or Injury Stated Complaint: BACK PAIN Time Seen by Provider: 07/30/16 12:38 Source: Reports: Patient History Limitations: Reports: No limitations - History of Present Illness INITIAL COMMENTS - FREE TEXT/NARRATIVE: PT HAS HAD INCREASED PAIN IN HIS BACK. hE WAS SCHEDULED FOR AN EPIDURAL AND AND HIS iNR WAS TOO HIGH SO IT WAS NOT DONE. hE IS SCHEDULED FOR A SECOND ON . . hE HAS SEVERE PAIN GOING DOWN BOTH LEGS. Timing/Duration: Reports: Day(s):, Getting worse Location: Reports: lower Associated Symptoms: Reports: Difficulty walking, Other ( INCREASED PAIN GOING DOWN BOTH LEGS. ) - Related Data Allergies/ADRs: Allergies Allergy/AdvReac Type Severity Reaction Status Date / Time No Known Allergies Allergy Verified 07/30/16 11:50 Home Meds: Home Meds Atenolol 50 mg PO DAILY 07/11/16 [History] Carvedilol 6.25 mg PO BID 07/11/16 [History] Pantoprazole [Protonix] 40 mg PO DAILY 07/11/16 [History] Ramipril 10 mg PO BID 07/11/16 [History] Spironolactone 50 mg PO DAILY 07/11/16 [History] Acetaminophen/HYDROcodone [Somers 325-5 MG] 1 tab PO Q4H PRN #40 tablet 07/21/16 [Rx] Aspirin [Halfprin] 81 mg PO DAILY #100 tab.ec 07/21/16 [Rx] Gabapentin [Neurontin] 300 mg PO BID #60 cap 07/21/16 [Rx] Insulin Detemir [Levemir] 25 unit SUBCUT BID #3 pen 07/21/16 [Rx] Warfarin [Coumadin] 2.5 mg PO DAILY #60 tablet 07/21/16 [Rx] atorvaSTATin [Lipitor] 40 mg PO BEDTIME #30 tablet 07/21/16 [Rx] fentaNYL [Duragesic] 12 mcg TRDERM Q72H #10 patch 07/21/16 [Rx] Past Medical History Cardiovascular History: Reports: Afib, Heart murmur, Heart valve replacement, Hypertension Respiratory History: Reports: Sleep apnea Gastrointestinal History: Reports: GERD Musculoskeletal History: Reports: Arthritis, Back pain, chronic, Gout Other Neuro History: acute confusion in the last 3 days Endocrine/Metabolic History: Reports: Diabetes, type II - Infectious Disease History Infectious Disease History: Reports: Chicken pox, Influenza, Measles - Past Surgical History HEENT Surgical History: Reports: Other (see below) Other HEENT Surgeries/Procedures: eye bleed with repair of retina Cardiovascular Surgical History: Reports: Valve replacement GI Surgical History: Reports: Appendectomy Other Musculoskeletal Surgeries/Procedures:: spinal stenosis Social & Family History - Family History Cardiac: Reports: [place] : Reports: None OBGYN: Reports: None Neurological: Reports: Parkinson's Other Neurological Family History: mother Endocrine/Metabolic: Reports: Diabetes, type II - Tobacco Use Smoking Status *Q: Never Smoker Used Tobacco, but Quit: Yes Month Tobacco Last Used: 16 years ago - Caffeine Use Caffeine Use: Reports: Coffee Other Caffeine Use: a couple cups a day - Recreational Drug Use Recreational Drug Use: No ED ROS GENERAL - Review of Systems Review Of Systems: See Below Constitutional: Reports: no symptoms HEENT: Reports: No symptoms Respiratory: Reports: No Symptoms Cardiovascular: Reports: No symptoms Endocrine: Reports: no symptoms GI/Abdominal: Reports: No symptoms : Reports: no symptoms Musculoskeletal: Reports: other ( INCREASED PAIN IN HIS LOW BACK AND DOWN BOTH LEGS. ) ED EXAM,LOWER BACK PAIN/INJURY - Physical Exam Exam: See Below Text/Narrative:: pT IS HAVING INCREASED PAIN IN THE LOWER BACK AND GOING DOWN BOTH LEGS. Exam Limited By: No limitations General Appearance: alert, anxious, moderate distress Ears: normal TMs Nose: normal inspection Throat/Mouth: Normal inspection Head: atraumatic Neck: normal inspection Respiratory/Chest: no respiratory distress Back Exam: other (PT IS TENDER OVER HIS LOWER BACK AND VERY UNCOMFORTABLE WHEN HIS LEGS ARE RAISED. ) Extremities: normal inspection Neurological: alert Course - Vital Signs Last Recorded V/S: Last Vital Signs Temp 36.9 C 07/30/16 11:49 Pulse 75 07/30/16 14:25 Resp 15 07/30/16 14:25 BP 155/76 H 07/30/16 14:25 Pulse Ox 97 07/30/16 14:25 - Orders/Labs/Meds Labs: Laboratory Tests 07/30/16 07/30/16 07/30/16 Range/Units 14:53 14:53 14:53 WBC 12.0 H (4.5-11.0) K/uL RBC 3.31 L (4.30-5.90) M/uL Hgb 9.3 L (12.0-15.0) g/dL Hct 29.1 L (40.0-54.0) % MCV 88 (80-98) fL MCH 28 (27-31) pg MCHC 32 (32-36) % Plt Count 467 H (150-400) K/uL Neut % (Auto) 75 H (36-66) % Lymph % (Auto) 13 L (24-44) % Adams % (Auto) 10 H (2-6) % Eos % (Auto) 1 L (2-4) % Baso % (Auto) 0 (0-1) % PT 15.6 H (9.5-12.0) sec INR 1.45 H (0.80-1.20) Sodium 130 L (140-148) mmol/L Potassium 4.8 (3.6-5.2) mmol/L Chloride 95 L (100-108) mmol/L Carbon Dioxide 25 (21-32) mmol/L Anion Gap 14.8 H (5.0-14.0) mmol/L BUN 22 H (7-18) mg/dL Creatinine 1.0 (0.8-1.3) mg/dL Est Cr Clr Drug Dosing 79.95 mL/min Estimated GFR (MDRD) > 60 (>60) Glucose 142 H (74-106) mg/dL Calcium 8.8 (8.5-10.1) mg/dL Urine Color Urine Appearance Urine pH (4.5-8.0) Ur Specific Cumming (1.008-1.030) Urine Protein (NEGATIVE) mg/dL Urine Glucose (UA) (NEGATIVE) mg/dL Urine Ketones (NEGATIVE) mg/dL Urine Occult Blood (NEGATIVE) Urine Nitrite (NEGAITVE) Urine Bilirubin (NEGATIVE) Urine Urobilinogen (NORMAL) mg/dL Ur Leukocyte Esterase (NEGATIVE) Urine RBC (0-5) Urine WBC (0-5) Ur Epithelial Cells Amorphous Sediment Urine Bacteria Urine Mucus 07/30/16 Range/Units 15:43 WBC (4.5-11.0) K/uL RBC (4.30-5.90) M/uL Hgb (12.0-15.0) g/dL Hct (40.0-54.0) % MCV (80-98) fL MCH (27-31) pg MCHC (32-36) % Plt Count (150-400) K/uL Neut % (Auto) (36-66) % Lymph % (Auto) (24-44) % Adams % (Auto) (2-6) % Eos % (Auto) (2-4) % Baso % (Auto) (0-1) % PT (9.5-12.0) sec INR (0.80-1.20) Sodium (140-148) mmol/L Potassium (3.6-5.2) mmol/L Chloride (100-108) mmol/L Carbon Dioxide (21-32) mmol/L Anion Gap (5.0-14.0) mmol/L BUN (7-18) mg/dL Creatinine (0.8-1.3) mg/dL Est Cr Clr Drug Dosing mL/min Estimated GFR (MDRD) (>60) Glucose (74-106) mg/dL Calcium (8.5-10.1) mg/dL Urine Color Yellow Urine Appearance Clear Urine pH 6.5 (4.5-8.0) Ur Specific Cumming 1.015 (1.008-1.030) Urine Protein Trace (NEGATIVE) mg/dL Urine Glucose (UA) Normal (NEGATIVE) mg/dL Urine Ketones Negative (NEGATIVE) mg/dL Urine Occult Blood Moderate (NEGATIVE) Urine Nitrite Negative (NEGAITVE) Urine Bilirubin Negative (NEGATIVE) Urine Urobilinogen >=12 H (NORMAL) mg/dL Ur Leukocyte Esterase Negative (NEGATIVE) Urine RBC 0-5 (0-5) Urine WBC 0-5 (0-5) Ur Epithelial Cells Rare Amorphous Sediment Not seen Urine Bacteria Not seen Urine Mucus Not seen Meds: Medications Discontinued Medications Generic Name Dose Route Start Last Admin Trade Name Freq PRN Reason Stop Dose Admin Acetaminophen/Hydrocodone Bitart 1 tab 07/30/16 14:39 07/30/16 14:43 Somers 325-5 Mg PO 07/30/16 14:40 1 tab ONETIME ONE Administration Hydromorphone HCl 0.5 mg 07/30/16 12:37 07/30/16 13:05 Dilaudid IM 07/30/16 12:38 0.5 mg ONETIME ONE Administration - Re-Assessments/Exams Free Text/Narrative Re-Assessment/Exam: 07/30/16 16:08 pT HAS BEEN SEEN BY dR Ty Reyes AND IT WAS ADVISED THAT HE HAVE EPIDURALS. hE WAS HERE TO HAVE THE EPIDURAL AND HIS inr WAS TOO HIGH. hE IS RESCHEDULED FOR THE . hIS iNR TODAY IS ABOUT 1.5 TODAY. 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
[2016-07-30 14:25] VITALS: BP 155/76
[2016-07-30] MEDS ORDERED: Acetaminophen/HYDROcodone 325-5 MG Tab PO ONE (14:39)
== END 2016-07-30 17:00 | disposition home or self-care (01) ==
LOC: JP.ED 11:27
DX: M48.06 Spinal stenosis, lumbar region (principal); I63.9 Cerebral infarction, unspecified; I48.91 Unspecified atrial fibrillation; I10 Essential (primary) hypertension; K21.9 Gastro-esophageal reflux disease without esophagitis; E11.9 Type 2 diabetes mellitus without complications; Z79.4 Long term (current) use of insulin; Z79.01 Long term (current) use of anticoagulants; Z79.899 Other long term (current) drug therapy; Z90.49 Acquired absence of other specified parts of digestive tract; Z95.2 Presence of prosthetic heart valve; Z98.890 Other specified postprocedural states
CPT/HCPCS: 36415; 80048; 81001; 85025; 85610; 96372; 99284; A9270; J1170